=== PATIENT | male | born 1950 | race Caucasian/White ===

== ENCOUNTER 2016-07-06 19:07 | Inpatient (IN) ==
--- NOTE | 2016-07-06 19:13 | Emergency Department Note ---
Disposition Clinical Impression: Sepsis Qualifiers: Sepsis type: sepsis due to unspecified organism Qualified Code(s): A41.9 - Sepsis, unspecified organism Regional enteritis of small bowel Qualifiers: Digestive disease complication type: unspecified complication Qualified Code(s) : K50.019 - Crohn's disease of small intestine with unspecified complications Disposition: Admitted As Inpatient Condition: Fair Referrals: NO,PCP [Non-Partnered Physician] - Forms: Work/School Release, ED Satisfaction Letter Abdominal Pain HPI - General Chief Complaint: ED Abdominal Pain Stated Complaint: Abdominal Pain Time Seen by Provider: 07/06/16 19:12 Source: patient Mode of arrival: ambulatory Limitations: no limitations Nursing Notes Reviewed: Yes Vital Signs Reviewed: Yes - History of Present Illness Pt Subjective Complaint: abdominal pain Onset (ago): day(s) (2) Consistency: constant, Worsening Location: diffuse Pain Severity: severe Quality: aching Radiation: none Migration to: no migration Improves with: nothing Worsens with: nothing Associated symptoms: Reports: nausea, vomiting, fever, anorexia. Denies: diarrhea, hematuria Treatments prior to arrival: none - Related Data Home Medications Medication Instructions Recorded Confirmed Carvedilol [Coreg] 6.25 mg PO BID 10/15/15 10/26/15 Escitalopram [Lexapro] 10 mg PO DAILY 10/15/15 10/26/15 OLANZapine [Zyprexa] 5 mg PO BID 10/23/15 10/26/15 Ipratropium/Albuterol Sulfate 1 puff IH TID 07/06/16 07/06/16 [Combivent Respimat Inhal [place]] OLANZapine [Zyprexa] 10 mg PO QPM 07/06/16 07/06/16 Ranitidine HCl [Acid Bag Repairer] 150 mg PO BID 07/06/16 07/06/16 Sennosides/Docusate Sodium [Senna 1 each PO HS 07/06/16 07/06/16 Plus] Tamsulosin [Flomax] 0.4 mg PO HS 07/06/16 07/06/16 Allergies Allergy/AdvReac Type Severity Reaction Status Date / Time haloperidol [From Haldol] Allergy Hives Verified 10/15/15 14:00 All systems ED: reviewed and negative except as stated. Constitutional: Reports: fever Cardiovascular: Denies: chest pain, palpitations, dyspnea on exertion Gastrointestinal: Denies: hematemesis, melena, hematochezia Genitourinary: Denies: urgency, dysuria, frequency Abdominal Pain PMH - Past Medical History Medical history: Reports: COPD, GI bleed, hepatitis, hypertension, other (PUD) Psychiatric history: Reports: anxiety, bipolar, depression - Social History Smoking status: Current every day smoker Alcohol use: Reports: heavy Drug use: Reports: none Physical Exam - General Limitations: no limitations - Head Head exam: atraumatic, normocephalic, normal inspection - Eye Eye exam: Present: normal appearance, PERRL, EOMI - ENT ENT exam: normal exam, normal oropharynx, mucous membranes moist - Neck Neck exam: Present: normal inspection, full ROM, trachea midline - Chest Chest inspection: Present: normal inspection, symmetric chest wall rise - Respiratory Respiratory exam: Present: normal lung sounds bilaterally - Cardiovascular Cardiovascular exam: Present: tachycardia, normal heart sounds ( ) - Abdominal Exam Abdominal exam: Present: soft, tenderness, guarding (voluntary), normal bowel sounds Abdominal tenderness: Present: RLQ, moderate - Back Exam Back exam: Present: normal inspection, full ROM. Absent: tenderness - Neurological Exam Neurological exam: Present: alert, oriented X3 - Psychiatric Psychiatric exam: Present: normal affect, normal mood - Skin Skin exam: Present: warm, dry, intact, normal color Course - Reevaluation(s) Reevaluation #1: After 1 dose of pain medication patient states his pain is better he still has pain localized to the right lower quadrant he still does not have signs of peritonitis he does not have a rigid abdomen his belly is soft he really is not complaining any pain outside pushing the right lower quadrant he does have some mild voluntary guarding Time: 21:58 - Consultations Consultation #1: Dr. Boothe consultation would like the patient to ICU NG tube and Wilde catheter continue parenteral antibiotics IV fluids if he has any changes of his abdominal exam showing signs of peritonitis or hypotension he needs notified Time: 22:07 Consultation #2: dr. salazar to admit to ICU Time: 22:28 Vital Signs Temperature 101.4 F H 07/06/16 19:15 Pulse Rate 132 07/06/16 19:15 Respiratory Rate 16 07/06/16 19:15 Blood Pressure 137/97 07/06/16 19:15 O2 Sat by Pulse Oximetry 93 L 07/06/16 19:15 Temperature 101.4 F H 07/06/16 19:15 Pulse Rate 127 07/06/16 21:08 Respiratory Rate 18 07/06/16 21:08 Blood Pressure 107/65 07/06/16 21:08 O2 Sat by Pulse Oximetry 95 07/06/16 21:08 Oxygen Delivery Oxygen Delivery Nasal Cannula Abdominal Pain - Differential Diagnosis Differential Diagnosis: Likely: abdominal pain non-specific, abdominal pain mimics ectopic , acute appendicitis, constipation, diverticulitis, endometriosis, gastroenteritis, ischemic bowel, pancreatitis, small bowel obstruction - Medical Records Medical records reviewed: Yes I reviewed the patient's medical records. - Lab Data Lab results reviewed: Yes I reviewed the patient's lab results. Result diagrams: 07/06/16 19:21 07/06/16 19:21 Lab Results 07/06/16 07/06/16 07/06/16 Range/Units 19:21 19:21 19:21 WBC 14.5 H (4.3-11.1) K/mcL RBC 5.46 (4.19-5.50) M/mcL Hgb 14.3 (12.9-16.9) g/dL Hct 43.3 (37.5-50.1) % MCV 79.3 L (83.0-100.0) fL MCH 26.2 L (28.0-33.3) pg MCHC 33.0 (31.6-35.5) g/dL RDW 17.7 H (11.5-14.5) % Plt Count 415 H (140-400) K/mcL MPV 9.6 (9.4-12.4) fL Immature Gran % 0.6 (0-4) % Seg Neutrophils % 88.0 % Lymphocytes % 6.0 % Monocytes % 5.0 % Eosinophils % 0.1 % Basophils % 0.3 % Neutrophils # 12.8 H (1.6-8.9) K/mcL Lymphocytes # 0.9 (0.6-4.6) K/mcL Monocytes # 0.7 (0.0-1.3) K/mcL Eosinophils # 0.0 (0.0-0.6) K/mcL Basophils # 0.0 (0.0-0.2) K/mcL PT 13.6 H (9.4-12.1) Seconds INR 1.3 APTT 32.6 (26.0-36.0) Seconds ABG pH (7.32-7.45) pH Units ABG pCO2 (35-45) mmHg ABG pO2 (85-104) mmHg ABG HCO3 (21-27) mEQ/L ABG Total CO2 (20-26) mEq/L ABG O2 Saturation (95-98) % ABG Base Excess (-2.0 to 3.0) mEq/L Liter Flow L/MIN Blood Gas Modality Inspired O2 % Sodium 134 L (136-145) mEq/L Potassium 4.9 H (3.5-4.5) mEq/L Chloride 99 (98-109) mEq/L Carbon Dioxide 20 (19-29) mEq/L BUN 18 (8-26) mg/dL Creatinine 1.06 (0.72-1.25) mg/dL Est GFR ( Amer) > 60 (> 60) Est GFR (Non-Af Amer) > 60 (> 60) BUN/Creatinine Ratio 17 (6-26) Glucose 110 H (70-99) mg/dL Calculated Osmolality 281 (280-300) Lactic Acid (0.5-2.2) mmol/L Calcium 10.0 (8.6-10.8) mg/dL Magnesium 1.5 L (1.6-2.6) mg/dL Total Bilirubin 0.7 (0.2-1.2) mg/dL AST 14 (5-34) Units/L ALT 10 (0-55) Units/L Alkaline Phosphatase 88 (38-126) Units/L Serum Total Protein 9.0 H (6.0-8.3) g/dL Albumin 3.7 (3.5-5.0) g/dL Globulin 5.3 H (2.4-3.5) g/dL Albumin/Globulin Ratio 0.7 L (1.1-2.2) Lipase 31 (8-78) Units/L Ethyl Alcohol (0-10) mg/dL Blood Type Antibody Screen 07/06/16 07/06/16 07/06/16 Range/Units 19:21 19:21 19:29 WBC (4.3-11.1) K/mcL RBC (4.19-5.50) M/mcL Hgb (12.9-16.9) g/dL Hct (37.5-50.1) % MCV (83.0-100.0) fL MCH (28.0-33.3) pg MCHC (31.6-35.5) g/dL RDW (11.5-14.5) % Plt Count (140-400) K/mcL MPV (9.4-12.4) fL Immature Gran % (0-4) % Seg Neutrophils % % Lymphocytes % % Monocytes % % Eosinophils % % Basophils % % Neutrophils # (1.6-8.9) K/mcL Lymphocytes # (0.6-4.6) K/mcL Monocytes # (0.0-1.3) K/mcL Eosinophils # (0.0-0.6) K/mcL Basophils # (0.0-0.2) K/mcL PT (9.4-12.1) Seconds INR APTT (26.0-36.0) Seconds ABG pH (7.32-7.45) pH Units ABG pCO2 (35-45) mmHg ABG pO2 (85-104) mmHg ABG HCO3 (21-27) mEQ/L ABG Total CO2 (20-26) mEq/L ABG O2 Saturation (95-98) % ABG Base Excess (-2.0 to 3.0) mEq/L Liter Flow L/MIN Blood Gas Modality Inspired O2 % Sodium (136-145) mEq/L Potassium (3.5-4.5) mEq/L Chloride (98-109) mEq/L Carbon Dioxide (19-29) mEq/L BUN (8-26) mg/dL Creatinine (0.72-1.25) mg/dL Est GFR ( Amer) (> 60) Est GFR (Non-Af Amer) (> 60) BUN/Creatinine Ratio (6-26) Glucose (70-99) mg/dL Calculated Osmolality (280-300) Lactic Acid 4.1 H* (0.5-2.2) mmol/L Calcium (8.6-10.8) mg/dL Magnesium (1.6-2.6) mg/dL Total Bilirubin (0.2-1.2) mg/dL AST (5-34) Units/L ALT (0-55) Units/L Alkaline Phosphatase (38-126) Units/L Serum Total Protein (6.0-8.3) g/dL Albumin (3.5-5.0) g/dL Globulin (2.4-3.5) g/dL Albumin/Globulin Ratio (1.1-2.2) Lipase (8-78) Units/L Ethyl Alcohol < 10 (0-10) mg/dL Blood Type B POSITIVE Antibody Screen NEGATIVE 07/06/16 07/06/16 Range/Units 20:33 20:50 WBC (4.3-11.1) K/mcL RBC (4.19-5.50) M/mcL Hgb (12.9-16.9) g/dL Hct (37.5-50.1) % MCV (83.0-100.0) fL MCH (28.0-33.3) pg MCHC (31.6-35.5) g/dL RDW (11.5-14.5) % Plt Count (140-400) K/mcL MPV (9.4-12.4) fL Immature Gran % (0-4) % Seg Neutrophils % % Lymphocytes % % Monocytes % % Eosinophils % % Basophils % % Neutrophils # (1.6-8.9) K/mcL Lymphocytes # (0.6-4.6) K/mcL Monocytes # (0.0-1.3) K/mcL Eosinophils # (0.0-0.6) K/mcL Basophils # (0.0-0.2) K/mcL PT (9.4-12.1) Seconds INR APTT (26.0-36.0) Seconds ABG pH 7.38 (7.32-7.45) pH Units ABG pCO2 35 (35-45) mmHg ABG pO2 67 L (85-104) mmHg ABG HCO3 20.7 L (21-27) mEQ/L ABG Total CO2 21.8 (20-26) mEq/L ABG O2 Saturation 93 L (95-98) % ABG Base Excess -3.8 L (-2.0 to 3.0) mEq/L Liter Flow 2 L/MIN Blood Gas Modality [place] Inspired O2 28 % Sodium (136-145) mEq/L Potassium (3.5-4.5) mEq/L Chloride (98-109) mEq/L Carbon Dioxide (19-29) mEq/L BUN (8-26) mg/dL Creatinine (0.72-1.25) mg/dL Est GFR ( Amer) (> 60) Est GFR (Non-Af Amer) (> 60) BUN/Creatinine Ratio (6-26) Glucose (70-99) mg/dL Calculated Osmolality (280-300) Lactic Acid 1.9 (0.5-2.2) mmol/L Calcium (8.6-10.8) mg/dL Magnesium (1.6-2.6) mg/dL Total Bilirubin (0.2-1.2) mg/dL AST (5-34) Units/L ALT (0-55) Units/L Alkaline Phosphatase (38-126) Units/L Serum Total Protein (6.0-8.3) g/dL Albumin (3.5-5.0) g/dL Globulin (2.4-3.5) g/dL Albumin/Globulin Ratio (1.1-2.2) Lipase (8-78) Units/L Ethyl Alcohol (0-10) mg/dL Blood Type Antibody Screen - Radiology Data Radiology results reviewed: Yes I reviewed the patient's radiology results. Critical Care Time Critical Care Time: Yes Total Critical Care Time: 40 Attestation: Critical care performed: Time is exclusive of separately billable procedures. Time includes: direct patient care, patient reassessment, coordination of patient care, interpretation of data (laboratory data, radiology data, and respiratory data), review of patient's medical records, medical consultation and documentation of patient care. Procedures included in critical care time: Procedures excluded from critical care time:
[2016-07-06] MEDS ORDERED: 0.9 % Sodium Chloride 1,000 ML IVC ONE ×2 (19:20→20:45)
[2016-07-06] MEDS ORDERED: Ondansetron ODT 4 MG TAB.RAPDIS SL ONE (19:33)
[2016-07-06] MEDS ORDERED: *HR* HYDROmorphone (PF) 1 MG/ML SYRINGE IV ONE (19:33)
[2016-07-06 19:40] LABS: Basophils % 0.3 %; Eosinophils % 0.1 %; Hematocrit 43.3 % (37.5-50.1); Hemoglobin 14.3 g/dL (12.9-16.9); Immature Granulocytes % 0.6 % (0-4); Lymphocytes # 0.9 K/mcL (0.6-4.6); Mean Corpuscular Hemoglobin 26.2 pg (28.0-33.3); Mean Corpuscular Volume 79.3 fL (83.0-100.0); Mean Platelet Volume 9.6 fL (9.4-12.4); Monocytes # 0.7 K/mcL (0.0-1.3); Neutrophils # 12.8 K/mcL (1.6-8.9); Platelet Count 415 K/mcL (140-400); Red Blood Count 5.46 M/mcL (4.19-5.50); Red Cell Distribution Width 17.7 % (11.5-14.5)
[2016-07-06 19:51] LABS: INR 1.3; Prothrombin Time 13.6 Seconds (9.4-12.1)
[2016-07-06 19:53] LABS: Activated Partial Thrombo Time 32.6 Seconds (26.0-36.0)
[2016-07-06 19:54] LABS: Alanine Aminotransferase 10 Units/L (0-55); Albumin 3.7 g/dL (3.5-5.0); Albumin/Globulin Ratio 0.7 (1.1-2.2); Alkaline Phosphatase 88 Units/L (38-126); Aspartate Amino Transferase 14 Units/L (5-34); BUN/Creatinine Ratio 17 (6-26); Bilirubin,Total 0.7 mg/dL (0.2-1.2); Blood Urea Nitrogen 18 mg/dL (8-26); Carbon Dioxide 20 mEq/L (19-29); Chloride 99 mEq/L (98-109); Globulin 5.3 g/dL (2.4-3.5); Glucose 110 mg/dL (70-99); Lipase 31 Units/L (8-78); Magnesium 1.5 mg/dL (1.6-2.6); Osmolality,Calculated 281 (280-300); Potassium 4.9 mEq/L (3.5-4.5); Sodium 134 mEq/L (136-145); eGFR For African Americans > 60 (> 60); eGFR For Non-African Americans > 60 (> 60)
[2016-07-06] MEDS ORDERED: Piperacillin/Tazobactam 3.375 GM in D5% in Water (Mini-Bag+) 100 ML IVPB ONE (19:57)
[2016-07-06 20:38] LABS: ABG Base Excess -3.8 mEq/L (-2.0 to 3.0); ABG HCO3 20.7 mEQ/L (21-27); ABG Oxygen Saturation 93 % (95-98); ABG PCO2 35 mmHg (35-45); ABG PH 7.38 pH Units (7.32-7.45); ABG PO2 67 mmHg (85-104); ABG TCO2 21.8 mEq/L (20-26)
[2016-07-06 20:39] LABS: Blood Gas FiO2 28 %; Blood Gas Liter Flow 2 L/MIN
[2016-07-06] MEDS ORDERED: MetroNIDAZOLE 500 MG/100 ML 500 MG/100 ML BAG IVPB ONE (20:53)
[2016-07-06] MEDS ORDERED: Levofloxacin 750 MG/150 ML 750 MG/150 ML BAG IVPB ONE (20:53)
[2016-07-07] MEDS ORDERED: Naloxone 0.4 MG/ML INJ IVP PRN (01:50)
[2016-07-07] MEDS ORDERED: *HR* LORazepam 2 MG/ML VIAL IVP PRN (01:50)
[2016-07-07] MEDS ORDERED: Ketorolac 15 MG/ML VIAL IVP PRN (02:09)
--- NOTE | 2016-07-07 02:31 | Internal Med History&Physical ---
<YonySuyapaheriberto Beckford - Last Filed: 07/07/16 05:41> Date of Encounter: 07/07/16 Time of Encounter: 02:00 Assessment and Plan (1) Sepsis Current visit: Yes Status: Acute WBC 14.5, tachycardia, tachypnea, hypotension, MAP 61 Febrile upon presentation to hospital Lactate 4.6, Cr 1.06, InR 1.3 CT abdomen/pelvis: multiple loops of fluid-filled, non dilated small bowel -Bowel wall thickening with surrounding fat stranding and free fluid -Diffuse pericholecystic, pernephritic, pericystic stranding Concern for SBO versus small bowel enteritis Flagyl, Levoquin, and Zosyn given in ED Continue Zosyn for now Will challenge with fluids CXR, pending Blood culture, pending Qualifiers: Sepsis type: sepsis due to unspecified organism Qualified Code(s): A41.9 - Sepsis, unspecified organism (2) Small bowel obstruction Current visit: Yes Status: Acute CT abdomen/pelvis: multiple loops of fluid-filled, non dilated small bowel -Bowel wall thickening with surrounding fat stranding and free fluid -Diffuse pericholecystic, pernephritic, pericystic stranding Concern for SBO versus small bowel enteritis Surgery team has been consulted Recommend NGT decompression. However, patient is refusing. I discussed the risks of this decision at length with patient. NPO diet (3) COPD (chronic obstructive pulmonary disease) Current visit: No Status: Acute Patient with cough productive of 3 weeks duration On exam, patient is hypoxic ABG pH 7.38, pO2 67, pCO2 35, HCO3 20.7, TCO2 21.8, O2 sat 93% on 3L CT Ab/Pelvis: Atelectasis bilateral lung bases, emphysematous changes identified CXR, pending Cannot exclude the possibility of exacerbation complicating current condition Qualifiers: COPD type: unspecified COPD Qualified Code(s): J44.9 - Chronic obstructive pulmonary disease, unspecified (4) Hypomagnesemia Current visit: Yes Status: Acute replaced 2g (5) Hepatitis C Current visit: No Status: Chronic Qualifiers: Viral hepatitis chronicity: chronic Hepatic coma status: without hepatic coma Qualified Code(s): B18.2 - Chronic viral hepatitis C (6) DVT prophylaxis Current visit: No Status: Acute Internal Medicine - H&P: HPI Chief complaint: abdominal pain, nausea, vomiting Admitted From: Emergency Dept Plans for Post Hospital Care: Home History of present illness: Mr. Melendez is a 66 year old male who presented to the hospital with 3 day history of abdominal pain. Patient describes pain as a sharp, stabbing pain that began umbilicus. Pain began to wrap around to sides bilaterally and radiated to the back. Pain is an 8/10 at this time. Upon onset of abdominal pain, patient had 4 episodes of non-bloody diarrhea. He began vomiting the following morning. Patient states that he has had a similar episode in the past. He claims that his "bowel twisted on itself". He was treated at [facility] in [place], [place]. However, he does not remember if he had a bowel resection was performed at that time. He states that pain was improved with lying down. Pain worsened with coughing. Pain has worsened over the last 3 days. Admits fever, chills, dizziness, racing heart, tachypnea, dyspnea, tensmus, nausea, vomiting Denies diaphoresis, chest pain, palpitations, increased cough with sputum, increased wheeze, hematochezia, melena, urinary symptoms Past Med Surg Social Fam HX - Past Medical History Medical history: COPD, GI bleed, hepatitis (recently treated for Hep C), hypertension, other Psychiatric history: anxiety, bipolar, depression - Past Surgical History Surgical History: colostomy, other (bowel resection with colostomy for diverticulitis) - Social History Smoking Status: Current every day smoker Smokeless Tobacco Status: No Alcohol use: none Drug use: none Internal Medicine - H&P: Meds Carvedilol [Coreg] 6.25 mg PO BID 10/15/15 [History] Escitalopram [Lexapro] 10 mg PO DAILY 10/15/15 [History] OLANZapine [Zyprexa] 5 mg PO QAM 10/23/15 [History] Ipratropium/Albuterol Sulfate [Combivent Respimat Inhal [place]] 1 puff IH TID [History] OLANZapine [Zyprexa] 10 mg PO QPM 07/06/16 [History] Ranitidine HCl [Acid Concrete Pile Driver Operator] 150 mg PO BID 07/06/16 [History] Sennosides/Docusate Sodium [Senna Plus] 1 each PO HS 07/06/16 [History] Tamsulosin [Flomax] 0.4 mg PO HS 07/06/16 [History] Allergies haloperidol [From Haldol] Allergy (Verified 10/15/15 14:00) Hives All Systems PM: A 10-system review of systems was performed and is negative for pertinent findings except as documented above in the HPI. - Constitutional Constitutional: chills, fever(s) - Cardiovascular Cardiovascular ROS IM: dyspnea, irregular heart rhythm, no chest pain, no diaphoresis, no palpitations - Respiratory Respiratory: cough (cough present at baseline, now cough is productive of yellow sputum), dyspnea, pain with cough (pain located in abdomen with cough), no wheezing - Gastrointestinal Gastrointestinal: abdominal pain, bloating, change in bowel habits, change in stool character, nausea, tenesmus, vomiting, no hematochezia, no melena - Genitourinary Genitourinary ROS male: no difficulty urinating - Constitutional Vitals: Temp Pulse Resp BP Pulse Ox 97.6 F 107 14 76/55 93 L 07/07/16 00:00 07/07/16 02:00 07/07/16 02:00 07/07/16 02:00 07/07/16 02:00 General appearance: Present: A&O X 3, answers questions appropriately - Head Head exam: Present: atraumatic, normal inspection, normocephalic - Eye Eye exam: Present: scleral icterus - Neck Neck exam general surgery: Present: full ROM, normal inspection, supple - Respiratory Respiratory exam: Present: CTAB, tachypnea - Cardiovascular Cardiovascular exam: Present: distant heart sounds, +S1, +S2, tachycardia - GI/Abdominal GI/Abdominal exam: Present: distended, guarding, rebound, tenderness. Absent: normal bowel sounds Additional comments: post-surgical scars present - Extremities Exam Extremities exam: Absent: pedal edema (RUQ and RLQ bowel sounds absent) - Neurological Exam Neurological exam: Present: oriented X3 - Psychiatric Psychiatric exam: Present: normal affect, normal mood Internal Med - H&P Results - Labs CBC & Chem 7: 07/07/16 05:02 07/07/16 05:02 - Attending Attestation I examined this patient and my medical decision-making was reviewed with the GUIDE DOG INSTRUCTOR/PA/Advanced Practice Nurse/Resident Physician. I agree with the documented findings, disposition and treatment plan as described except to the extent set forth below. <Madeline Villa R - Last Filed: 07/07/16 09:51> Date of Encounter: 07/07/16 Internal Medicine - H&P: HPI History of present illness: Mr. Melendez is a 66 year old male All Systems PM: A 10-system review of systems was performed and is negative for pertinent findings except as documented above in the HPI. - Constitutional Vitals: Temp Pulse Resp BP Pulse Ox 98.1 F 96 18 89/58 93 L 07/07/16 07:30 07/07/16 09:00 07/07/16 09:00 07/07/16 09:00 07/07/16 09:00 Internal Med - H&P Results - Labs CBC & Chem 7: 07/07/16 05:02 07/07/16 05:02 Labs: Short CBC 07/07/16 Range/Units 05:02 WBC 22.5 H D (4.3-11.1) K/mcL Hgb 11.4 L D (12.9-16.9) g/dL Hct 36.0 L (37.5-50.1) % Plt Count 293 (140-400) K/mcL Neutrophils # 20.0 H (1.6-8.9) K/mcL BMP 07/07/16 05:02 Sodium 136 Potassium 4.9 H Chloride 106 Carbon Dioxide 18 L BUN 22 Creatinine 1.22 Glucose 90 Calcium 8.1 L D Urine 07/07/16 Range/Units 05:40 Urine Color Yellow (Yellow) Urine Clarity Clear (Clear) Urine pH 5.5 (5.0-8.0) pH Units Ur Specific Vendor 1.020 (1.010-1.025) Urine Protein Trace (Neg-Trace) mg/dL Urine Glucose (UA) Normal (Normal) mg/dL - Impressions ITS Impressions Chest X-Ray 07/07/16 02:42 IMPRESSION: Mild perihilar edema with bibasilar atelectasis. D/ / 07/07/2016 07:03:49 Nitesh López MD / bcarter Interpreting Provider: Nitesh López MD - Attending Attestation I examined this patient and my medical decision-making was reviewed with the GUIDE DOG INSTRUCTOR/PA/Advanced Practice Nurse/Resident Physician. I agree with the documented findings, disposition and treatment plan as described except to the extent set forth below. I have personally evaluated the pt and discussed the details with the architecture internship/ resident. Pt was admitted with 3 day h/o abdominal pain and diarrhea prior to presentation. He denies any food born infection. He has abdominal tenderness. CT scan of the abdomen and pelvis, shows possible enteritis and free fluid. Pt was hypotensive no significant improvement after about 3 L - will give further IV fluid challenge. If not improving, will consider vasopressors. He was given levofloxacin and metronidazole, in the ER. Change the antibiotics to ertapenem. Will check for c diff toxin and stool culture. Surgical consultation. CXR shows atelectasis start incentive spirometer. Reduce IV fluids.
[2016-07-07] MEDS: 0.9 % Sodium Chloride 1,000 ML IVC SCH ×4 (02:34→23:27)
[2016-07-07] MEDS ORDERED: 0.9 % Sodium Chloride 1,000 ML IVC ONE ×2 (04:33→05:42)
[2016-07-07] MEDS ORDERED: Magnesium Sulfate 2 GM in D5% in Water 100 ML IVPB ONE (04:40)
[2016-07-07] MEDS: Ertapenem 1,000 MG in 0.9 % Sodium Chloride Mini Bag 100 ML IVPB SCH (04:56)
[2016-07-07 05:11] LABS: Basophils # 0.1 K/mcL (0.0-0.2); Basophils % 0.2 %; Hemoglobin 11.4 g/dL (12.9-16.9); Immature Granulocytes % 0.5 % (0-4); Lymphocytes # 1.4 K/mcL (0.6-4.6); Lymphocytes % 6.2 %; Mean Corpuscular HGB Conc 31.7 g/dL (31.6-35.5); Mean Corpuscular Hemoglobin 25.5 pg (28.0-33.3); Mean Corpuscular Volume 80.5 fL (83.0-100.0); Monocytes % 4.4 %; Platelet Count 293 K/mcL (140-400); Red Blood Count 4.47 M/mcL (4.19-5.50); Red Cell Distribution Width 17.2 % (11.5-14.5); Segmented Neutrophils % 88.7 %
[2016-07-07 05:25] LABS: BUN/Creatinine Ratio 18 (6-26); Blood Urea Nitrogen 22 mg/dL (8-26); Carbon Dioxide 18 mEq/L (19-29); Chloride 106 mEq/L (98-109); Glucose 90 mg/dL (70-99); Osmolality,Calculated 285 (280-300); Potassium 4.9 mEq/L (3.5-4.5); Sodium 136 mEq/L (136-145); eGFR For African Americans > 60 (> 60); eGFR For Non-African Americans 60 (> 60)
[2016-07-07 05:26] LABS: Calcium 8.1 mg/dL (8.6-10.8)
[2016-07-07] MEDS ORDERED: Acetaminophen 325 MG TABLET PO PRN (05:43)
[2016-07-07 05:46] LABS: Bilirubin,Urine Small (Negative); Blood,Urine Negative (Negative); Clarity,Urine Clear (Clear); Color,Urine Yellow (Yellow); Glucose,Urine (UA) Normal (Normal); Ketones,Urine Negative (Negative); Leukocyte Esterase,Urine Negative (Negative); Nitrite,Urine Negative (Negative); PH,Urine 5.5 pH Units (5.0-8.0); Protein,Urine Trace mg/dL (Neg-Trace); Urobilinogen,Urine Normal (Normal)
[2016-07-07] MEDS ORDERED: Sodium Phosphate 30 MMOL in D5% in Water 100 ML IVPB PRN (05:48)
[2016-07-07] MEDS ORDERED: Calcium Gluconate 1,000 MG in D5% in Water 100 ML IVPB PRN (05:48)
[2016-07-07] MEDS ORDERED: Magnesium Sulfate 2 GM in D5% in Water 100 ML IVPB PRN (05:52)
[2016-07-07] MEDS ORDERED: Piperacillin/Tazobactam 3.375 GM in D5% in Water (Mini-Bag+) 100 ML IVPB SCH (08:00)
[2016-07-07] MEDS: *HR* Enoxaparin 40 MG/0.4 ML SYRINGE SQ SCH (08:16)
[2016-07-07] MEDS: *HR* HYDROmorphone (PF) 1 MG/ML SYRINGE IVP PRN ×3 (08:16→20:06)
[2016-07-07] MEDS: Nicotine 21 MG PATCH.TD24 TD SCH (08:17)
--- NOTE | 2016-07-07 08:17 | Pulmonology Consult Note ---
Date of Encounter: 07/07/16 Time of Encounter: 08:08 History of Present Illness Consult date: 07/07/16 Requesting physician: Suyapa Bhakta Reason for consult: other (Severe sepsis, small bowel enteritis) Chief complaint: Abdominal pain History of present illness: Mr. kaur is a 66 year old male with history of COPD, history of GI bleed, history of treated Hepatitis C, hypertension, marfanoid syndome, neurofibromatosis, and surgical history of colon section in the due to diverticulitis who presented to the ED with worsening intermittent sharp stabbing 8/10 abdominal pain that radiated from his umbilicus to his back bilaterally. Patient had 4 episodes of nonbloody diarrhea, nausea, and vomiting during onset of the abdominal pain. He has not had anything to eat, has had no additional bowel movements, and no additional episodes of vomiting for about 3 days. Patient reports pain when coughing, and improved when lying down. Patient has not had this sort of pain in the past. Patient does report some fever and chills. Patient also reports chronic cough, but no increased sputum, change in sputum color, or increased shortness of breath. Patient denies headache, changes in vision or hearing, dysphagia, chest pain, shortness of breath, changes in urination, dysuria, weakness, or loss of sensation. Upon admission patient was determined to be hypotensive, tachypneic, tachycardic , with wbc 14.5, and lactic acid of 4.1. Patient was started on antibiotics, blood cultures sent, and bolus of fluids given. CT abdomen pelvis revealed multiple loops of fluid-filled nondilated small bowel with mild small bowel wall thickening throughout the pelvis and right lower quadrant with surrounding mesenteric stranding as well as a small amount of simple free fluid, no definite obstructive process. CXR revealed mild perfihilar edema with bibasilar atelectasis. EKG revealed sinus tachycardia. Past Med Surg Social Fam HX - Past Medical History Medical history: COPD, GI bleed, hepatitis (treated for Hep C), hypertension, other (neurofibromatosis (confirmed by resection and biopsy), marfanoid syndrome ) Psychiatric history: anxiety, bipolar, depression - Past Surgical History Surgical History: colectomy (unspecified laterality in for diverticulitis) , colostomy (history of diverting colostomy, reanastomosed) - Social History Smoking Status: Current every day smoker Smokeless Tobacco Status: No Alcohol use: none Drug use: none Medications and Allergies Carvedilol [Coreg] 6.25 mg PO BID 10/15/15 [History] Escitalopram [Lexapro] 10 mg PO DAILY 10/15/15 [History] OLANZapine [Zyprexa] 5 mg PO QAM 10/23/15 [History] Ipratropium/Albuterol Sulfate [Combivent Respimat Inhal [place]] 1 puff IH TID [History] OLANZapine [Zyprexa] 10 mg PO QPM 07/06/16 [History] Ranitidine HCl [Acid Public Address System Mechanic] 150 mg PO BID 07/06/16 [History] Sennosides/Docusate Sodium [Senna Plus] 1 each PO HS 07/06/16 [History] Tamsulosin [Flomax] 0.4 mg PO HS 07/06/16 [History] Allergies haloperidol [From Haldol] Allergy (Verified 10/15/15 14:00) Hives All Systems: A 10-system review of systems was performed and is negative for pertinent findings except as documented above in the HPI. - Constitutional Constitutional: as per HPI, chills, fever(s), no headache(s), no night sweats, no weakness - EENT Eyes: as per HPI Ears: as per HPI Nose, mouth and throat: as per HPI, no dysphagia, no headache(s), no neck pain - Cardiovascular Cardiovascular: as per HPI, dyspnea, palpitations, no chest pain, no edema - Respiratory Respiratory: as per HPI, cough, dyspnea, no pain on inspirtation, no chest congestion, no excessive phlegm production, no change in phlegm color - Gastrointestinal Gastrointestinal: as per HPI, abdominal pain (diffuse), diarrhea, nausea, vomiting, no heartburn, no melena - Genitourinary Genitourinary: as per HPI, no dysuria, no hematuria - Musculoskeletal Musculoskeletal: as per HPI, no numbness, no tingling - Integumentary Integumentary: as per HPI - Neurological Neurological: as per HPI, no abnormal gait, no confusion, no dizziness, no headache(s), no tingling, no weakness Physical Examination Vital Signs: Vital Signs, Last 4 Hours Temp Pulse Resp BP Pulse Ox 07/07/16 07:30 98.1 F 07/07/16 07:00 98 12 102/65 91 L 07/07/16 06:00 93 16 94/60 91 L 07/07/16 05:04 98.1 F 07/07/16 05:00 92 16 92/62 94 L General appearance: no acute distress, alert Eyes: nonicteric ENT: oropharynx moist Neck: supple, no lymphadenopathy, no JVD Effort: normal Inspection: normal, other (pectus excavatum) Auscultation: bilateral: diminished breath sounds, wheezes Cardiovascular: other (tachycardic, s1 and s2 normal, no audible murmurs) Gastrointestinal: absent bowel sounds, tender (mild, all quadrants), other ( distended, surgical scars noted, periumbilical hernia noted) Integumentary: normal Extremities: no cyanosis, no edema, no clubbing, pink and warm, pulses normal Musculoskeletal: no deformities Gait: normal posture normal mental status, non-focal exam, pupils equal and round, CN II-XII normal, motor strength normal and symmetric mood appropriate, affect normal Results - Laboratory Findings CBC and BMP: 07/07/16 05:02 07/07/16 05:02 ABG ABG pH 7.38 pH Units (7.32-7.45) 07/06/16 20:33 ABG pCO2 35 mmHg (35-45) 07/06/16 20:33 ABG pO2 67 mmHg (85-104) L 07/06/16 20:33 ABG O2 Saturation 93 % (95-98) L 07/06/16 20:33 PT/INR, D-dimer PT 13.6 Seconds (9.4-12.1) H 07/06/16 19:21 Abnormal lab findings: Abnormal lab results WBC 22.5 K/mcL (4.3-11.1) H D 07/07/16 05:02 Hgb 11.4 g/dL (12.9-16.9) L D 07/07/16 05:02 Hct 36.0 % (37.5-50.1) L 07/07/16 05:02 MCV 80.5 fL (83.0-100.0) L 07/07/16 05:02 MCH 25.5 pg (28.0-33.3) L 07/07/16 05:02 RDW 17.2 % (11.5-14.5) H 07/07/16 05:02 Neutrophils # 20.0 K/mcL (1.6-8.9) H 07/07/16 05:02 PT 13.6 Seconds (9.4-12.1) H 07/06/16 19:21 ABG pO2 67 mmHg (85-104) L 07/06/16 20:33 ABG HCO3 20.7 mEQ/L (21-27) L 07/06/16 20:33 ABG O2 Saturation 93 % (95-98) L 07/06/16 20:33 ABG Base Excess -3.8 mEq/L (-2.0 to 3.0) L 07/06/16 20:33 Potassium 4.9 mEq/L (3.5-4.5) H 07/07/16 05:02 Carbon Dioxide 18 mEq/L (19-29) L 07/07/16 05:02 Calcium 8.1 mg/dL (8.6-10.8) L D 07/07/16 05:02 Ionized Calcium 1.02 mmol/L (1.15-1.35) L 07/07/16 05:02 Magnesium 1.5 mg/dL (1.6-2.6) L 07/06/16 19:21 Serum Total Protein 9.0 g/dL (6.0-8.3) H 07/06/16 19:21 Globulin 5.3 g/dL (2.4-3.5) H 07/06/16 19:21 Albumin/Globulin Ratio 0.7 (1.1-2.2) L 07/06/16 19:21 Urine Bilirubin Small (Negative) H 07/07/16 05:40 - Clinical Findings Intake & Output: Intake & Output 07/06/16 07/07/16 07/07/16 23:59 07:59 15:59 Intake Total 700 / 3050 2204 / 2204 Output Total 550 / 550 Balance 700 / 3050 1654 / 1654 Consult Discharge Plan - Plan [facility]errals: [facility] [Primary Care Provider] -
[2016-07-07] MEDS ORDERED: NON-FORMULARY MEDICATION 1 EACH EACH (Ipratropium/Albuterol Sulfate [Combivent Respimat In IH SCH (09:00)
[2016-07-07] MEDS: Ipratropium 1 PUFF INHALER IH SCH ×2 (10:24→17:19)
--- NOTE | 2016-07-07 11:03 | Electrocardiograph Report ---
[facility] Test Date: 2016-07-06 Pat Name: Ankit Melendez Department: 103 Room: [facility] Gender: M Head Animal Trainer: MARLIN : 1950 Requested By: Duane Bhakta Order Number: [id number] Reading MD: Wing Martinez MD Measurements Intervals [place] Rate: 134 P: 48 VA: 167 QRS: 42 QRSD: 81 T: 30 QT: 275 QTc: 354 Interpretive Statements SINUS TACHYCARDIA Electronically Signed On 07-07-16 11:01:27 EST by Wing Martinez MD
--- NOTE | 2016-07-07 16:12 | General Surgery Consult Note ---
Date of Encounter: 07/07/16 Time of Encounter: 15:30 Assessment and Plan (1) Enteritis Current Visit: Yes Status: Acute Continue with conservative measures at this time: NPO with NG tube to LIWS IV fluids IV antibiotics- Ertapenem Supportive care/pain control Serial abdominal exams Likely will repeat CT in the am with oral contrast as long as the patient continues to improve Repeat labs in the am Surgery will continue to follow and assess progress- no urgent surgical intervention indicated at this time. History of Present Illness Consult date: 07/07/16 Reason for consult: abdominal pain Requesting physician: Duane Bahkta History of present illness: Mr. Melendez is a 66 year old male who presented to the hospital with 3 day history of abdominal pain. Patient describes pain as a sharp, stabbing pain that began around his umbilicus. Pain radiated around to sides bilaterally and radiated to the back. Pain is an 8/10 at this time but has improved since admission to the hospital. Upon onset of abdominal pain, patient had 4 episodes of non-bloody diarrhea. He did experience some nausea/vomiting prior to arrival to the hospital but states that this is better. Patient states that he has had a similar episode in the past. He claims that his "bowel twisted on itself". He was treated at [facility]. He states that pain was improved with lying down. Pain worsened with coughing. He has had a CT scan which shows concerns for enteritis. We have been asked to see and evaluate the patient for surgical recommendations. Past Med Surg Social Fam HX - Past Medical History Source: old records reviewed Medical history: COPD, GI bleed, hepatitis (recently treated for Hep C), hypertension, other Psychiatric history: anxiety, bipolar, depression - Past Surgical History Surgical History: colostomy (and subsequent revearsal), other (bowel resection with colostomy for diverticulitis) - Social History Smoking Status: Current every day smoker Smokeless Tobacco Status: No Alcohol use: none Drug use: none Current living situation: Home - Independent Activity Level: Independent ambulation Medications and Allergies Carvedilol [Coreg] 6.25 mg PO BID 10/15/15 [History] Escitalopram [Lexapro] 10 mg PO DAILY 10/15/15 [History] OLANZapine [Zyprexa] 5 mg PO QAM 10/23/15 [History] Ipratropium/Albuterol Sulfate [Combivent Respimat Inhal [place]] 1 puff IH TID [History] OLANZapine [Zyprexa] 10 mg PO QPM 07/06/16 [History] Ranitidine HCl [Acid Sheeter Waxer Operator] 150 mg PO BID 07/06/16 [History] Sennosides/Docusate Sodium [Senna Plus] 1 each PO HS 07/06/16 [History] Tamsulosin [Flomax] 0.4 mg PO HS 07/06/16 [History] Allergies haloperidol [From Haldol] Allergy (Verified 10/15/15 14:00) Hives Review of Systems All systems PM: reviewed and no additional remarkable complaints except as stated (in the HPI) All systems PM: A 10-system review of systems was performed and is negative for pertinent findings except as documented above in the HPI. General Surgery Exam Initial Vital Signs Temp Pulse Resp BP Pulse Ox 101.4 F H 132 16 137/97 93 L 07/06/16 19:15 07/06/16 19:15 07/06/16 19:15 07/06/16 19:15 07/06/16 19:15 - General physical appearance well developed, well nourished, moderate pain - Eyes normal ocular movement - ENT normal mucosa, atraumatic, normocephalic - Neck trachea midline - Respiratory normal respiratory effort, clear to auscultation - Cardiovascular Cardiovascular exam: Present: tachycardia - Abdomen Abdomen general surgery: Present: bowel sounds present (hypoactive), soft, distended, tender (moderately tender and improving), wound (NG tube to LIWS) - Integumentary Integumentary general surgery: Present: warm and dry - Neurologic Present: CN 2-12 grossly intact - Psychiatric Psychiatric general surgery: Present: appropriate, oriented to person, oriented to place, oriented to time, speech is normal, memory intact Exam Initial Vital Signs Temp Pulse Resp BP Pulse Ox 101.4 F H 132 16 137/97 93 L 07/06/16 19:15 07/06/16 19:15 07/06/16 19:15 07/06/16 19:15 07/06/16 19:15 Results - Labs 07/07/16 05:02 07/07/16 05:02 Abnormal lab results WBC 22.5 K/mcL (4.3-11.1) H D 07/07/16 05:02 Hgb 11.4 g/dL (12.9-16.9) L D 07/07/16 05:02 Hct 36.0 % (37.5-50.1) L 07/07/16 05:02 MCV 80.5 fL (83.0-100.0) L 07/07/16 05:02 MCH 25.5 pg (28.0-33.3) L 07/07/16 05:02 RDW 17.2 % (11.5-14.5) H 07/07/16 05:02 Neutrophils # 20.0 K/mcL (1.6-8.9) H 07/07/16 05:02 PT 13.6 Seconds (9.4-12.1) H 07/06/16 19:21 ABG pO2 67 mmHg (85-104) L 07/06/16 20:33 ABG HCO3 20.7 mEQ/L (21-27) L 07/06/16 20:33 ABG O2 Saturation 93 % (95-98) L 07/06/16 20:33 ABG Base Excess -3.8 mEq/L (-2.0 to 3.0) L 07/06/16 20:33 Potassium 4.9 mEq/L (3.5-4.5) H 07/07/16 05:02 Carbon Dioxide 18 mEq/L (19-29) L 07/07/16 05:02 Calcium 8.1 mg/dL (8.6-10.8) L D 07/07/16 05:02 Ionized Calcium 1.02 mmol/L (1.15-1.35) L 07/07/16 05:02 Magnesium 1.5 mg/dL (1.6-2.6) L 07/06/16 19:21 Serum Total Protein 9.0 g/dL (6.0-8.3) H 07/06/16 19:21 Globulin 5.3 g/dL (2.4-3.5) H 07/06/16 19:21 Albumin/Globulin Ratio 0.7 (1.1-2.2) L 07/06/16 19:21 Urine Bilirubin Small (Negative) H 07/07/16 05:40 Diabetes panel 07/07/16 Range/Units 05:02 Sodium 136 (136-145) mEq/L Potassium 4.9 H (3.5-4.5) mEq/L Chloride 106 (98-109) mEq/L Carbon Dioxide 18 L (19-29) mEq/L BUN 22 (8-26) mg/dL Creatinine 1.22 (0.72-1.25) mg/dL Glucose 90 (70-99) mg/dL Calcium 8.1 L D (8.6-10.8) mg/dL Calcium panel 07/07/16 07/07/16 Range/Units 05:02 05:07 Calcium 8.1 L D (8.6-10.8) mg/dL Phosphorus 4.0 (2.3-4.7) mg/dL Pituitary panel 07/07/16 Range/Units 05:02 Sodium 136 (136-145) mEq/L Potassium 4.9 H (3.5-4.5) mEq/L Chloride 106 (98-109) mEq/L Carbon Dioxide 18 L (19-29) mEq/L BUN 22 (8-26) mg/dL Creatinine 1.22 (0.72-1.25) mg/dL Glucose 90 (70-99) mg/dL Calcium 8.1 L D (8.6-10.8) mg/dL Adrenal panel 07/07/16 Range/Units 05:02 Sodium 136 (136-145) mEq/L Potassium 4.9 H (3.5-4.5) mEq/L Chloride 106 (98-109) mEq/L Carbon Dioxide 18 L (19-29) mEq/L BUN 22 (8-26) mg/dL Creatinine 1.22 (0.72-1.25) mg/dL Glucose 90 (70-99) mg/dL Calcium 8.1 L D (8.6-10.8) mg/dL All other labs normal. - Imaging CT scan - abdomen: report reviewed CT scan - pelvis: report reviewed Additional studies: Abdomen/Pelvis CT 07/06/16 19:39 IMPRESSION: 1. Multiple loops of fluid-filled nondilated small bowel with mild small bowel wall thickening throughout the pelvis and right lower quadrant with surrounding mesenteric stranding as well as a small amount of simple free fluid. No definite obstructive process is identified. Findings may reflect a severe infectious small bowel enteritis with early ischemic enteritis not entirely excluded. The appendix is not definitively visualized. Results were called by Dr. Humberto Andrade MD to Duane Bhakta on 07/06/2016 at 20:54. D/ / Humberto Andrade MD / Humberto Andrade MD Interpreting Provider: Humberto Andrade MD Chest X-Ray 07/07/16 02:42 IMPRESSION: Mild perihilar edema with bibasilar atelectasis. D/ / 07/07/2016 07:03:49 Nitesh López MD / [facility] Interpreting Provider: Nitesh López MD Consult Discharge Plan - Plan [facility]errals: [facility] [Primary Care Provider] - - Attending Attestation I examined this patient and my medical decision-making was reviewed with the EMBEDDED LINUX ENGINEER/PA/Advanced Practice Nurse/Resident Physician. I agree with the documented findings, disposition and treatment plan as described except to the extent set forth below.
[2016-07-07] MEDS ORDERED: Acetaminophen IV 500 MG/50 ML INFUS..BTL IVPB ONE (23:57)
[2016-07-08] MEDS: *HR* HYDROmorphone (PF) 1 MG/ML SYRINGE IVP PRN ×4 (01:27→20:13)
[2016-07-08] MEDS: Ipratropium 1 PUFF INHALER IH SCH ×3 (02:06→16:22)
[2016-07-08 03:27] LABS: Basophils # 0.1 K/mcL (0.0-0.2); Basophils % 0.3 %; Hematocrit 34.1 % (37.5-50.1); Immature Granulocytes % 0.8 % (0-4); Lymphocytes # 1.3 K/mcL (0.6-4.6); Lymphocytes % 6.2 %; Mean Corpuscular HGB Conc 32.3 g/dL (31.6-35.5); Mean Corpuscular Hemoglobin 25.7 pg (28.0-33.3); Mean Corpuscular Volume 79.7 fL (83.0-100.0); Mean Platelet Volume 10.3 fL (9.4-12.4); Monocytes # 0.9 K/mcL (0.0-1.3); Monocytes % 4.7 %; Neutrophils # 17.7 K/mcL (1.6-8.9); Platelet Count 283 K/mcL (140-400); Red Blood Count 4.28 M/mcL (4.19-5.50); Red Cell Distribution Width 17.5 % (11.5-14.5)
[2016-07-08 03:36] LABS: BUN/Creatinine Ratio 24 (6-26); Blood Urea Nitrogen 19 mg/dL (8-26); Calcium 8.6 mg/dL (8.6-10.8); Carbon Dioxide 19 mEq/L (19-29); Chloride 107 mEq/L (98-109); Glucose 89 mg/dL (70-99); Magnesium 1.9 mg/dL (1.6-2.6); Osmolality,Calculated 286 (280-300); Phosphorous 2.9 mg/dL (2.3-4.7); Potassium 4.2 mEq/L (3.5-4.5); Sodium 137 mEq/L (136-145); eGFR For African Americans > 60 (> 60); eGFR For Non-African Americans > 60 (> 60)
[2016-07-08] MEDS: *HR* Enoxaparin 40 MG/0.4 ML SYRINGE SQ SCH (06:08)
--- NOTE | 2016-07-08 07:47 | Internal Med Progress Note ---
Date of Encounter: 07/08/16 Time of Encounter: 07:30 - Assessment and plan (1) Severe sepsis Current Visit: Yes Status: Acute Assessment and plan: source is intraabdominal process (enteritis, suspected SBO, r/o mesenteric ischemia). 07/07 am: CT abdomen/pelvis showed multiple loops of fluid-filled, non dilated small bowel, bowel wall thickening with surrounding fat stranding and free fluid. diffuse pericholecystic, pernephritic, pericystic stranding. 07/07 pm: KUB showed malpositioned NGT, multiple air-filled mildly distended loops of large and small bowel in the mid abdomen. blood culture negative so far. Appreciate surgical input. sepsis is slowly responding to medical management ( lactic acid came down to 1.3 from 4.3 on admission. temp curve is trending down 101.4 -> 100.1, WBC trend up but now is going down to 20.1). Continue empiric antiobiotics with ertapenem, NGT with LIWS, IVF, NPO. (2) Enteritis Current Visit: Yes Status: Acute Assessment and plan: plan as above. (3) Small bowel obstruction Current Visit: Yes Status: Suspected Assessment and plan: KUB revealed worsening of abdominal distenstion. Patient with significant history of multiple episodes of SBO. repeat KUB this morning. surgery team is following. (4) Acute respiratory failure with hypoxia Current Visit: No Status: Acute Assessment and plan: secondary to sepsis and abdominal distension. not on oxygen at home. he has COPD. Continue oxygen supplementation and albuterol/atrovent inhal. (5) COPD (chronic obstructive pulmonary disease) Current Visit: No Status: Acute Assessment and plan: plan as above. Qualifiers: COPD type: unspecified COPD Qualified Code(s): J44.9 - Chronic obstructive pulmonary disease, unspecified (6) Hyperkalemia Current Visit: Yes Status: Acute Assessment and plan: resolved. secondary to sepsis. (7) Anemia Current Visit: Yes Status: Acute Assessment and plan: Patient with episode of severe acute blood anemia from PUD in October 2014 that required transfusion of 14 units of PRBC. Hb is 11.1. will continue to monitor. no signs of external bleeding. check iron , ferritin, b12 and folate levels. Qualifiers: Anemia type: unspecified type Qualified Code(s): D64.9 - Anemia, unspecified (8) Tobacco abuse Current Visit: No Status: Chronic Assessment and plan: nicotine patch. counseled to quit done. (9) Hypomagnesemia Current Visit: Yes Status: Acute Assessment and plan: corrected. (10) Frequent PVCs Current Visit: Yes Status: Acute Assessment and plan: Developed frequent PVC overnight. HR in the high 100s. check EKG and echocardiogram. given NPO, I will start low dose of IV metoprolol tid. K and Mg are adequate. - Subjective Interval history: NGT was re-positioned overnight and it has drained 410 ml of a greenish secretion. Patient developed frequent PVCs overnight. HR 106. temp of 100.1 F. Abdominal pain is the same. - Constitutional Vitals: Temp Pulse Resp BP Pulse Ox 99.1 F 106 22 116/73 95 07/08/16 05:01 07/08/16 05:01 07/08/16 05:01 07/08/16 05:01 07/08/16 05:01 General appearance: Present: cooperative, A&O X 3, pleasant, no acute distress, answers questions appropriately - Eye Eye exam: Present: PERRL, sclera anicteric - ENT ENT exam: Present: mucous membranes dry Additional comments: NGT in place - Neck Neck exam general surgery: Present: supple, trachea midline. Absent: lymphadenopathy - Respiratory Respiratory exam: Present: decreased breath sounds (at right lung base) - Cardiovascular Cardiovascular exam: Present: tachycardia. Absent: systolic murmur - GI/Abdominal GI/Abdominal exam: Present: distended, hypoactive bowel sounds (a few timpanic sounds), soft, tenderness (mild diffuse tenderness). Absent: firm, guarding - Additional comments: forrest in place - Extremities Exam Extremities exam: Present: radial pulses palpable and symetrical. Absent: pedal edema, tenderness - Back Exam Back exam: Absent: CVA tenderness (L), CVA tenderness (R) - Neurological Exam Neurological exam: Present: alert, oriented X3, no focal deficits. Absent: facial droop, speech deficit - Skin Skin exam: Absent: rash Internal Medicine: Result - Labs CBC & Chem 7: 07/08/16 03:16 07/08/16 03:16 Labs: Short CBC 07/08/16 Range/Units 03:16 WBC 20.1 H (4.3-11.1) K/mcL Hgb 11.0 L (12.9-16.9) g/dL Hct 34.1 L (37.5-50.1) % Plt Count 283 (140-400) K/mcL Neutrophils # 17.7 H (1.6-8.9) K/mcL BMP 07/08/16 03:16 Sodium 137 Potassium 4.2 Chloride 107 Carbon Dioxide 19 BUN 19 Creatinine 0.79 Glucose 89 Calcium 8.6 - ABG Interpretation ABG results: ABG ABG pH 7.38 pH Units (7.32-7.45) 07/06/16 20:33 ABG pCO2 35 mmHg (35-45) 07/06/16 20:33 ABG pO2 67 mmHg (85-104) L 07/06/16 20:33 ABG O2 Saturation 93 % (95-98) L 07/06/16 20:33 PT/INR, D-dimer PT 13.6 Seconds (9.4-12.1) H 07/06/16 19:21 - Impressions Impressions Chest X-Ray 07/07/16 02:42 IMPRESSION: Mild perihilar edema with bibasilar atelectasis. D/ / 07/07/2016 07:03:49 Nitesh L[facility]pez MD [facility] Interpreting Provider: Nitesh López MD X-Ray 07/07/16 18:44 IMPRESSION: 1. Malpositioned enteric tube coiled in the distal esophagus. This should be removed and replaced and a repeat imaging is recommended to verify positioning. 2. No multiple air-filled mildly distended loops of large and small bowel in the mid abdomen concerning for developing obstruction. The findings were sent to the Radiology Results Communication [facility] at 9:07 pm on 07/07/2016to be communicated to a licensed caregiver. D/ / 07/07/2016 21:15:06 Gigi Joe MD / jennifer Interpreting Provider: Gigi Joe MD Consult Discharge Plan - Plan [facility]errals: [facility] [Primary Care Provider] -
[2016-07-08] MEDS: *HR* Metoprolol 5 MG/5 ML VIAL IVP SCH ×2 (09:36→16:49)
[2016-07-08] MEDS: Ertapenem 1,000 MG in 0.9 % Sodium Chloride Mini Bag 100 ML IVPB SCH (09:37)
[2016-07-08] MEDS: 0.9 % Sodium Chloride 1,000 ML IVC SCH (09:39)
[2016-07-08] MEDS: Nicotine 21 MG PATCH.TD24 TD SCH (09:40)
--- NOTE | 2016-07-08 09:57 | General Surgery Progress Note ---
Date of Encounter: 07/08/16 Time of Encounter: 09:30 - Assessment and Plan (1) Enteritis Current Visit: Yes Status: Acute Continue with conservative measures at this time: NPO with NG tube to LIWS IV fluids IV antibiotics- Ertapenem Supportive care/pain control Serial abdominal exams Repeat CT scan today with oral contrast via NG tube Repeat labs in the am Surgery will continue to follow and assess progress- no urgent surgical intervention indicated at this time. Subjective Patient reports: feels better, still having pain, pain is less, no flatus, no bowel movement, fever (Tmax 100.1) Objective Vital Signs - Last 8 Hours Temp Pulse Resp BP Pulse Ox 07/08/16 07:20 97.9 F 113 12 139/82 95 07/08/16 05:01 99.1 F 106 22 116/73 95 07/08/16 02:06 19 93 L Intake and Output 07/07/16 07/08/16 07/08/16 23:59 07:59 15:59 Intake Total 1000 / 1000 50 / 50 0 / 0 Output Total 475 / 475 1050 / 1050 150 / 150 Balance 525 / 525 -1000 / -1000 -150 / -150 Intake: IV Fluids 1000 / 1000 50 / 50 0.9 % Sodium Chloride 1, 1000 / 1000 000 ML @ 125 mls/hr IVC . Q8H [facility] Rx#:[id number] Ofirmev 500 mg In 50 ml @ 50 / 50 200 mls/hr IVPB ONCE ONE Rx#:[id number] Oral 0 / 0 Output: Urine 0 / 0 Gastric Tube Lavage 240 / 240 Amount Left Nare 240 / 240 Estimated Blood Loss 250 / 250 Catheter 475 / 475 150 / 150 150 / 150 Gastric Drainage 410 / 410 Other: Weight 88.451 kg 88.4 kg Blood Glucose* 83 78 Patient Weight 07/08/16 23:59 Weight 88.4 kg - General physical appearance well developed, well nourished, moderate pain, chronically ill - Eyes normal ocular movement - ENT dry mucosa, atraumatic, normocephalic - Neck Neck exam: trachea midline - Respiratory normal respiratory effort, clear to auscultation, other (productive cough ( clear sputum), diminished bibasilar bases) - Cardiovascular Cardiovascular exam: Present: tachycardia - Abdomen Abdomen: Present: soft, distended, tender, wound (NG tube to LIWS (400ml of drainage over the past 24 hours)) Abdominal Tenderness: RLQ, LLQ, suprapubic - Genitourinary other (forrest catheter to SD with clear, yellow urine (350ml since midnight)) - Neurologic CN 2-12 grossly intact - Psychiatric oriented to time, oriented to person, oriented to place, speech is normal, memory intact - Labs 07/08/16 03:16 07/08/16 03:16 Diabetes panel 07/08/16 Range/Units 03:16 Sodium 137 (136-145) mEq/L Potassium 4.2 (3.5-4.5) mEq/L Chloride 107 (98-109) mEq/L Carbon Dioxide 19 (19-29) mEq/L BUN 19 (8-26) mg/dL Creatinine 0.79 (0.72-1.25) mg/dL Glucose 89 (70-99) mg/dL Calcium 8.6 (8.6-10.8) mg/dL Calcium panel 07/08/16 Range/Units 03:16 Calcium 8.6 (8.6-10.8) mg/dL Phosphorus 2.9 (2.3-4.7) mg/dL Pituitary panel 07/08/16 Range/Units 03:16 Sodium 137 (136-145) mEq/L Potassium 4.2 (3.5-4.5) mEq/L Chloride 107 (98-109) mEq/L Carbon Dioxide 19 (19-29) mEq/L BUN 19 (8-26) mg/dL Creatinine 0.79 (0.72-1.25) mg/dL Glucose 89 (70-99) mg/dL Calcium 8.6 (8.6-10.8) mg/dL Adrenal panel 07/08/16 Range/Units 03:16 Sodium 137 (136-145) mEq/L Potassium 4.2 (3.5-4.5) mEq/L Chloride 107 (98-109) mEq/L Carbon Dioxide 19 (19-29) mEq/L BUN 19 (8-26) mg/dL Creatinine 0.79 (0.72-1.25) mg/dL Glucose 89 (70-99) mg/dL Calcium 8.6 (8.6-10.8) mg/dL Consult Discharge Plan - Plan Referrals: [facility] [Primary Care Provider] - - Attending Attestation I examined this patient and my medical decision-making was reviewed with the DOUBLE BACK OPERATOR/PA/Advanced Practice Nurse/Resident Physician. I agree with the documented findings, disposition and treatment plan as described except to the extent set forth below.
[2016-07-08] MEDS: *HR* Morphine 2 MG/ML SYRINGE IVP PRN ×2 (12:39→16:49)
[2016-07-08 13:22] LABS: Iron 6 mcg/dL (65-175)
[2016-07-08 13:45] LABS: Ferritin 110 ng/ml (22-275)
[2016-07-08 13:57] LABS: Folate 6.4 ng/mL (7.0-31.4)
[2016-07-08] MEDS ORDERED: *HR* Metoprolol 5 MG/5 ML VIAL IVP ONE (21:50)
[2016-07-09] MEDS ORDERED: *HR* Metoprolol 5 MG/5 ML VIAL IVP SCH (00:24)
[2016-07-09] MEDS: 0.9 % Sodium Chloride 1,000 ML IVC SCH ×2 (00:34→09:50)
[2016-07-09] MEDS: 0.9 % Sodium Chloride 250 ML IVC ONE ×2 (01:35→09:51)
[2016-07-09] MEDS: *HR* Morphine 2 MG/ML SYRINGE IVP PRN (03:35)
[2016-07-09] MEDS: Ipratropium 1 PUFF INHALER IH SCH ×3 (04:32→15:50)
[2016-07-09 05:17] LABS: Basophils # 0.1 K/mcL (0.0-0.2); Basophils % 0.3 %; Eosinophils % 0.1 %; Hematocrit 34.8 % (37.5-50.1); Hemoglobin 11.2 g/dL (12.9-16.9); Immature Granulocytes % 1.8 % (0-4); Mean Corpuscular HGB Conc 32.2 g/dL (31.6-35.5); Mean Corpuscular Hemoglobin 25.5 pg (28.0-33.3); Mean Corpuscular Volume 79.1 fL (83.0-100.0); Mean Platelet Volume 10.5 fL (9.4-12.4); Monocytes % 5.3 %; Neutrophils # 16.6 K/mcL (1.6-8.9); Platelet Count 304 K/mcL (140-400); Red Cell Distribution Width 17.6 % (11.5-14.5); Segmented Neutrophils % 87.5 %
[2016-07-09 05:30] LABS: Alanine Aminotransferase 10 Units/L (0-55); Albumin/Globulin Ratio 0.5 (1.1-2.2); Alkaline Phosphatase 74 Units/L (38-126); Aspartate Amino Transferase 23 Units/L (5-34); BUN/Creatinine Ratio 26 (6-26); Bilirubin,Total 0.5 mg/dL (0.2-1.2); Blood Urea Nitrogen 18 mg/dL (8-26); Calcium 8.7 mg/dL (8.6-10.8); Carbon Dioxide 22 mEq/L (19-29); Chloride 106 mEq/L (98-109); Globulin 4.5 g/dL (2.4-3.5); Glucose 109 mg/dL (70-99); Magnesium 1.8 mg/dL (1.6-2.6); Osmolality,Calculated 292 (280-300); Potassium 4.3 mEq/L (3.5-4.5); Sodium 140 mEq/L (136-145); eGFR For African Americans > 60 (> 60); eGFR For Non-African Americans > 60 (> 60)
[2016-07-09 05:33] LABS: Albumin 2.3 g/dL (3.5-5.0); Total Protein 6.8 g/dL (6.0-8.3)
[2016-07-09 05:51] LABS: Thyroid Stimulating Hormone 1.872 mcIU/mL (0.350-4.840)
[2016-07-09] MEDS: *HR* Enoxaparin 40 MG/0.4 ML SYRINGE SQ SCH (06:03)
[2016-07-09] MEDS ORDERED: 0.9 % Sodium Chloride 1,000 ML IVC STA ×2 (07:44→09:18)
[2016-07-09] MEDS ORDERED: Magnesium Sulfate 1 GM in D5% in Water 100 ML IVPB STA (09:20)
--- NOTE | 2016-07-09 09:23 | ECHO - Doppler Report ---
Echocardiogram Name: Ankit Melendez Date of Study: 07/08/2016 Date: 1950 Ht: 75.0 in Medical Record#: [id number] Age: 66 Wt: 194.0 lb Gender: Male BSA: 2.17 Order #: [id number] Location: [facility] Room #: 2NE18 Reading Physician: Evan Mckeon MD, [facility] Equipment Man: Mally Suh Ordering Physician: Diana Boothe MD Primary Physician: [facility] Indications: frequent PVC Impressions: Technically suboptimal due to poor echocardiographic windows. Sinus tachycardia. Heart rate was in the 110's during this study. Normal left ventricular size and systolic function, estimated LVEF 60-65%. Not all myocardial segments were well visualized due to poor echo windows. Mild concentric left ventricular hypertrophy. Diastolic function was not adequately assessed on this study. Right ventricle was not well visualized. RV appears grossly normal in size and function on limited views. No evidence of valvular dysfunction, however, valvular function was not well assessed on this study. Unable to estimate RVSP due to lack of TR jet. Left Ventricular Wall Motion: Rest Echo Findings All wall segments showed normal motion. Findings: Study Quality * Technically suboptimal due to poor echocardiographic windows. ECG Findings * Sinus tachycardia. Heart rate was mainly in the 110's during this study. Left Ventricle * Normal left ventricular size and systolic function, estimated LVEF 60-65%. Not all myocardial segments were well visualized due to poor echo windows. * Mild concentric left ventricular hypertrophy. * Diastolic function was not adequately assessed on this study. Right Ventricle * Right ventricle was not well visualized. RV appears grossly normal in size and function on limited views. Left Atrium * Left atrium is not well visualized. Right Atrium * Right atrium is not well visualized. Aorta * Normally sized aortic root. Pericardium * There is a trivial pericardial effusion present. IVC * The IVC is not well evaluated. Aortic Valve * Trileaflet aortic valve. * Valvular function was not adequately assessed. Mitral Valve * Normal mitral valve structure. * Valvular function was not adequately assessed. Tricuspid Valve * Normal tricuspid valve structure. * Normal tricuspid valve function. * Unable to estimate RVSP due to lack of TR jet. Pulmonic Valve * Normal pulmonic valve structure. * Normal pulmonic valve function. History Hypertension History of Smoking Years 40 Packs 1 12/26/2014 a Previous Echo was performed. Measurements: BP: 123/ 78 2D Normal Values RVIDd: 3.70 cm IVSd: 1.20 cm 0.6 - 1.0 cm LVIDd: 5.00 cm 3.7 - 5.6 cm LVPWd: 1.30 cm 0.6 - 1.1 cm LVIDs: 3.40 cm 1.5 - 3.6 cm AO: 3.20 cm < 4.0 cm %FS: 32.00 cm >25 % Updated by Evan Mckeon MD, [facility] on 07/09/2016 9:17:45 AM electronically signed on 07/09/2016 9:19:29 AM with status of Final Wall Motion Leonard: 1=Normal, 2=Hypokinesis, 3=Akinesis, 4=Dyskinesis, 5=Aneurysmal, 6=Hyperkinetic, X=Not Visualized (Blank)=Missing
--- NOTE | 2016-07-09 09:24 | Internal Med Progress Note ---
Date of Encounter: 07/09/16 Time of Encounter: 09:00 - Assessment and plan (1) Severe sepsis Current Visit: Yes Status: Acute Assessment and plan: source is intraabdominal process (enteritis, suspected SBO, r/o mesenteric ischemia). 07/07 am: CT abdomen/pelvis showed multiple loops of fluid-filled, non dilated small bowel, bowel wall thickening with surrounding fat stranding and free fluid. diffuse pericholecystic, pernephritic, pericystic stranding. 07/07 pm: KUB showed malpositioned NGT, multiple air-filled mildly distended loops of large and small bowel in the mid abdomen. 07/08: CTAP showed partial SBO. blood culture negative so far. Appreciate surgical input. stat 2L NS fluid bolus. repeat lactic acid. Continue empiric antiobiotics with ertapenem, NGT with LIWS, IVF, NPO. He is having significant secretion thru NGT. his clinical condition is remains serious, although sepsis has improved. WBC down at 19. temp curve down. (2) Small bowel obstruction Current Visit: Yes Status: Suspected Assessment and plan: 07/08: CTAP revealed partial SBO. plan as above. (3) Enteritis Current Visit: Yes Status: Acute Assessment and plan: plan as above. (4) Acute respiratory failure with hypoxia Current Visit: No Status: Acute Assessment and plan: secondary to sepsis source PNA/abdominal infection and abdominal distension. not on oxygen at home. he has COPD. 07/08: CTAP showed bibasal consolidations and pleural effusions. Requiring 4L NC. Continue oxygen supplementation and atrovent inhal. stop albuterol due to tachycardia. Check CXR (5) Frequent PVCs Current Visit: Yes Status: Acute Assessment and plan: Developed frequent PVC overnight. HR in the high 100s. EKG this morning showed sinus tachicardia HR 114, frequent PVC. 07/08: echocardiogram showed LVEF 60-65%, mild LVH, continue IV metoprolol tid. give 1 mg of Mg. (6) COPD (chronic obstructive pulmonary disease) Current Visit: No Status: Acute Assessment and plan: plan as above. Qualifiers: COPD type: unspecified COPD Qualified Code(s): J44.9 - Chronic obstructive pulmonary disease, unspecified (7) Hyperkalemia Current Visit: Yes Status: Acute Assessment and plan: resolved. secondary to sepsis. (8) Anemia Current Visit: Yes Status: Acute Assessment and plan: Patient with episode of severe acute blood anemia from PUD in October 2014 that required transfusion of 14 units of PRBC. ferritin is 110. b12 is 369. folate is 6.4. Hb is 11.2. start Iv folate. will continue to monitor. no signs of external bleeding. Qualifiers: Anemia type: unspecified type Qualified Code(s): D64.9 - Anemia, unspecified (9) Tobacco abuse Current Visit: No Status: Chronic Assessment and plan: nicotine patch. counseled to quit done. (10) Hypomagnesemia Current Visit: Yes Status: Acute Assessment and plan: corrected. - Subjective Interval history: NGT is draining dark brown secretions, stool-like. Patient had a liquid bowel movement this morning, stools are dark brown. His HR went up to 123 and received 500 ml of NS. per patient, his abdominal pain is slightly better. - Constitutional Vitals: Temp Pulse Resp BP Pulse Ox 98.2 F 121 15 146/91 94 L 07/09/16 06:49 07/09/16 06:49 07/09/16 06:49 07/09/16 06:49 07/09/16 06:49 General appearance: Present: cooperative, A&O X 3, pleasant, no acute distress, answers questions appropriately - Eye Eye exam: Present: PERRL, sclera anicteric - Neck Neck exam general surgery: Present: supple, trachea midline. Absent: lymphadenopathy - Respiratory Respiratory exam: Present: decreased breath sounds (at lung bases), rhonchi - Cardiovascular Cardiovascular exam: Present: tachycardia - GI/Abdominal GI/Abdominal exam: Present: distended, hypoactive bowel sounds, soft, tenderness (mild), no peritoneal signs - Additional comments: forrest catheter in place. - Extremities Exam Extremities exam: Absent: pedal edema - Back Exam Back exam: Absent: CVA tenderness (L), CVA tenderness (R) - Neurological Exam Neurological exam: Present: alert, oriented X3. Absent: facial droop, speech deficit - Skin Skin exam: Absent: cyanosis, rash, urticaria Internal Medicine: Result - Labs CBC & Chem 7: 07/09/16 04:24 07/09/16 04:24 Labs: Short CBC 07/09/16 Range/Units 04:24 WBC 19.0 H (4.3-11.1) K/mcL Hgb 11.2 L (12.9-16.9) g/dL Hct 34.8 L (37.5-50.1) % Plt Count 304 (140-400) K/mcL Neutrophils # 16.6 H (1.6-8.9) K/mcL BMP 07/09/16 04:24 Sodium 140 Potassium 4.3 Chloride 106 Carbon Dioxide 22 BUN 18 Creatinine 0.69 L Glucose 109 H Calcium 8.7 Liver Function 07/09/16 Range/Units 04:24 Total Bilirubin 0.5 (0.2-1.2) mg/dL AST 23 (5-34) Units/L ALT 10 (0-55) Units/L Alkaline Phosphatase 74 (38-126) Units/L Albumin 2.3 L D (3.5-5.0) g/dL - ABG Interpretation ABG results: ABG ABG pH 7.38 pH Units (7.32-7.45) 07/06/16 20:33 ABG pCO2 35 mmHg (35-45) 07/06/16 20:33 ABG pO2 67 mmHg (85-104) L 07/06/16 20:33 ABG O2 Saturation 93 % (95-98) L 07/06/16 20:33 PT/INR, D-dimer PT 13.6 Seconds (9.4-12.1) H 07/06/16 19:21 - Impressions Impressions KUB X-Ray 07/08/16 07:21 IMPRESSION: Proximal port of the nasogastric tube is at the GE junction. The tube needs to be advanced 3-5 cm. D/ / Serge Fisher MD / Serge Fisher MD Interpreting Provider: Serge Fisher MD Abdomen/Pelvis CT 07/08/16 13:30 IMPRESSION: 1. Dilated proximal small bowel, with gradual transition point in the right anterior abdomen (axial images 120-125), suggestive of a partial small bowel obstruction. No findings are seen such as bowel wall thickening or submucosal edema to specifically suggest ongoing enteritis. 2. Small amount of ascites, unchanged. 3. There is a 6 mm radiodensity adjacent to the biliary ampulla, favored to represent contrast within a tiny duodenum diverticulum. The biliary tree is decompressed. 4. Bibasilar airspace consolidation with small bilateral pleural effusions, concerning for pneumonia. D/ : / 07/08/2016 15:20:37 Ubaldo Jewell MD / Radha Schultz Interpreting Provider: Ubaldo Jewell MD Consult Discharge Plan - Plan [facility]errals: [facility] [Primary Care Provider] -
[2016-07-09] MEDS: *HR* Metoprolol 5 MG/5 ML VIAL IVP SCH ×3 (09:37→23:47)
[2016-07-09] MEDS: Nicotine 21 MG PATCH.TD24 TD SCH (09:43)
[2016-07-09] MEDS: *HR* HYDROmorphone (PF) 1 MG/ML SYRINGE IVP PRN ×3 (09:54→22:07)
[2016-07-09] MEDS: Ertapenem 1,000 MG in 0.9 % Sodium Chloride Mini Bag 100 ML IVPB SCH (10:16)
[2016-07-09] MEDS: Pantoprazole 40 MG VIAL IVP SCH ×2 (12:15→18:54)
[2016-07-09] MEDS: Folic Acid 1 MG in D5% in Water 50 ML IVPB SCH (12:55)
[2016-07-09 17:25] LABS: Basophils % 0.2 %; Eosinophils # 0.1 K/mcL (0.0-0.6); Eosinophils % 0.4 %; Hematocrit 31.8 % (37.5-50.1); Hemoglobin 10.6 g/dL (12.9-16.9); Immature Granulocytes % 1.1 % (0-4); Lymphocytes # 1.4 K/mcL (0.6-4.6); Lymphocytes % 7.2 %; Mean Corpuscular HGB Conc 33.3 g/dL (31.6-35.5); Mean Corpuscular Hemoglobin 25.9 pg (28.0-33.3); Mean Corpuscular Volume 77.8 fL (83.0-100.0); Mean Platelet Volume 10.1 fL (9.4-12.4); Monocytes # 1.2 K/mcL (0.0-1.3); Monocytes % 6.3 %; Neutrophils # 16.1 K/mcL (1.6-8.9); Platelet Count 310 K/mcL (140-400); Red Blood Count 4.09 M/mcL (4.19-5.50); Red Cell Distribution Width 17.5 % (11.5-14.5); Segmented Neutrophils % 84.8 %
[2016-07-09] MEDS ORDERED: Pantoprazole 40 MG VIAL IVP SCH (18:00)
--- NOTE | 2016-07-09 18:24 | General Surgery Progress Note ---
<Gonzalez Kline - Last Filed: 07/09/16 18:25> Date of Encounter: 07/09/16 Time of Encounter: 17:00 - Assessment and Plan (1) Enteritis Current Visit: Yes Status: Acute Continue with conservative measures at this time: NPO with NG tube to LIWS IV fluids IV antibiotics- Ertapenem Supportive care/pain control Serial abdominal exams Repeat CT scan today with oral contrast via NG tube Repeat labs in the am Surgery will continue to follow and assess progress (2) GI bleed Current Visit: No Status: Acute Concern for anemia 2/2 to GI bleed. Patient with episode of severe acute blood anemia from PUD in October 2014 that required transfusion of 14 units of PRBC. Hgb since admission 14.3>11>10.6 Patient stated on PPI Monitor H/H, transfuse if needed. Will re-evaluate in the AM. Qualifiers: GI bleed type/associated pathology: unspecified gastrointestinal hemorrhage type Qualified Code(s): K92.2 - Gastrointestinal hemorrhage, unspecified (3) Anemia Current Visit: Yes Status: Acute See above plan Qualifiers: Anemia type: iron deficiency Iron deficiency anemia type: unspecified iron deficiency Qualified Code(s): D50.9 - Iron deficiency anemia, unspecified Subjective Patient reports: no new complaints, feels better, still having pain, pain is less, no flatus, bowel movement, diarrhea, afebrile Objective Vital Signs - Last 8 Hours Temp Pulse Resp BP Pulse Ox 07/09/16 16:50 116 144/97 07/09/16 15:51 18 98 07/09/16 15:18 99.3 F 100 23 114/62 92 L 07/09/16 10:59 97.9 F 100 14 142/97 93 L Intake and Output 07/09/16 07/09/16 07/09/16 07:59 15:59 23:59 Intake Total 450 / 450 2250 / 2250 Output Total 1400 / 1400 675 / 675 200 / 200 Balance -950 / -950 1575 / 1575 -200 / -200 Intake: IV Fluids 450 / 450 2250 / 2250 0.9 % Sodium Chloride 1, 450 / 450 2000 / 2000 000 ML @ 3750 mls/hr IVC .Q16M [facility] Rx#:[id number] INVanz 1,000 MG In 0.9 % 100 / 100 Sodium Chloride (Mini-Bag +) 100 ML @ 100 mls/hr IVPB DAILY [facility] Rx#: [id number] Folvite 1 MG In Dextrose 50 / 50 5% 50 ML @ 50 mls/hr IVPB DAILY [facility] Rx#:[id number] Magnesium Sulfate 1 GM In 100 / 100 Dextrose 5% 100 ML @ 100 mls/hr IVPB ONCE [facility] Rx# :[id number] Oral 0 / 0 Output: Catheter 650 / 650 375 / 375 200 / 200 Gastric Drainage 750 / 750 300 / 300 Other: Meal NPO for dinner Stool Size Small Stool Consistency liquid Stool Color Brown # Bowel Movements 1 1 Weight 88.2 kg Blood Glucose* 107 110 88 Patient Weight 07/09/16 23:59 Weight 88.2 kg - General physical appearance well developed, well nourished, moderate pain - Eyes normal ocular movement - ENT normal mucosa, atraumatic, normocephalic - Neck Neck exam: trachea midline - Respiratory normal respiratory effort crackles: bilateral - Cardiovascular Cardiovascular exam: Present: tachycardia - Abdomen Abdomen: Present: bowel sounds present (hypoactive), soft, tender Abdominal Tenderness: RLQ - Integumentary no rash, no growths - Neurologic CN 2-12 grossly intact - Psychiatric oriented to person, oriented to place, speech is normal, memory intact - Labs 07/09/16 17:19 07/09/16 04:24 Diabetes panel 07/09/16 Range/Units 04:24 Sodium 140 (136-145) mEq/L Potassium 4.3 (3.5-4.5) mEq/L Chloride 106 (98-109) mEq/L Carbon Dioxide 22 (19-29) mEq/L BUN 18 (8-26) mg/dL Creatinine 0.69 L (0.72-1.25) mg/dL Glucose 109 H (70-99) mg/dL Calcium 8.7 (8.6-10.8) mg/dL AST 23 (5-34) Units/L ALT 10 (0-55) Units/L Alkaline Phosphatase 74 (38-126) Units/L Albumin 2.3 L D (3.5-5.0) g/dL Thyroid panel 07/09/16 Range/Units 04:24 TSH 1.872 (0.350-4.840) mcIU/mL Calcium panel 07/09/16 Range/Units 04:24 Calcium 8.7 (8.6-10.8) mg/dL Albumin 2.3 L D (3.5-5.0) g/dL Pituitary panel 07/09/16 Range/Units 04:24 Sodium 140 (136-145) mEq/L Potassium 4.3 (3.5-4.5) mEq/L Chloride 106 (98-109) mEq/L Carbon Dioxide 22 (19-29) mEq/L BUN 18 (8-26) mg/dL Creatinine 0.69 L (0.72-1.25) mg/dL Glucose 109 H (70-99) mg/dL Calcium 8.7 (8.6-10.8) mg/dL TSH 1.872 (0.350-4.840) mcIU/mL Adrenal panel 07/09/16 Range/Units 04:24 Sodium 140 (136-145) mEq/L Potassium 4.3 (3.5-4.5) mEq/L Chloride 106 (98-109) mEq/L Carbon Dioxide 22 (19-29) mEq/L BUN 18 (8-26) mg/dL Creatinine 0.69 L (0.72-1.25) mg/dL Glucose 109 H (70-99) mg/dL Calcium 8.7 (8.6-10.8) mg/dL Total Bilirubin 0.5 (0.2-1.2) mg/dL AST 23 (5-34) Units/L ALT 10 (0-55) Units/L Alkaline Phosphatase 74 (38-126) Units/L Albumin 2.3 L D (3.5-5.0) g/dL Consult Discharge Plan - Plan [facility]errals: [facility] [Primary Care Provider[facility] - <Toya Vazquez - Last Filed: 07/09/16 20:27> Date of Encounter: 07/09/16 - Assessment and Plan (1) Anemia Current Visit: Yes Status: Acute Qualifiers: Anemia type: iron deficiency Iron deficiency anemia type: unspecified iron deficiency Qualified Code(s): D50.9 - Iron deficiency anemia, unspecified (2) Enteritis Current Visit: Yes Status: Acute CT scan yday no bowel sounds despite small liquid bm, continue conservative therapy prn pain control iv abx serial abdominal exams wbc decreased some today, trend OOB to chair consult PT/OT ok ice chips and popcicles Subjective Narrative: patient has no nausea he states he had a small liquid bm earlier today but flatus wants out of bed but is told he cant Objective Vital Signs - Last 8 Hours Temp Pulse Resp BP Pulse Ox 07/09/16 16:50 116 144/97 07/09/16 15:51 18 98 07/09/16 15:18 99.3 F 100 23 114/62 92 L Intake and Output 07/09/16 07/09/16 07/09/16 07:59 15:59 23:59 Intake Total 450 / 450 2250 / 2250 Output Total 1400 / 1400 675 / 675 200 / 200 Balance -950 / -950 1575 / 1575 -200 / -200 Intake: IV Fluids 450 / 450 2250 / 2250 0.9 % Sodium Chloride 1, 450 / 450 2000 / 2000 000 ML @ 3750 mls/hr IVC .Q16M [facility] Rx#:[id number] INVanz 1,000 MG In 0.9 % 100 / 100 Sodium Chloride (Mini-Bag +) 100 ML @ 100 mls/hr IVPB DAILY [facility] Rx#: [id number] Folvite 1 MG In Dextrose 50 / 50 5% 50 ML @ 50 mls/hr IVPB DAILY [facility] Rx#:[id number] Magnesium Sulfate 1 GM In 100 / 100 Dextrose 5% 100 ML @ 100 mls/hr IVPB ONCE [facility] Rx# :[id number] Oral 0 / 0 Output: Catheter 650 / 650 375 / 375 200 / 200 Gastric Drainage 750 / 750 300 / 300 Other: Meal NPO for dinner Stool Size Small Stool Consistency liquid Stool Color Brown # Bowel Movements 1 1 Weight 88.2 kg Blood Glucose* 107 110 88 Patient Weight 07/09/16 23:59 Weight 88.2 kg - General physical appearance well developed, well nourished, moderate pain - Eyes PERRL, normal ocular movement - ENT normal mucosa, normocephalic - Neck Neck exam: trachea midline - Respiratory normal expansion, clear to auscultation - Cardiovascular Cardiovascular exam: Present: RRR - Abdomen Abdomen: Present: bowel sounds present, soft, distended, tender - Genitourinary other (forrest with dark orange urine) - Integumentary no growths - Neurologic CN 2-12 grossly intact - Musculoskeletal normal posture - Psychiatric oriented to time, oriented to person, memory intact - Labs 07/09/16 17:19 07/09/16 04:24 Diabetes panel 07/09/16 Range/Units 04:24 Sodium 140 (136-145) mEq/L Potassium 4.3 (3.5-4.5) mEq/L Chloride 106 (98-109) mEq/L Carbon Dioxide 22 (19-29) mEq/L BUN 18 (8-26) mg/dL Creatinine 0.69 L (0.72-1.25) mg/dL Glucose 109 H (70-99) mg/dL Calcium 8.7 (8.6-10.8) mg/dL AST 23 (5-34) Units/L ALT 10 (0-55) Units/L Alkaline Phosphatase 74 (38-126) Units/L Albumin 2.3 L D (3.5-5.0) g/dL Thyroid panel 07/09/16 Range/Units 04:24 TSH 1.872 (0.350-4.840) mcIU/mL Calcium panel 07/09/16 Range/Units 04:24 Calcium 8.7 (8.6-10.8) mg/dL Albumin 2.3 L D (3.5-5.0) g/dL Pituitary panel 07/09/16 Range/Units 04:24 Sodium 140 (136-145) mEq/L Potassium 4.3 (3.5-4.5) mEq/L Chloride 106 (98-109) mEq/L Carbon Dioxide 22 (19-29) mEq/L BUN 18 (8-26) mg/dL Creatinine 0.69 L (0.72-1.25) mg/dL Glucose 109 H (70-99) mg/dL Calcium 8.7 (8.6-10.8) mg/dL TSH 1.872 (0.350-4.840) mcIU/mL Adrenal panel 07/09/16 Range/Units 04:24 Sodium 140 (136-145) mEq/L Potassium 4.3 (3.5-4.5) mEq/L Chloride 106 (98-109) mEq/L Carbon Dioxide 22 (19-29) mEq/L BUN 18 (8-26) mg/dL Creatinine 0.69 L (0.72-1.25) mg/dL Glucose 109 H (70-99) mg/dL Calcium 8.7 (8.6-10.8) mg/dL Total Bilirubin 0.5 (0.2-1.2) mg/dL AST 23 (5-34) Units/L ALT 10 (0-55) Units/L Alkaline Phosphatase 74 (38-126) Units/L Albumin 2.3 L D (3.5-5.0) g/dL - Attending Attestation I examined this patient and my medical decision-making was reviewed with the BIOINFORMATICS ENGINEER/PA/Advanced Practice Nurse/Resident Physician. I agree with the documented findings, disposition and treatment plan as described except to the extent set forth below.
[2016-07-09] MEDS ORDERED: 0.9 % Sodium Chloride 1,000 ML IVC SCH (20:00)
[2016-07-10] MEDS: Ipratropium 1 PUFF INHALER IH SCH (01:27)
[2016-07-10] MEDS ORDERED: Albuterol 2.5 MG/3 ML NEBULIZER IH PRN (01:55)
[2016-07-10] MEDS ORDERED: Furosemide 20 MG/2 ML VIAL IVP ONE ×2 (02:19→13:40)
[2016-07-10] MEDS: Furosemide 20 MG/2 ML VIAL IVP STA ×2 (02:20→03:21)
[2016-07-10] MEDS: Ipratropium/Albuterol Neb 3 ML IH SCH ×4 (04:34→22:39)
[2016-07-10 05:58] LABS: Basophils # 0.1 K/mcL (0.0-0.2); Basophils % 0.3 %; Eosinophils # 0.1 K/mcL (0.0-0.6); Eosinophils % 0.3 %; Hematocrit 31.8 % (37.5-50.1); Hemoglobin 10.4 g/dL (12.9-16.9); Immature Granulocytes % 0.7 % (0-4); Lymphocytes # 1.2 K/mcL (0.6-4.6); Lymphocytes % 6.8 %; Mean Corpuscular HGB Conc 32.7 g/dL (31.6-35.5); Mean Corpuscular Hemoglobin 25.7 pg (28.0-33.3); Mean Corpuscular Volume 78.7 fL (83.0-100.0); Mean Platelet Volume 10.2 fL (9.4-12.4); Monocytes # 1.2 K/mcL (0.0-1.3); Monocytes % 6.7 %; Neutrophils # 15.1 K/mcL (1.6-8.9); Platelet Count 327 K/mcL (140-400); Red Blood Count 4.04 M/mcL (4.19-5.50); Red Cell Distribution Width 17.6 % (11.5-14.5); Segmented Neutrophils % 85.2 %
[2016-07-10] MEDS: *HR* Enoxaparin 40 MG/0.4 ML SYRINGE SQ SCH (06:01)
[2016-07-10] MEDS: Pantoprazole 40 MG VIAL IVP SCH ×2 (06:01→17:50)
[2016-07-10 06:09] LABS: INR 1.2; Prothrombin Time 13.4 Seconds (9.4-12.1)
[2016-07-10 06:15] LABS: VBG HCO3 27.3 mEq/L (21-27); VBG PH 7.41 pH Units (7.32-7.42)
[2016-07-10 06:19] LABS: Alanine Aminotransferase 20 Units/L (0-55); Albumin 2.3 g/dL (3.5-5.0); Albumin/Globulin Ratio 0.5 (1.1-2.2); Alkaline Phosphatase 74 Units/L (38-126); Aspartate Amino Transferase 39 Units/L (5-34); BUN/Creatinine Ratio 25 (6-26); Bilirubin,Total 0.6 mg/dL (0.2-1.2); Blood Urea Nitrogen 15 mg/dL (8-26); Calcium 8.6 mg/dL (8.6-10.8); Carbon Dioxide 22 mEq/L (19-29); Chloride 107 mEq/L (98-109); Globulin 4.4 g/dL (2.4-3.5); Glucose 99 mg/dL (70-99); Magnesium 1.4 mg/dL (1.6-2.6); Osmolality,Calculated 293 (280-300); Potassium 3.5 mEq/L (3.5-4.5); Sodium 141 mEq/L (136-145); Total Protein 6.7 g/dL (6.0-8.3); eGFR For African Americans > 60 (> 60); eGFR For Non-African Americans > 60 (> 60)
[2016-07-10] MEDS: *HR* HYDROmorphone (PF) 1 MG/ML SYRINGE IVP PRN ×3 (06:39→20:10)
[2016-07-10] MEDS ORDERED: Magnesium Sulfate 1 GM in D5% in Water 100 ML IVPB ONE (08:15)
--- NOTE | 2016-07-10 08:40 | Internal Med Progress Note ---
Date of Encounter: 07/10/16 Time of Encounter: 07:45 - Assessment and plan (1) Severe sepsis Current Visit: Yes Status: Acute Assessment and plan: source is intraabdominal process (enteritis, suspected SBO, r/o mesenteric ischemia). 07/07 am: CT abdomen/pelvis showed multiple loops of fluid-filled, non dilated small bowel, bowel wall thickening with surrounding fat stranding and free fluid. diffuse pericholecystic, pernephritic, pericystic stranding. 07/07 pm: KUB showed malpositioned NGT, multiple air-filled mildly distended loops of large and small bowel in the mid abdomen. 07/08: CTAP showed partial SBO. blood culture negative so far. Slowly clinically improving. holding IVF due to hypoxia and pulmonary edema. Appreciate surgical input. Continue empiric antiobiotics with ertapenem, NGT with LIWS, and NPO with icechips and popsicles. (2) Enteritis Current Visit: Yes Status: Acute Assessment and plan: plan as above. (3) Acute respiratory failure with hypoxia Current Visit: No Status: Acute Assessment and plan: secondary to pulmonary edema from fluid resuscitation, sepsis and abdominal distension. not on oxygen at home. he has COPD. 07/08: CTAP showed bibasal consolidations and pleural effusions. 07/08: echocardiogram showed LVEF 60%, mild LVH. received IV furosemide overnight. On high oxygen requirements at 8L high flow nasal cannula. Continue oxygen supplementation, atrovent inhal. repeat CXR (4) Pulmonary edema Current Visit: Yes Status: Acute Assessment and plan: plan as above. Qualifiers: Chronicity: acute Qualified Code(s): J81.0 - Acute pulmonary edema (5) GI bleed Current Visit: No Status: Acute Assessment and plan: suspected GI bleed due to black NGT secretion. Patient with episode of severe acute blood anemia from PUD in October 2014 that required transfusion of 14 units of PRBC. On IV PPI BID. 07/10: NGT secretions are dark green. no signs of active bleeding. continue IV PPI. Qualifiers: GI bleed type/associated pathology: unspecified gastrointestinal hemorrhage type Qualified Code(s): K92.2 - Gastrointestinal hemorrhage, unspecified (6) Anemia Current Visit: Yes Status: Acute Assessment and plan: ferritin is 110. b12 is 369. folate is 6.4. Hb is trending down to 10.4 from 14 on admission. this could be dilutional after fluid resuscitation +/- upper GI bleed and folate deficiency. continue IV PPI, Iv folate. will continue to monitor. Qualifiers: Anemia type: iron deficiency Iron deficiency anemia type: unspecified iron deficiency Qualified Code(s): D50.9 - Iron deficiency anemia, unspecified (7) Small bowel obstruction Current Visit: Yes Status: Suspected Assessment and plan: 07/08: CTAP revealed partial SBO. plan as above. (8) Frequent PVCs Current Visit: Yes Status: Acute Assessment and plan: Developed frequent PVC overnight. HR in the high 100s. EKG this morning showed sinus tachicardia HR 114, frequent PVC. 07/08: echocardiogram showed LVEF 60-65%, mild LVH, continue IV metoprolol tid. give 1 mg of Mg. (9) COPD (chronic obstructive pulmonary disease) Current Visit: No Status: Acute Assessment and plan: plan as above. Qualifiers: COPD type: unspecified COPD Qualified Code(s): J44.9 - Chronic obstructive pulmonary disease, unspecified (10) Hyperkalemia Current Visit: Yes Status: Acute Assessment and plan: resolved. secondary to sepsis. (11) Hypomagnesemia Current Visit: Yes Status: Acute Assessment and plan: replete. (12) Tobacco abuse Current Visit: No Status: Chronic Assessment and plan: nicotine patch. counseled to quit done. - Subjective Interval history: NGT is draining greenish dark secretions. Patient desat overnight, received 20 mg IV furosemide and is now requiring 8L high flow nasal cannula. He feels better this morning, his abdominal pain only recurs when he coughs. - Constitutional Vitals: Temp Pulse Resp BP Pulse Ox 98.4 F 104 20 127/84 94 L 07/10/16 07:17 07/10/16 07:17 07/10/16 07:17 07/10/16 07:17 07/10/16 07:17 General appearance: Present: cooperative, A&O X 3, pleasant, no acute distress, answers questions appropriately - Eye Eye exam: Present: PERRL. Absent: sclera anicteric - ENT Additional comments: NGT in place draining a greenish dark secretion. - Neck Neck exam general surgery: Present: supple. Absent: lymphadenopathy - Respiratory Respiratory exam: Present: rales (bilateral), wheezes (diffuse at lung bases) - Cardiovascular Cardiovascular exam: Present: tachycardia - GI/Abdominal Additional comments: abdomen is soft, mild diffuse tenderness, distension has improved, hyperactive bowel sounds and no timpanic sounds. - Extremities Exam Extremities exam: Absent: pedal edema - Back Exam Back exam: Absent: CVA tenderness (L), CVA tenderness (R) - Neurological Exam Neurological exam: Present: alert, oriented X3. Absent: facial droop, speech deficit - Skin Skin exam: Present: erythema (face: forehead, malar area. ) Internal Medicine: Result - Labs CBC & Chem 7: 07/10/16 05:21 07/10/16 05:21 Labs: Short CBC 07/09/16 07/10/16 Range/Units 17:19 05:21 WBC 19.0 H 17.7 H (4.3-11.1) K/mcL Hgb 10.6 L 10.4 L (12.9-16.9) g/dL Hct 31.8 L 31.8 L (37.5-50.1) % Plt Count 310 327 (140-400) K/mcL Neutrophils # 16.1 H 15.1 H (1.6-8.9) K/mcL BMP 07/10/16 05:21 Sodium 141 Potassium 3.5 Chloride 107 Carbon Dioxide 22 BUN 15 Creatinine 0.60 L Glucose 99 Calcium 8.6 Liver Function 07/10/16 Range/Units 05:21 Total Bilirubin 0.6 (0.2-1.2) mg/dL AST 39 H (5-34) Units/L ALT 20 (0-55) Units/L Alkaline Phosphatase 74 (38-126) Units/L Albumin 2.3 L (3.5-5.0) g/dL - ABG Interpretation ABG results: ABG ABG pH 7.38 pH Units (7.32-7.45) 07/06/16 20:33 ABG pCO2 35 mmHg (35-45) 07/06/16 20:33 ABG pO2 67 mmHg (85-104) L 07/06/16 20:33 ABG O2 Saturation 93 % (95-98) L 07/06/16 20:33 PT/INR, D-dimer PT 13.4 Seconds (9.4-12.1) H 07/10/16 05:21 - Impressions Impressions Chest X-Ray 07/09/16 11:50 IMPRESSION: Bilateral perihilar airspace disease most compatible with developing pulmonary edema D/ / Hayder Ayala MD / Hayder Ayala MD Interpreting Provider: Hayder Ayala MD Consult Discharge Plan - Plan Referrals: [facility] [Primary Care Provider] -
[2016-07-10] MEDS: *HR* Metoprolol 5 MG/5 ML VIAL IVP SCH ×3 (09:33→23:46)
[2016-07-10] MEDS: Ertapenem 1,000 MG in 0.9 % Sodium Chloride Mini Bag 100 ML IVPB SCH (09:36)
[2016-07-10] MEDS: Folic Acid 1 MG in D5% in Water 50 ML IVPB SCH (09:38)
[2016-07-10] MEDS: Nicotine 21 MG PATCH.TD24 TD SCH (09:57)
[2016-07-10 13:11] LABS: ABG Base Excess 1.7 mEq/L (-2.0 to 3.0); ABG HCO3 25.7 mEQ/L (21-27); ABG Oxygen Saturation 90 % (95-98); ABG PCO2 37 mmHg (35-45); ABG PH 7.45 pH Units (7.32-7.45); ABG PO2 55 mmHg (85-104); ABG TCO2 26.8 mEq/L (20-26); Blood Gas Liter Flow 8 L/MIN
--- NOTE | 2016-07-10 15:01 | General Surgery Progress Note ---
Date of Encounter: 07/10/16 Time of Encounter: 12:20 - Assessment and Plan (1) Anemia Current Visit: Yes Status: Acute dilutional Qualifiers: Anemia type: other cause Other causes of anemia: other cause, not classified Qualified Code(s): D64.89 - Other specified anemias (2) Enteritis Current Visit: Yes Status: Acute no bowel sounds despite continue conservative therapy, less distended and less firm today prn pain control iv abx serial abdominal exams wbc continues to decreas, trend OOB to chair consult PT/OT ok ice chips and popcicles kub shows ngt not down far enough - advanced if hasnt opened up tomorrow recommend picc/tpn little sob, soft rhonchi - lasix 20 mg given x 1 (3) Leukocytosis Current Visit: Yes Status: Acute slowly trending down, continue abx and continue to monitor Qualifiers: Leukocytosis type: unspecified Qualified Code(s): D72.829 - Elevated white blood cell count, unspecified Subjective Patient reports: no new complaints, still having pain, pain is less, no flatus, no bowel movement Narrative: no flatus or bm feels better today and is in a better mood feels a little less distended got out of bed to chair last night Objective Vital Signs - Last 8 Hours Temp Pulse Resp BP Pulse Ox 07/10/16 11:10 97.7 F 101 22 141/90 88 L 07/10/16 10:36 14 92 L 07/10/16 07:17 98.4 F 104 20 127/84 94 L Intake and Output 07/09/16 07/10/16 07/10/16 23:59 07:59 15:59 Intake Total 238 / 238 499 / 499 250.2 / 250.2 Output Total 900 / 900 200 / 200 Balance -662 / -662 299 / 299 250.2 / 250.2 Intake: IV Fluids 499 / 499 250.2 / 250.2 0.9 % Sodium Chloride 1, 499 / 499 000 ML @ 60 mls/hr IVC . [id number] [facility] Rx#: [id number] INVanz 1,000 MG In 0.9 % 100 / 100 Sodium Chloride (Mini-Bag +) 100 ML @ 100 mls/hr IVPB DAILY [facility] Rx#: [id number] Folvite 1 MG In Dextrose 50.2 / 50.2 5% 50 ML @ 50 mls/hr IVPB DAILY [facility] Rx#:[id number] Magnesium Sulfate 1 GM In 100 / 100 Dextrose 5% 100 ML @ 100 mls/hr IVPB ONCE ONE Rx# :[id number] Oral 208 / 208 0 / 0 Tube Feeding 30 / 30 Output: Catheter 400 / 400 Gastric Drainage 500 / 500 200 / 200 Other: Meal NPO for dinner Breakfast Percent of Meal Consumed 0% # Bowel Movements 1 Blood Glucose* 88 91 106 - General physical appearance well developed, well nourished, no distress - Eyes PERRL, normal ocular movement - ENT normal mucosa, normocephalic - Neck Neck exam: trachea midline - Respiratory normal expansion, other (soft rhonchi bilaterally) - Cardiovascular Cardiovascular exam: Present: RRR, no murmurs/rubs/gallops - Abdomen Abdomen: Present: soft, distended (less so than yday), tender (minimally). Absent: bowel sounds present, guarding, rebound - Integumentary no growths - Neurologic CN 2-12 grossly intact - Musculoskeletal normal posture - Psychiatric oriented to time, oriented to person, oriented to place, speech is normal, memory intact - Labs 07/10/16 05:21 07/10/16 05:21 Short CBC 07/10/16 07/09/16 Range/Units 05:21 17:19 WBC 17.7 H 19.0 H (4.3-11.1) K/mcL Hgb 10.4 L 10.6 L (12.9-16.9) g/dL Hct 31.8 L 31.8 L (37.5-50.1) % Plt Count 327 310 (140-400) K/mcL Neutrophils # 15.1 H 16.1 H (1.6-8.9) K/mcL BMP 07/10/16 Range/Units 05:21 Sodium 141 (136-145) mEq/L Potassium 3.5 (3.5-4.5) mEq/L Chloride 107 (98-109) mEq/L Carbon Dioxide 22 (19-29) mEq/L BUN 15 (8-26) mg/dL Creatinine 0.60 L (0.72-1.25) mg/dL Glucose 99 (70-99) mg/dL Calcium 8.6 (8.6-10.8) mg/dL Liver Function 07/10/16 Range/Units 05:21 Total Bilirubin 0.6 (0.2-1.2) mg/dL AST 39 H (5-34) Units/L ALT 20 (0-55) Units/L Alkaline Phosphatase 74 (38-126) Units/L Albumin 2.3 L (3.5-5.0) g/dL Vital Signs Temp Pulse Resp BP Pulse Ox 07/10/16 11:10 97.7 F 101 22 141/90 88 L 07/10/16 10:36 14 92 L 07/10/16 07:17 98.4 F 104 20 127/84 94 L 07/10/16 05:56 98.1 F 104 20 139/91 89 L 07/10/16 04:34 18 93 L 07/10/16 01:27 18 92 L 07/09/16 23:46 111 131/86 91 L 07/09/16 21:00 98.0 F 112 20 147/93 91 L 07/09/16 16:50 116 144/97 07/09/16 15:51 18 98 07/09/16 15:18 99.3 F 100 23 114/62 92 L Intake and Output 07/09/16 07/10/16 07/10/16 23:59 07:59 15:59 Intake Total 238 / 238 499 / 499 250.2 / 250.2 Output Total 900 / 900 200 / 200 Balance -662 / -662 299 / 299 250.2 / 250.2 Intake: IV Fluids 499 / 499 250.2 / 250.2 0.9 % Sodium Chloride 1, 499 / 499 000 ML @ 60 mls/hr IVC . [id number] [facility] Rx#: [id number] INVanz 1,000 MG In 0.9 % 100 / 100 Sodium Chloride (Mini-Bag +) 100 ML @ 100 mls/hr IVPB DAILY [facility] Rx#: [id number] Folvite 1 MG In Dextrose 50.2 / 50.2 5% 50 ML @ 50 mls/hr IVPB DAILY [facility] Rx#:[id number] Magnesium Sulfate 1 GM In 100 / 100 Dextrose 5% 100 ML @ 100 mls/hr IVPB ONCE ONE Rx# :[id number] Oral 208 / 208 0 / 0 Tube Feeding 30 / 30 Output: Catheter 400 / 400 Gastric Drainage 500 / 500 200 / 200 Other: Meal NPO for dinner Breakfast Percent of Meal Consumed 0% # Bowel Movements 1 Blood Glucose* 88 91 106 Consult Discharge Plan - Plan [facility]errals: [facility] [Primary Care Provider] -
--- NOTE | 2016-07-10 23:33 | Electrocardiograph Report ---
[facility] Test Date: 2016-07-09 Pat Name: Ankit Melendez Department: 111 Room: 2NE18 Gender: M Paginator: GREY : 1950 Requested By: Diana Boothe Order Number: [id number] Reading MD: Evan Mckeon MD Measurements Intervals [place] Rate: 114 P: 43 UT: 144 QRS: 35 QRSD: 96 T: 23 QT: 314 QTc: 382 Interpretive Statements SINUS TACHYCARDIA WITH FREQUENT VENTRICULAR PREMATURE COMPLEXES LOW QRS VOLTAGE IN PRECORDIAL LEADS INCOMPLETE RIGHT BUNDLE BRANCH BLOCK Electronically Signed On 07-10-16 23:32:39 EST by Evan Mckeon MD
[2016-07-11 05:17] LABS: Basophils # 0.1 K/mcL (0.0-0.2); Basophils % 0.5 %; Eosinophils # 0.1 K/mcL (0.0-0.6); Eosinophils % 0.7 %; Hematocrit 31.9 % (37.5-50.1); Hemoglobin 10.7 g/dL (12.9-16.9); Lymphocytes # 1.8 K/mcL (0.6-4.6); Lymphocytes % 9.4 %; Mean Corpuscular HGB Conc 33.5 g/dL (31.6-35.5); Mean Corpuscular Hemoglobin 25.6 pg (28.0-33.3); Mean Corpuscular Volume 76.3 fL (83.0-100.0); Mean Platelet Volume 9.7 fL (9.4-12.4); Monocytes # 1.5 K/mcL (0.0-1.3); Neutrophils # 15.1 K/mcL (1.6-8.9); Platelet Count 367 K/mcL (140-400); Red Blood Count 4.18 M/mcL (4.19-5.50); Red Cell Distribution Width 17.2 % (11.5-14.5); Segmented Neutrophils % 80.4 %
[2016-07-11 05:28] LABS: BUN/Creatinine Ratio 27 (6-26); Blood Urea Nitrogen 16 mg/dL (8-26); Calcium 8.5 mg/dL (8.6-10.8); Carbon Dioxide 22 mEq/L (19-29); Chloride 106 mEq/L (98-109); Glucose 102 mg/dL (70-99); Magnesium 1.7 mg/dL (1.6-2.6); Osmolality,Calculated 291 (280-300); Potassium 3.6 mEq/L (3.5-4.5); Sodium 140 mEq/L (136-145); eGFR For African Americans > 60 (> 60); eGFR For Non-African Americans > 60 (> 60)
[2016-07-11] MEDS: Ipratropium/Albuterol Neb 3 ML IH SCH ×4 (05:28→22:26)
[2016-07-11] MEDS: *HR* HYDROmorphone (PF) 1 MG/ML SYRINGE IVP PRN ×3 (05:54→20:28)
[2016-07-11] MEDS: Pantoprazole 40 MG VIAL IVP SCH ×2 (05:57→17:10)
[2016-07-11] MEDS: *HR* Enoxaparin 40 MG/0.4 ML SYRINGE SQ SCH (05:57)
[2016-07-11] MEDS ORDERED: Clindamycin 600 MG/50 ML 600 MG/50 ML IV.SOLN IVPB SCH (08:00)
[2016-07-11] MEDS ORDERED: Vancomycin 1,250 MG in D5% in Water 250 ML IVPB SCH (08:00)
--- NOTE | 2016-07-11 08:30 | Internal Med Progress Note ---
Date of Encounter: 07/11/16 Time of Encounter: 08:00 - Assessment and plan (1) Severe sepsis Current Visit: Yes Status: Acute Assessment and plan: source is intraabdominal process (enteritis, suspected SBO, r/o mesenteric ischemia). 07/07 am: CT abdomen/pelvis showed multiple loops of fluid-filled, non dilated small bowel, bowel wall thickening with surrounding fat stranding and free fluid. diffuse pericholecystic, pernephritic, pericystic stranding. 07/07 pm: KUB showed malpositioned NGT, multiple air-filled mildly distended loops of large and small bowel in the mid abdomen. 07/08: CTAP showed partial SBO. blood culture negative so far. Appreciate surgical input. Patient's bowels are not showing signs of functional recovery (no BS and no flatus). Continue NGT with LIWS, and NPO. consult nutrition services for TPN. HIs WBC is trending up and CXR shows worsening of PNA, I will change antiobitcs to Zosyn and consult pulmonology, (2) Enteritis Current Visit: Yes Status: Acute Assessment and plan: plan as above. (3) Acute respiratory failure with hypoxia Current Visit: No Status: Acute Assessment and plan: secondary to pulmonary edema from fluid resuscitation, sepsis and abdominal distension. not on oxygen at home. he has COPD. 07/08: CTAP showed bibasal consolidations and pleural effusions. 07/08: echocardiogram showed LVEF 60%, mild LVH. 07/10: CXR Still on high oxygen requirements at 8L high flow nasal cannula. Continue oxygen supplementation, atrovent inhal, xopenex and change antibiotics to Zosyn. consult pulmonology. (4) Pulmonary edema Current Visit: Yes Status: Acute Assessment and plan: plan as above. Qualifiers: Chronicity: acute Qualified Code(s): J81.0 - Acute pulmonary edema (5) GI bleed Current Visit: No Status: Acute Assessment and plan: resolved. suspected GI bleed due to black NGT secretion. Patient with episode of severe acute blood anemia from PUD in October 2014 that required transfusion of 14 units of PRBC. On IV PPI BID. 07/10-07/11: NGT secretions are greenish. no signs of active bleeding. continue IV PPI. Qualifiers: GI bleed type/associated pathology: unspecified gastrointestinal hemorrhage type Qualified Code(s): K92.2 - Gastrointestinal hemorrhage, unspecified (6) Anemia Current Visit: Yes Status: Acute Assessment and plan: ferritin is 110. b12 is 369. folate is 6.4. 07/10: Hb is trending down to 10.4 from 14 on admission. this could be dilutional after fluid resuscitation +/- upper GI bleed and folate deficiency. hgb is 10.7. continue IV PPI, Iv folate. will continue to monitor. Qualifiers: Anemia type: other cause Other causes of anemia: other cause, not classified Qualified Code(s): D64.89 - Other specified anemias (7) Small bowel obstruction Current Visit: Yes Status: Suspected Assessment and plan: 07/08: CTAP revealed partial SBO. plan as above. (8) Frequent PVCs Current Visit: Yes Status: Acute Assessment and plan: Developed frequent PVC overnight. HR in the high 100s. EKG this morning showed sinus tachicardia HR 114, frequent PVC. 07/08: echocardiogram showed LVEF 60-65%, mild LVH, continue IV metoprolol tid. give 1 mg of Mg. (9) COPD (chronic obstructive pulmonary disease) Current Visit: No Status: Acute Assessment and plan: plan as above. Qualifiers: COPD type: unspecified COPD Qualified Code(s): J44.9 - Chronic obstructive pulmonary disease, unspecified (10) Hyperkalemia Current Visit: Yes Status: Acute Assessment and plan: resolved. secondary to sepsis. (11) Hypomagnesemia Current Visit: Yes Status: Acute Assessment and plan: replete. (12) Tobacco abuse Current Visit: No Status: Chronic Assessment and plan: nicotine patch. counseled to quit done. - Subjective Interval history: NGT is draining greenish light secretions. still requiring 8L high flow nasal cannula. He feels his abdomen is less distended but no flatus and no BM. - Constitutional Vitals: Temp Pulse Resp BP Pulse Ox 98.6 F 107 22 139/90 92 L 07/11/16 07:50 07/11/16 07:50 07/11/16 07:50 07/11/16 07:50 07/11/16 07:50 General appearance: Present: cooperative, A&O X 3, pleasant, no acute distress, answers questions appropriately - Eye Eye exam: Present: sclera anicteric - Neck Neck exam general surgery: Present: supple, trachea midline. Absent: lymphadenopathy - Respiratory Respiratory exam: Present: decreased breath sounds, rales, rhonchi - Cardiovascular Cardiovascular exam: Present: tachycardia - GI/Abdominal Additional comments: soft, distended, no bowel sounds, minimal terndeness to palpation - Extremities Exam Extremities exam: Absent: pedal edema - Back Exam Back exam: Absent: CVA tenderness (L), CVA tenderness (R) - Neurological Exam Neurological exam: Present: alert, oriented X3, no focal deficits. Absent: facial droop, speech deficit - Skin Skin exam: Present: erythema (in forehead and malar area) Internal Medicine: Result - Labs CBC & Chem 7: 07/11/16 05:08 07/11/16 05:08 Labs: Short CBC 07/11/16 Range/Units 05:08 WBC 18.8 H (4.3-11.1) K/mcL Hgb 10.7 L (12.9-16.9) g/dL Hct 31.9 L (37.5-50.1) % Plt Count 367 (140-400) K/mcL Neutrophils # 15.1 H (1.6-8.9) K/mcL BMP 07/11/16 05:08 Sodium 140 Potassium 3.6 Chloride 106 Carbon Dioxide 22 BUN 16 Creatinine 0.60 L Glucose 102 H Calcium 8.5 L - ABG Interpretation ABG results: ABG ABG pH 7.45 pH Units (7.32-7.45) 07/10/16 13:01 ABG pCO2 37 mmHg (35-45) 07/10/16 13:01 ABG pO2 55 mmHg (85-104) L 07/10/16 13:01 ABG O2 Saturation 90 % (95-98) L 07/10/16 13:01 PT/INR, D-dimer PT 13.4 Seconds (9.4-12.1) H 07/10/16 05:21 - Impressions Impressions Chest X-Ray 07/10/16 08:36 IMPRESSION: Multifocal airspace opacities, mildly progressed in the right lung. D/ / Bernadette Cooper MD / Bernadette Cooper MD Interpreting Provider: Bernadette Cooper MD X-Ray 07/10/16 09:50 IMPRESSION: Enteric tube has been placed with tip in the proximal body of the stomach and side-port either within the cardia of the stomach or at gastroesophageal junction. Advancement suggested. D/ / 07/10/2016 10:18:47 Paddy Christianson MD / beka Interpreting Provider: Paddy Christianson MD Consult Discharge Plan - Plan [facility]errals: [facility] [Primary Care Provider] -
[2016-07-11] MEDS ORDERED: Levalbuterol Neb 1.25 MG/3 ML IH PRN (08:39)
[2016-07-11] MEDS ORDERED: Magnesium Sulfate 1 GM in D5% in Water 100 ML IVPB ONE (08:39)
[2016-07-11] MEDS: Nicotine 21 MG PATCH.TD24 TD SCH (08:53)
[2016-07-11] MEDS: *HR* Metoprolol 5 MG/5 ML VIAL IVP SCH ×3 (08:53→23:51)
[2016-07-11] MEDS: Piperacillin/Tazobactam 3.375 GM in D5% in Water (Mini-Bag+) 100 ML IVPB SCH ×3 (08:55→23:51)
[2016-07-11 09:01] LABS: Phosphorous 2.9 mg/dL (2.3-4.7); Triglycerides 176 mg/dL (< 150)
[2016-07-11] MEDS: Levalbuterol Neb 1.25 MG/3 ML IH SCH ×3 (10:23→20:45)
[2016-07-11] MEDS ORDERED: Lidocaine -MPF 1% 5 ML AMPUL INFILT ONE (10:24)
--- NOTE | 2016-07-11 11:27 | Electrocardiograph Report ---
[facility] Test Date: 2016-07-11 Pat Name: Ankit Melendez Department: 111 Room: 2NE18 Gender: M Chip Mixer: YING : 1950 Requested By: Diana Boothe Order Number: [id number] Reading MD: Wing Martinez MD Measurements Intervals [place] Rate: 96 P: 51 ND: 174 QRS: 35 QRSD: 102 T: 32 QT: 344 QTc: 398 Interpretive Statements SINUS RHYTHM WITH FREQUENT VENTRICULAR PREMATURE COMPLEXES LEFT ATRIAL ENLARGEMENT INCOMPLETE RIGHT BUNDLE BRANCH BLOCK Electronically Signed On 07-11-16 11:26:51 EST by Wing Martinez MD
[2016-07-11] MEDS ORDERED: D10% in Water 500 ML IV PRN (12:05)
[2016-07-11] MEDS: Folic Acid 1 MG in D5% in Water 50 ML IVPB SCH (14:26)
[2016-07-11] MEDS ORDERED: Clinimix E 5%-20% SOLUTION 2,000 ML with MVI, adult with vitamin K 10 ML IV SCH (17:00)
[2016-07-12] MEDS: *HR* Morphine 2 MG/ML SYRINGE IVP PRN (03:38)
[2016-07-12 04:10] LABS: Alanine Aminotransferase 20 Units/L (0-55); Albumin 2.2 g/dL (3.5-5.0); Albumin/Globulin Ratio 0.5 (1.1-2.2); Alkaline Phosphatase 66 Units/L (38-126); Aspartate Amino Transferase 30 Units/L (5-34); BUN/Creatinine Ratio 25 (6-26); Bilirubin,Total 0.6 mg/dL (0.2-1.2); Blood Urea Nitrogen 15 mg/dL (8-26); Calcium 8.5 mg/dL (8.6-10.8); Carbon Dioxide 25 mEq/L (19-29); Chloride 104 mEq/L (98-109); Globulin 4.5 g/dL (2.4-3.5); Glucose 116 mg/dL (70-99); Magnesium 1.5 mg/dL (1.6-2.6); Osmolality,Calculated 292 (280-300); Potassium 3.3 mEq/L (3.5-4.5); Sodium 140 mEq/L (136-145); Total Protein 6.7 g/dL (6.0-8.3); eGFR For African Americans > 60 (> 60); eGFR For Non-African Americans > 60 (> 60)
[2016-07-12 04:13] LABS: Basophils # 0.1 K/mcL (0.0-0.2); Basophils % 0.4 %; Eosinophils # 0.2 K/mcL (0.0-0.6); Hematocrit 31.7 % (37.5-50.1); Hemoglobin 10.4 g/dL (12.9-16.9); Immature Granulocytes % 2.6 % (0-4); Lymphocytes # 2.3 K/mcL (0.6-4.6); Lymphocytes % 12.1 %; Mean Corpuscular HGB Conc 32.8 g/dL (31.6-35.5); Mean Corpuscular Hemoglobin 25.3 pg (28.0-33.3); Mean Corpuscular Volume 77.1 fL (83.0-100.0); Mean Platelet Volume 10.1 fL (9.4-12.4); Monocytes # 1.4 K/mcL (0.0-1.3); Monocytes % 7.1 %; Neutrophils # 14.8 K/mcL (1.6-8.9); Platelet Count 401 K/mcL (140-400); Red Blood Count 4.11 M/mcL (4.19-5.50); Red Cell Distribution Width 17.1 % (11.5-14.5); Segmented Neutrophils % 76.8 %
[2016-07-12] MEDS: Ipratropium/Albuterol Neb 3 ML IH SCH ×4 (04:28→21:27)
[2016-07-12 05:37] LABS: Toxic Granulation Present (Not Present); Toxic Vacuolation Present (Not Present)
[2016-07-12 05:38] LABS: Reactive Lymphocytes Present (Not Present)
[2016-07-12] MEDS: *HR* Enoxaparin 40 MG/0.4 ML SYRINGE SQ SCH (06:40)
[2016-07-12] MEDS: Pantoprazole 40 MG VIAL IVP SCH ×2 (06:40→16:59)
[2016-07-12] MEDS ORDERED: Magnesium Sulfate 2 GM in D5% in Water 100 ML IVPB ONE (08:28)
[2016-07-12] MEDS: Folic Acid 1 MG in D5% in Water 50 ML IVPB SCH (08:33)
[2016-07-12] MEDS: Piperacillin/Tazobactam 3.375 GM in D5% in Water (Mini-Bag+) 100 ML IVPB SCH ×2 (08:34→16:34)
[2016-07-12] MEDS: *HR* Metoprolol 5 MG/5 ML VIAL IVP SCH ×2 (08:36→16:38)
[2016-07-12] MEDS: Nicotine 21 MG PATCH.TD24 TD SCH (08:36)
[2016-07-12] MEDS ORDERED: Vancomycin 1,250 MG in D5% in Water 250 ML IVPB SCH (09:00)
[2016-07-12] MEDS: *HR* HYDROmorphone (PF) 1 MG/ML SYRINGE IVP PRN ×3 (09:04→21:15)
--- NOTE | 2016-07-12 10:24 | Internal Med Progress Note ---
<Dom Baer P - Last Filed: 07/12/16 17:47> Date of Encounter: 07/12/16 - Constitutional Vitals: Temp Pulse Resp BP Pulse Ox 98.7 F 94 18 113/78 96 07/12/16 15:28 07/12/16 15:28 07/12/16 15:54 07/12/16 15:28 07/12/16 15:54 Internal Medicine: Result - Labs CBC & Chem 7: 07/12/16 03:50 07/12/16 03:50 Labs: Short CBC 07/12/16 Range/Units 03:50 WBC 19.3 H (4.3-11.1) K/mcL Hgb 10.4 L (12.9-16.9) g/dL Hct 31.7 L (37.5-50.1) % Plt Count 401 H (140-400) K/mcL Neutrophils # 14.8 H (1.6-8.9) K/mcL BMP 07/12/16 03:50 Sodium 140 Potassium 3.3 L Chloride 104 Carbon Dioxide 25 BUN 15 Creatinine 0.60 L Glucose 116 H Calcium 8.5 L Liver Function 07/12/16 Range/Units 03:50 Total Bilirubin 0.6 (0.2-1.2) mg/dL AST 30 (5-34) Units/L ALT 20 (0-55) Units/L Alkaline Phosphatase 66 (38-126) Units/L Albumin 2.2 L (3.5-5.0) g/dL - ABG Interpretation ABG results: ABG ABG pH 7.45 pH Units (7.32-7.45) 07/10/16 13:01 ABG pCO2 37 mmHg (35-45) 07/10/16 13:01 ABG pO2 55 mmHg (85-104) L 07/10/16 13:01 ABG O2 Saturation 90 % (95-98) L 07/10/16 13:01 PT/INR, D-dimer PT 13.4 Seconds (9.4-12.1) H 07/10/16 05:21 - Impressions Impressions Chest X-Ray 07/12/16 08:41 IMPRESSION: Worsening bilateral airspace disease which may represent edema or pneumonia D/ / Hayder Ayala MD / Hayder Ayala MD Interpreting Provider: Hayder Ayala MD Abdomen X-Ray 07/12/16 09:08 IMPRESSION: 1. Nasogastric tube tip overlies the gastric fundus. Sidehole has been advanced. 2. Findings suggest ongoing small bowel obstruction. D/ / 07/12/2016 09:51:42 Ubaldo Jewell MD / dennys Interpreting Provider: Ubaldo Jewell MD Consult Discharge Plan - Plan [facility]errals: [facility] [Primary Care Provider] - - Attending Attestation I examined this patient and my medical decision-making was reviewed with the LOCATION DIRECTOR/PA/Advanced Practice Nurse/Resident Physician. I agree with the documented findings, disposition and treatment plan as described except to the extent set forth below. await surgical opinion <Yohannes Mcgee - Last Filed: 07/13/16 15:23> Date of Encounter: 07/13/16 Time of Encounter: 08:30 - Assessment and plan (1) Small bowel obstruction Current Visit: Yes Status: Acute Assessment and plan: patient has KUB with SBO gas pattern today. CT abd/pelvis with contrast from 07/08/15 suggest partial bowel obstruction. Possible enteritis from CT A/P on suggest possible enteritis. Doubt ischemic colitis with normal lactic acid. NG to LIWS with 900 ccs output over last 24 hours. Continue Zosyn. Management per Surgical team. we appreciate their input and assistance with this patient. (2) Sepsis Current Visit: Yes Status: Acute Assessment and plan: Patient meets sepsis criteria with tachypnea, tachycardia, and Leukocytosis. Neutrophilia present with toxic granulations suggestive of infectious etiology. Source is likely from HCAP. However may also be related to intra abdominal pathology. Lactic acid 1.2 Hemodynamically stable. Will increase Antibiotic coverage for HCAP. Add Vancomycin and Levofloxacin. repeat blood cultures were drawn. Qualifiers: Qualified Code(s): A41.9 - Sepsis, unspecified organism (3) HCAP (healthcare-associated pneumonia) Current Visit: Yes Status: Acute Assessment and plan: Increase antibiotic coverage. Add Vancomycin and Zosyn. (4) Respiratory failure Current Visit: Yes Status: Acute Assessment and plan: patient on high flow oxygen. Likely secondary to HCAP. May also consider aspiration Pneumonia given abdominal pathology present. Increase Antibiotic coverage. Duonebs O2 as needed. encourage pulmonary toilette. Qualifiers: Qualified Code(s): J96.90 - Respiratory failure, unspecified, unspecified whether with hypoxia or hypercapnia (5) Anemia Current Visit: Yes Status: Acute Assessment and plan: microcytic stable. check hematinics. Possible malabsorption given prior surgical history. Qualifiers: Qualified Code(s): D64.9 - Anemia, unspecified (6) Hypokalemia Current Visit: Yes Status: Acute Assessment and plan: replete (7) Protein calorie malnutrition Current Visit: Yes Status: Acute Assessment and plan: patient is currently recieving TPN. If blood cultures are positive will need to exchange PICC line. (8) DVT prophylaxis Current Visit: Yes Status: Acute Assessment and plan: on lovenox - Subjective Interval history: Mr. Melendez is a 66 y.o. male with pmh of multiple abdominal surgeries. He was admitted with concern for possible Enteritis seen on CT scan on 07/06/16. He had repeat CT of the abdomen and pelvis on 07/08/16 which showed partial small bowel obstruction. He has been followed by surgery. Today Mr. Melendez states that he feels very poorly. He is having difficulty breathing ( on 9L). Of note Sister reports history of dysphagia. He also states that he has not had a bowel movement or past flatus. He admits to productive yellow sputum. He has no further complaints or concerns at this time. - Constitutional Vitals: Temp Pulse Resp BP Pulse Ox 97.6 F 105 24 120/83 92 L 07/12/16 07:54 07/12/16 07:54 07/12/16 07:54 07/12/16 07:54 07/12/16 07:54 General appearance: Present: pleasant, no acute distress, answers questions appropriately Exam: General: This is a very pleasant well-developed well-nourished 66-year-old male who is currently alert and orientated to person place time and situation. He is lying in bed is diaphoretic and to get neck appears to be in some mild distress at this time. HEENT: Head is normocephalic and atraumatic. Pupils are equally round reactive to light and accommodation, anicteric sclera. He does have a NG tube is in place with bilious drainage. The mucous membranes are moist dentition is intact. Neck is supple without mass or thyromegaly. There is no cervical submandibular subclavicular lymphadenopathy palpable on exam. Next heart: Heart has a regular rhythm is mildly tachycardic. There is no murmur rubs or gallops noted on exam. No carotid bruits. Lungs: He has a increased effort of breathing. He is to. He speaks in phrases. However there is no accessory muscles in use at this time. He does have bilateral coarse rhonchi and audible crepitus more so on the right than the left. Abdomen: The abdomen is distended, there is multiple surgical scars on the abdomen noted. He does have bowel sounds in all quadrants. He does have diffuse tenderness that is mild. The abdomen is tympanic to percussion. No peritoneal signs. Negative heelstrike maneuver. Musculoskeletal: Grossly normal for age no gross deformity noted. Extremities: There is no clubbing, cyanosis or edema. All extremities are warm without mottling. Integument: There is no rashes or lesions noted on my exam. Internal Medicine: Result - Labs CBC & Chem 7: 07/13/16 04:08 07/13/16 04:08 Labs: Short CBC 07/12/16 Range/Units 03:50 WBC 19.3 H (4.3-11.1) K/mcL Hgb 10.4 L (12.9-16.9) g/dL Hct 31.7 L (37.5-50.1) % Plt Count 401 H (140-400) K/mcL Neutrophils # 14.8 H (1.6-8.9) K/mcL BMP 07/12/16 03:50 Sodium 140 Potassium 3.3 L Chloride 104 Carbon Dioxide 25 BUN 15 Creatinine 0.60 L Glucose 116 H Calcium 8.5 L Liver Function 07/12/16 Range/Units 03:50 Total Bilirubin 0.6 (0.2-1.2) mg/dL AST 30 (5-34) Units/L ALT 20 (0-55) Units/L Alkaline Phosphatase 66 (38-126) Units/L Albumin 2.2 L (3.5-5.0) g/dL - ABG Interpretation ABG results: ABG ABG pH 7.45 pH Units (7.32-7.45) 07/10/16 13:01 ABG pCO2 37 mmHg (35-45) 07/10/16 13:01 ABG pO2 55 mmHg (85-104) L 07/10/16 13:01 ABG O2 Saturation 90 % (95-98) L 07/10/16 13:01 PT/INR, D-dimer PT 13.4 Seconds (9.4-12.1) H 07/10/16 05:21 - Impressions Impressions Chest X-Ray 07/12/16 08:41 IMPRESSION: Worsening bilateral airspace disease which may represent edema or pneumonia D/ / Hayder Ayala MD / Hayder Ayala MD Interpreting Provider: Hayder Ayala MD Abdomen X-Ray 07/12/16 09:08 IMPRESSION: 1. Nasogastric tube tip overlies the gastric fundus. Sidehole has been advanced. 2. Findings suggest ongoing small bowel obstruction. D/ : / 07/12/2016 09:51:42 Ubaldo Jewell MD / dennys Interpreting Provider: Ubaldo Jewell MD
[2016-07-12] MEDS ORDERED: Vancomycin 2,000 MG in D5% in Water 500 ML IVPB ONE (11:00)
[2016-07-12] MEDS: Levalbuterol Neb 1.25 MG/3 ML IH SCH (11:02)
--- NOTE | 2016-07-12 16:09 | General Surgery Progress Note ---
Date of Encounter: 07/12/16 Time of Encounter: 14:50 - Assessment and Plan (1) Enteritis Current Visit: Yes Status: Acute Continue with conservative measures at this time; awaiting Dr. Boothe's evaluation of abdominal series. NPO with NG tube to LIWS TPN( per nutrition increasing 50ml/hr > 83.3ml/hr tomorrow) IV antibiotics- Vancomycin & Zosyn & Levaquin (per medicine service) Supportive care/pain control Serial abdominal exams Repeat labs in the am Surgery will continue to follow and assess progress (2) GI bleed Current Visit: No Status: Acute Concern for anemia 2/2 to GI bleed. Patient with episode of severe acute blood anemia from PUD in October 2014 that required transfusion of 14 units of PRBC. Hgb since admission 14.3>11>10.4 Continue PPI Monitor H/H, transfuse if needed. Will re-evaluate in the AM. Qualifiers: GI bleed type/associated pathology: unspecified gastrointestinal hemorrhage type Qualified Code(s): K92.2 - Gastrointestinal hemorrhage, unspecified (3) Anemia Current Visit: Yes Status: Acute See above plan Qualifiers: Anemia type: other cause Other causes of anemia: other cause, not classified Qualified Code(s): D64.89 - Other specified anemias Subjective Patient reports: no new complaints, still having pain, no bowel movement, shortness of breath (currently on 10L supplemental O2.), afebrile Objective Vital Signs - Last 8 Hours Temp Pulse Resp BP Pulse Ox 07/12/16 15:54 18 96 07/12/16 15:28 98.7 F 94 20 113/78 95 07/12/16 11:26 97.9 F 102 30 135/89 90 L 07/12/16 11:02 18 91 L Intake and Output 07/12/16 07/12/16 07/12/16 07:59 15:59 23:59 Intake Total 220 / 220 200 / 200 Output Total 1675 / 1675 675 / 675 Balance -1455 / -1455 -475 / -475 Intake: IV Fluids 100 / 100 200 / 200 Zosyn 3.375 GM In 100 / 100 Dextrose 5% (Minibag+) 100 ML 100 ML @ 25 mls/hr IVPB Q8HR [facility] Rx#: [id number] Potassium Chloride 10 mEq 200 / 200 /100mL 10 meq In 100 ml @ 100 mls/hr IVPB Q1H [facility] Rx#:[id number] Oral 120 / 120 Output: Urine 225 / 225 Urethral (Wilde) 225 / 225 Gastric Tube Lavage 900 / 900 Amount Left Nare 900 / 900 Catheter 550 / 550 100 / 100 Gastric Drainage 575 / 575 Other: Meal NPO # Voids 0 Blood Glucose* 118 154 - General physical appearance well developed, moderate distress - Eyes normal ocular movement - ENT normal mucosa, atraumatic, normocephalic - Neck Neck exam: trachea midline - Respiratory other (wet rhonchi with increased effort bilaterally) - Cardiovascular Cardiovascular exam: Present: tachycardia - Abdomen Abdomen: Present: soft, non tender, distended. Absent: bowel sounds present - Neurologic CN 2-12 grossly intact - Psychiatric oriented to person, oriented to place, speech is normal, memory intact - Labs 07/12/16 03:50 07/12/16 03:50 Diabetes panel 07/12/16 Range/Units 03:50 Sodium 140 (136-145) mEq/L Potassium 3.3 L (3.5-4.5) mEq/L Chloride 104 (98-109) mEq/L Carbon Dioxide 25 (19-29) mEq/L BUN 15 (8-26) mg/dL Creatinine 0.60 L (0.72-1.25) mg/dL Glucose 116 H (70-99) mg/dL Calcium 8.5 L (8.6-10.8) mg/dL AST 30 (5-34) Units/L ALT 20 (0-55) Units/L Alkaline Phosphatase 66 (38-126) Units/L Albumin 2.2 L (3.5-5.0) g/dL Calcium panel 07/12/16 07/12/16 Range/Units 03:50 03:50 Calcium 8.5 L (8.6-10.8) mg/dL Phosphorus 2.3 (2.3-4.7) mg/dL Albumin 2.2 L (3.5-5.0) g/dL Pituitary panel 07/12/16 Range/Units 03:50 Sodium 140 (136-145) mEq/L Potassium 3.3 L (3.5-4.5) mEq/L Chloride 104 (98-109) mEq/L Carbon Dioxide 25 (19-29) mEq/L BUN 15 (8-26) mg/dL Creatinine 0.60 L (0.72-1.25) mg/dL Glucose 116 H (70-99) mg/dL Calcium 8.5 L (8.6-10.8) mg/dL Adrenal panel 07/12/16 Range/Units 03:50 Sodium 140 (136-145) mEq/L Potassium 3.3 L (3.5-4.5) mEq/L Chloride 104 (98-109) mEq/L Carbon Dioxide 25 (19-29) mEq/L BUN 15 (8-26) mg/dL Creatinine 0.60 L (0.72-1.25) mg/dL Glucose 116 H (70-99) mg/dL Calcium 8.5 L (8.6-10.8) mg/dL Total Bilirubin 0.6 (0.2-1.2) mg/dL AST 30 (5-34) Units/L ALT 20 (0-55) Units/L Alkaline Phosphatase 66 (38-126) Units/L Albumin 2.2 L (3.5-5.0) g/dL Consult Discharge Plan - Plan [facility]errals: [facility] [Primary Care Provider[facility] -
[2016-07-12] MEDS: Levofloxacin 750 MG/150 ML 750 MG/150 ML BAG IVPB SCH (16:45)
[2016-07-12] MEDS ORDERED: Clinimix E 5%-20% SOLUTION 2,000 ML with MVI, adult with vitamin K 10 ML IV SCH (17:00)
[2016-07-12] MEDS ORDERED: Vancomycin 1,750 MG in D5% in Water 500 ML IVPB SCH (23:00)
[2016-07-13] MEDS: *HR* Metoprolol 5 MG/5 ML VIAL IVP SCH ×3 (00:19→16:48)
[2016-07-13] MEDS: Piperacillin/Tazobactam 3.375 GM in D5% in Water (Mini-Bag+) 100 ML IVPB SCH ×3 (00:19→16:49)
[2016-07-13] MEDS: *HR* HYDROmorphone (PF) 1 MG/ML SYRINGE IVP PRN ×4 (01:15→18:36)
[2016-07-13] MEDS: Ipratropium/Albuterol Neb 3 ML IH SCH ×4 (04:08→21:11)
[2016-07-13 04:19] LABS: Basophils # 0.2 K/mcL (0.0-0.2); Basophils % 0.7 %; Eosinophils # 0.5 K/mcL (0.0-0.6); Eosinophils % 2.1 %; Hematocrit 32.3 % (37.5-50.1); Hemoglobin 10.6 g/dL (12.9-16.9); Immature Granulocytes % 2.6 % (0-4); Lymphocytes # 2.9 K/mcL (0.6-4.6); Lymphocytes % 12.6 %; Mean Corpuscular HGB Conc 32.8 g/dL (31.6-35.5); Mean Corpuscular Hemoglobin 25.5 pg (28.0-33.3); Mean Corpuscular Volume 77.8 fL (83.0-100.0); Mean Platelet Volume 9.8 fL (9.4-12.4); Monocytes # 1.2 K/mcL (0.0-1.3); Monocytes % 5.3 %; Platelet Count 410 K/mcL (140-400); Red Blood Count 4.15 M/mcL (4.19-5.50); Red Cell Distribution Width 17.2 % (11.5-14.5); Segmented Neutrophils % 76.7 %
[2016-07-13 04:32] LABS: Neutrophils # 17.6 K/mcL (1.6-8.9)
[2016-07-13 04:39] LABS: % Iron Saturation 6 % (20-55); BUN/Creatinine Ratio 25 (6-26); Blood Urea Nitrogen 15 mg/dL (8-26); Calcium 8.2 mg/dL (8.6-10.8); Carbon Dioxide 25 mEq/L (19-29); Chloride 103 mEq/L (98-109); Glucose 101 mg/dL (70-99); Iron 15 mcg/dL (65-175); Magnesium 1.8 mg/dL (1.6-2.6); Osmolality,Calculated 285 (280-300); Phosphorous 3.1 mg/dL (2.3-4.7); Potassium 3.4 mEq/L (3.5-4.5); Sodium 137 mEq/L (136-145); Transferrin 190 mg/dL (174-364); eGFR For African Americans > 60 (> 60); eGFR For Non-African Americans > 60 (> 60)
[2016-07-13 04:59] LABS: Ferritin 107 ng/ml (22-275)
[2016-07-13 05:16] LABS: Anisocytosis 1+ (Not Present); Microcytosis Present (Not Present); Platelet Estimate Increased (Normal); Polychromasia 1+ (Not Present); Toxic Granulation Present (Not Present)
[2016-07-13] MEDS: *HR* Enoxaparin 40 MG/0.4 ML SYRINGE SQ SCH (05:46)
[2016-07-13] MEDS: Pantoprazole 40 MG VIAL IVP SCH ×2 (06:33→16:48)
[2016-07-13] MEDS ORDERED: Aminoglycoside Consult 1 EACH MC ONE (08:29)
[2016-07-13] MEDS: Folic Acid 1 MG in D5% in Water 50 ML IVPB SCH (09:00)
[2016-07-13] MEDS: Levofloxacin 750 MG/150 ML 750 MG/150 ML BAG IVPB SCH (09:01)
[2016-07-13] MEDS: Nicotine 21 MG PATCH.TD24 TD SCH (09:03)
[2016-07-13] MEDS: Vancomycin 1,500 MG in D5% in Water 250 ML IVPB SCH (15:22)
--- NOTE | 2016-07-13 15:26 | Internal Med Progress Note ---
<Yohannes Mcgee - Last Filed: 07/13/16 15:34> Date of Encounter: 07/13/16 Time of Encounter: 06:30 - Assessment and plan (1) Small bowel obstruction Current Visit: Yes Status: Acute Assessment and plan: patient has KUB with SBO gas pattern today. CT abd/pelvis with contrast from 07/08/15 suggest partial bowel obstruction. Possible enteritis from CT A/P on 07/06/65 suggest possible enteritis. Doubt ischemic colitis with normal lactic acid. NG to LIWS with 900 ccs output over last 24 hours. Continue Zosyn. Management per Surgical team. we appreciate their input and assistance with this patient. 07/13/16 No clinical improvement today. Still no flatus or bowel movements. May consider small bowel follow through or Possible today however we will defer to surgery. we appreciate surgeries assistance. If patient dose go to OR we will transfer to ICU after. I have discussed this patient with Dr. Park. (2) Sepsis Current Visit: Yes Status: Acute Assessment and plan: Patient meets sepsis criteria with tachypnea, tachycardia, and Leukocytosis. Neutrophilia present with toxic granulations suggestive of infectious etiology. Source is likely from HCAP. However may also be related to intra abdominal pathology. Lactic acid 1.2 Hemodynamically stable. Will increase Antibiotic coverage for HCAP. Add Vancomycin and Levofloxacin. repeat blood cultures were drawn. 07/13/16 Hemodynamically stable. WBC trending up. blood cultures pending. Not much change clinically. continue broad spectrum antibiotics with Vancomycin/Zosyn/and Levofloxacin. (3) HCAP (healthcare-associated pneumonia) Current Visit: Yes Status: Acute Assessment and plan: as stated above. (4) Respiratory failure Current Visit: Yes Status: Acute Assessment and plan: patient on high flow oxygen. Likely secondary to HCAP. May also consider aspiration Pneumonia given abdominal pathology present. continue antibiotics. Duonebs O2 as needed. encourage pulmonary toilette. (5) Anemia Current Visit: Yes Status: Acute Assessment and plan: microcytic stable. Possible malabsorption given prior surgical history. I think this is likely dilutional. No evidence of bleeding at this time. hematinics pending (6) Hypokalemia Current Visit: Yes Status: Acute Assessment and plan: replete (7) Protein calorie malnutrition Current Visit: Yes Status: Acute Assessment and plan: patient is currently recieving TPN. If blood cultures are positive will need to exchange PICC line. (8) History of dysphagia Current Visit: Yes Status: Acute Assessment and plan: secondary to neurofibromatosis ( per family and patient) (9) DVT prophylaxis Current Visit: Yes Status: Acute Assessment and plan: on lovenox - Subjective Interval history: No major events overnight. He did have some mild confusion overnight after the was given antivan for anxiety. Today he states that he is feeling better. He thinks he is breathing a little better. Pain is well controlled. Denies flatus or BM. No further complaints or concerns at this time. - Constitutional Vitals: Temp Pulse Resp BP Pulse Ox 98.2 F 122 16 118/75 93 L 07/13/16 13:26 07/13/16 13:26 07/13/16 13:26 07/13/16 13:26 07/13/16 13:26 General appearance: Present: A&O X 3, pleasant, no acute distress, answers questions appropriately - Head Head exam: Present: atraumatic, normocephalic - Eye Eye exam: Present: PERRL, conjuntiva pink, sclera anicteric Pupils: Present: PERRL - ENT ENT exam: Present: mucous membranes moist Additional comments: NG in left nare. - Neck Neck exam general surgery: Present: supple, trachea midline. Absent: lymphadenopathy - Respiratory Additional comments: normal effort. Has bilateral rhonchi and wheezes - Cardiovascular Cardiovascular exam: Present: RRR, +S1, +S2. Absent: diastolic murmur, gallop, rubs, systolic murmur - GI/Abdominal Additional comments: multiple surgical scars, distended, hypoactive bowel sounds present. Mild tenderness to palpation diffusely. Negative heal strike no rebound tenderness. - Extremities Exam Extremities exam: Present: warm, radial pulses palpable and symetrical. Absent : calf tenderness, cyanotic, pedal edema - Skin Skin exam: Present: dry, intact Internal Medicine: Result - Labs CBC & Chem 7: 07/13/16 04:08 07/13/16 04:08 Labs: Short CBC 07/13/16 Range/Units 04:08 WBC 22.9 H (4.3-11.1) K/mcL Hgb 10.6 L (12.9-16.9) g/dL Hct 32.3 L (37.5-50.1) % Plt Count 410 H (140-400) K/mcL Neutrophils # 17.6 H (1.6-8.9) K/mcL BMP 07/13/16 04:08 Sodium 137 Potassium 3.4 L Chloride 103 Carbon Dioxide 25 BUN 15 Creatinine 0.61 L Glucose 101 H Calcium 8.2 L - ABG Interpretation ABG results: ABG ABG pH 7.45 pH Units (7.32-7.45) 07/10/16 13:01 ABG pCO2 37 mmHg (35-45) 07/10/16 13:01 ABG pO2 55 mmHg (85-104) L 07/10/16 13:01 ABG O2 Saturation 90 % (95-98) L 07/10/16 13:01 PT/INR, D-dimer PT 13.4 Seconds (9.4-12.1) H 07/10/16 05:21 - Impressions Impressions Abdomen X-Ray 07/12/16 09:08 IMPRESSION: 1. Nasogastric tube tip overlies the gastric fundus. Sidehole has been advanced. 2. Findings suggest ongoing small bowel obstruction. D/ : / 07/12/2016 09:51:42 Ubaldo Jewell MD / dennys Interpreting Provider: Ubaldo Jewell MD Consult Discharge Plan - Plan [facility]errals: [facility] [Primary Care Provider] - <Dom Baer P - Last Filed: 07/13/16 17:34> Date of Encounter: 07/13/16 - Constitutional Vitals: Temp Pulse Resp BP Pulse Ox 98.2 F 107 22 100/72 93 L 07/13/16 16:12 07/13/16 16:12 07/13/16 16:22 07/13/16 16:12 07/13/16 16:22 Internal Medicine: Result - Labs CBC & Chem 7: 07/13/16 04:08 07/13/16 04:08 Labs: Short CBC 07/13/16 Range/Units 04:08 WBC 22.9 H (4.3-11.1) K/mcL Hgb 10.6 L (12.9-16.9) g/dL Hct 32.3 L (37.5-50.1) % Plt Count 410 H (140-400) K/mcL Neutrophils # 17.6 H (1.6-8.9) K/mcL BMP 07/13/16 04:08 Sodium 137 Potassium 3.4 L Chloride 103 Carbon Dioxide 25 BUN 15 Creatinine 0.61 L Glucose 101 H Calcium 8.2 L - ABG Interpretation ABG results: ABG ABG pH 7.45 pH Units (7.32-7.45) 07/10/16 13:01 ABG pCO2 37 mmHg (35-45) 07/10/16 13:01 ABG pO2 55 mmHg (85-104) L 07/10/16 13:01 ABG O2 Saturation 90 % (95-98) L 07/10/16 13:01 PT/INR, D-dimer PT 13.4 Seconds (9.4-12.1) H 07/10/16 05:21 - Impressions Impressions Abdomen X-Ray 07/12/16 09:08 IMPRESSION: 1. Nasogastric tube tip overlies the gastric fundus. Sidehole has been advanced. 2. Findings suggest ongoing small bowel obstruction. D/ : / 07/12/2016 09:51:42 Ubaldo Jewell MD / dennys Interpreting Provider: Ubaldo Jewell MD Small Bowel X-Ray 07/13/16 10:49 IMPRESSION: 1. Low-grade partial small bowel obstruction versus ileus. Oral contrast is seen in the rectum from recent CT of the abdomen and pelvis dated July 11, 2016. Oral contrast given on the day of the exam reaches the colon at the 4 hour dyana. D/ / 07/13/2016 17:02:31 Monroe Wilson MD / beka Interpreting Provider: Monroe Wilson MD - Attending Attestation I examined this patient and my medical decision-making was reviewed with the WIRE DRAWER/PA/Advanced Practice Nurse/Resident Physician. I agree with the documented findings, disposition and treatment plan as described except to the extent set forth below. Noted that anesthesia has seen as a preoperative evaluation. Surgery on the board and we will follow their recommendations. Patient to go to ICU/stepdown unit postoperatively. ICU/stepdown unit notified regarding possible patient transfer.
[2016-07-13] MEDS ORDERED: AMINO ACIDS 10% IV SCH (17:00)
[2016-07-13] MEDS ORDERED: [UNRECOGNIZED DRUG - OTHER] IV SCH (17:00)
[2016-07-13] MEDS ORDERED: MVI IV SCH (17:00)
[2016-07-13] MEDS ORDERED: CLINIMIX E IV SCH (17:00)
--- NOTE | 2016-07-13 17:11 | Anesthesia Evaluation PreOp ---
<Vishal Pena - Last Filed: 07/13/16 17:08> Date of Encounter: 07/13/16 Time of Encounter: 17:08 - Past History Planned Operation: ex lap Cardiac History: HTN Pulmonary History: COPD VEST MAKER History: Other (anxiety, bipolar, depression) Other Medical History: Hepatic (hcv), Other (sbo, ngt) Anesthesia History: No Prior Anesthetic Complications, Past Anesthesia (bowel rsxn, colostomy) Alcohol Use: none Drug use: none Medications and Allergies Carvedilol [Coreg] 6.25 mg PO BID 10/15/15 [History] Escitalopram [Lexapro] 10 mg PO DAILY 10/15/15 [History] OLANZapine [Zyprexa] 5 mg PO QAM 10/23/15 [History] Ipratropium/Albuterol Sulfate [Combivent Respimat Inhal Manito] 1 puff IH TID [History] OLANZapine [Zyprexa] 10 mg PO QPM 07/06/16 [History] Ranitidine HCl [Acid Baffle Installer] 150 mg PO BID 07/06/16 [History] Sennosides/Docusate Sodium [Senna Plus] 1 each PO HS 07/06/16 [History] Tamsulosin [Flomax] 0.4 mg PO HS 07/06/16 [History] Allergies haloperidol [From Haldol] Allergy (Verified 10/15/15 14:00) Hives - Meds/Allergy Pre-op Review Medications Reviewed: Yes (vanc given 1500, zosyn due at 1700) Allergies Reviewed: Yes Beta Blockers on Current Med List: Yes If Beta Blockers taken, Date/Time (Last Dose taken): metoprolol at 09:00 Anesthesia Results - Labs 07/13/16 04:08 07/13/16 04:08 - Imaging EKG: report reviewed (sr/pvc, rbbb,) Chest x-ray: report reviewed (bilar ASD 07/12) Anesthesia Exam Vital Signs/O2 Sat/Glucose, Most Current Temp Pulse Resp BP Pulse Ox 07/13/16 16:22 22 93 L 07/13/16 16:12 98.2 F 107 22 100/72 93 L 07/13/16 13:26 98.2 F 122 16 118/75 93 L Height: 1.91 Weight: 88 NPO (# of Hours): >8 Anesthesia Assess/Plan ASA Score: 3 Modified [place] Scale for Level of Consciousness: Cooperative, oriented, and tranquil Anesthetic Plan: General Monitoring Plan: Standard Monitors Recovery Plan: PACU <Shira Mcmillan - Last Filed: 07/13/16 22:47> Date of Encounter: 07/13/16 - Past History Pulmonary History: Smoker VEST MAKER History: Other (BiPolar, Anxiety/Depression) Other Medical History: Hepatic (Treated for Hep C per patient. Pt believes it is "all gone" now.), Other Anesthesia History: Past Anesthesia (Hx of Bowel resection re: diverticulitis) Anesthesia Results - Labs 07/13/16 04:08 07/13/16 04:08 Laboratory Results Impressions Abdomen/Pelvis CT 07/08/16 13:30 IMPRESSION: 1. Dilated proximal small bowel, with gradual transition point in the right anterior abdomen (axial images 120-125), suggestive of a partial small bowel obstruction. No findings are seen such as bowel wall thickening or submucosal edema to specifically suggest ongoing enteritis. 2. Small amount of ascites, unchanged. 3. There is a 6 mm radiodensity adjacent to the biliary ampulla, favored to represent contrast within a tiny duodenum diverticulum. The biliary tree is decompressed. 4. Bibasilar airspace consolidation with small bilateral pleural effusions, concerning for pneumonia. D/ /08/2016 15:20:37 Ubaldo Jewell MD / Radha Schultz Interpreting Provider: Ubaldo Jewell MD X-Ray 07/10/16 09:50 IMPRESSION: Enteric tube has been placed with tip in the proximal body of the stomach and side-port either within the cardia of the stomach or at gastroesophageal junction. Advancement suggested. D/ / 07/10/2016 10:18:47 Paddy Christianson MD / beka Interpreting Provider: Paddy Christianson MD Chest X-Ray 07/12/16 08:41 IMPRESSION: Worsening bilateral airspace disease which may represent edema or pneumonia D/ / Hayder Ayala MD / Hayder Ayala MD Interpreting Provider: Hayder Ayala MD Abdomen X-Ray 07/12/16 09:08 IMPRESSION: 1. Nasogastric tube tip overlies the gastric fundus. Sidehole has been advanced. 2. Findings suggest ongoing small bowel obstruction. D/ / 07/12/2016 09:51:42 Ubaldo Jewell MD / dennys Interpreting Provider: Ubaldo Jewell MD Small Bowel X-Ray 07/13/16 10:49 IMPRESSION: 1. Low-grade partial small bowel obstruction versus ileus. Oral contrast is seen in the rectum from recent CT of the abdomen and pelvis dated July 11, 2016. Oral contrast given on the day of the exam reaches the colon at the 4 hour dyana. D/ / 07/13/2016 17:02:31 Monroe Wilson MD / beka Interpreting Provider: Monroe Wilson MD Laboratory Tests 07/06/16 07/10/16 07/11/16 19:21 05:21 05:08 PT 13.4 H INR 1.2 APTT 32.6 Est GFR (Non-Af Amer) Magnesium Albumin Globulin Albumin/Globulin Ratio Prealbumin 4.0 L 07/12/16 07/13/16 03:50 04:08 PT INR APTT Est GFR (Non-Af Amer) > 60 Magnesium 1.8 Albumin 2.2 L Globulin 4.5 H Albumin/Globulin Ratio 0.5 L Prealbumin Anesthesia Exam Vital Signs Temp Pulse Resp BP Pulse Ox 07/13/16 21:00 99.1 F 118 23 122/81 95 07/13/16 16:22 22 93 L 07/13/16 16:12 98.2 F 107 22 100/72 93 L 07/13/16 13:26 98.2 F 122 16 118/75 93 L 07/13/16 10:14 24 95 07/13/16 07:18 99.2 F 120 24 114/82 95 07/13/16 05:38 98.6 F 114 24 125/85 94 L 07/13/16 03:32 98.8 F 119 22 145/97 92 L Intake and Output 07/13/16 07/13/16 07/13/16 07:59 15:59 23:59 Intake Total 950 / 950 200 / 200 100 / 100 Output Total 1300 / 1300 450 / 450 400 / 400 Balance -350 / -350 -250 / -250 -300 / -300 Intake: IV Fluids 950 / 950 200 / 200 100 / 100 Intralipid 20% 250 ML @ 250 / 250 21 mls/hr IVPB DAILY@1700 [facility] Rx#:[id number] Zosyn 3.375 GM In 100 / 100 100 / 100 Dextrose 5% (Minibag+) 100 ML 100 ML @ 25 mls/hr IVPB Q8HR [facility] Rx#: [id number] Potassium Chloride 10 mEq 100 / 100 100 / 100 100 / 100 /100mL 10 meq In 100 ml @ 100 mls/hr IVPB Q1H [facility] Rx#:[id number] Vancocin 1,750 MG In 500 / 500 Dextrose 5% 500 ML @ 333. 34 mls/hr IVPB Q12H [facility] Rx#:[id number] Oral 0 / 0 0 / 0 0 / 0 Output: Gastric Tube Lavage 200 / 200 Amount Left Nare 200 / 200 Catheter 450 / 450 450 / 450 400 / 400 Gastric Drainage 650 / 650 Other: Meal npo Breakfast Percent of Meal Consumed 0% Blood Glucose* 127 98 117 Height: 1.91 [6'3"] Weight: 88 [194#] BMI = 24 - HEENT Pupil (Motor): Pupils equal, EOMI Mallampati: II Teeth: Edentulous Oral Opening: Greater than 3 - VEST MAKER LOC: Oriented VEST MAKER Motor: Normal RUE, Normal LUE, Normal RLE, Normal LLE, Normal Face VEST MAKER Sensory: Normal: RUE, LUE, RLE, LLE, Face - Cardiac Rhythm: Regular Murmur: None JVD: No - Pulmonary Breath Sounds: bilateral Clear Respiratory Effort: Symmetrical Anes Supervising Prov Stmt: Pt seen/evaluated, R&B discussed, questions answered and consent obtained. - MD Claire
[2016-07-13] MEDS ORDERED: *HR* Rocuronium Bromide 50 MG/5 ML VIAL ONE (21:54)
[2016-07-13] MEDS ORDERED: Lidocaine -MPF 4% 5 ML AMPUL ONE (21:54)
[2016-07-13] MEDS ORDERED: *HR* Succinylcholine 200 MG/10 ML VIAL IVP ONE (21:54)
[2016-07-13] MEDS ORDERED: Lidocaine -MPF 2% 2 ML VIAL ONE ×2 (21:54→21:56)
[2016-07-13] MEDS ORDERED: *HR* FentaNYL (PF) 100 MCG/2 ML VIAL ONE (21:55)
[2016-07-13] MEDS ORDERED: *HR* Midazolam HCl 2 MG/2 ML VIAL ONE (21:55)
[2016-07-13] MEDS ORDERED: *HR* Propofol 200 MG/20 ML VIAL IVP ONE (21:56)
[2016-07-13] MEDS ORDERED: Acetaminophen IV 1,000 MG/100 ML INFUS..BTL ONE (22:27)
[2016-07-13] MEDS ORDERED: CefOXitin 2,000 MG VIAL IVPB ONE (22:56)
[2016-07-13] MEDS ORDERED: Vancomycin 1,500 MG in D5% in Water 250 ML IVPB SCH (23:00)
[2016-07-13] MEDS ORDERED: *HR* Phenylephrine 10 MG/ML VIAL ONE (23:17)
[2016-07-13] MEDS ORDERED: Ondansetron 4 MG/2 ML VIAL ONE (23:40)
[2016-07-13] MEDS ORDERED: Dexamethasone 4 MG/ML VIAL ONE (23:40)
[2016-07-13] MEDS ORDERED: *HR* Promethazine 25 MG/ML VIAL IVP PRN (23:44)
[2016-07-13] MEDS ORDERED: *HR* HYDROmorphone (PF) 1 MG/ML SYRINGE IVP PRN (23:44)
[2016-07-13] MEDS ORDERED: *HR* Labetalol 20 MG/4 ML SYRINGE IVP PRN (23:44)
[2016-07-13] MEDS ORDERED: *HR* HYDROmorphone 2 MG/ML SYRINGE ONE (23:53)
[2016-07-14] MEDS ORDERED: Neostigmine Methylsulfate 3 MG/3 ML SYRINGE ONE (00:15)
[2016-07-14] MEDS ORDERED: Dexamethasone 4 MG/ML VIAL ONE (00:26)
[2016-07-14] MEDS: Ringers Solution, Lactated 1,000 ML ONE ×2 (00:43→01:02)
--- NOTE | 2016-07-14 01:49 | Anesthesia Evaluation Post Op ---
Date of Encounter: 07/14/16 Time of Encounter: 01:47 - Vital Signs Vital Signs: Vital Signs/O2 Sat/Glucose, Most Current Temp Pulse Resp BP Pulse Ox 07/14/16 01:23 133 24 129/90 94 L 07/14/16 01:13 98.1 F 136 24 132/88 96 07/14/16 01:03 134 30 119/84 95 07/14/16 00:53 140 28 131/86 93 L 07/14/16 00:51 28 138 H 07/14/16 00:43 97.6 F 136 28 126/92 95 - Lungs Lungs: Treatment Ordered (PT requires cPAP for proper oxygenation. Pt has an O2 requirement at baseline and RT familiar with pt on Floor) - Airway Airway: Non-obstructed - Cardiovascular Baseline Rhythm - Mental Status Mental Status: Alert & Oriented, Answers Appropriately - Pain Pain Scale: 2 Pain Scale used: Becker-Spencer (Faces) - Nausea Vomiting Nausea Vomiting: Not Present - Hydration Hydration: Ice chips, Able to void - Discharge PostOp Status: Transfer Patient to floor Anes Supervising Prov Stmt: Pt seen/evaluated, VSSand pt has met criteria for discharge to floor. - MD Claire
[2016-07-14] MEDS ORDERED: D5% in 0.9% NACL w KCl 20 MEQ/1,000 ML MLS IVC SCH (02:15)
--- NOTE | 2016-07-14 02:23 | Event Note ---
Date of Encounter: 07/14/16 Time of Encounter: 02:16 Called to see patient on 2NE immediately after surgery. Pt was extubated in PACU reportedly and returned back to E. Upon my assessment of patient, he is somnolent, responds to painful/loud verbal stimuli, and is presently dependent on Bipap. Sister is present and worried about patient. On exam, he appears intravascularly dry, is working hard to breathe, and is somnolent (suspect from underlying sepsis and/or post-op effect from anesthesia/meds). I am moving patient to ICU for closer monitoring, critical care needs, possible intubation if necessary, and ongoing care. I will ask ICU team to assume care.
[2016-07-14 02:47] LABS: ABG Base Excess 1.7 mEq/L (-2.0 to 3.0); ABG HCO3 26.6 mEQ/L (21-27); ABG Oxygen Saturation 99 % (95-98); ABG PCO2 42 mmHg (35-45); ABG PH 7.41 pH Units (7.32-7.45); ABG PO2 126 mmHg (85-104); ABG TCO2 27.9 mEq/L (20-26)
[2016-07-14 02:49] LABS: Blood Gas FiO2 75 %
[2016-07-14] MEDS ORDERED: 0.9 % Sodium Chloride 1,000 ML IVC ONE (03:03)
[2016-07-14] MEDS: *HR* Metoprolol 5 MG/5 ML VIAL IVP SCH ×4 (03:21→23:59)
[2016-07-14] MEDS: Vancomycin 1,500 MG in D5% in Water 250 ML IVPB SCH (03:21)
[2016-07-14] MEDS: *HR* HYDROmorphone (PF) 1 MG/ML SYRINGE IVP PRN ×7 (03:22→22:01)
[2016-07-14] MEDS: Piperacillin/Tazobactam 3.375 GM in D5% in Water (Mini-Bag+) 100 ML IVPB SCH ×3 (03:22→16:43)
[2016-07-14 03:55] LABS: Hematocrit 31.5 % (37.5-50.1); Hemoglobin 10.3 g/dL (12.9-16.9); Mean Corpuscular HGB Conc 32.7 g/dL (31.6-35.5); Mean Corpuscular Hemoglobin 25.8 pg (28.0-33.3); Mean Corpuscular Volume 78.8 fL (83.0-100.0); Mean Platelet Volume 9.8 fL (9.4-12.4); Platelet Count 442 K/mcL (140-400); Red Cell Distribution Width 17.8 % (11.5-14.5)
[2016-07-14] MEDS: Ipratropium/Albuterol Neb 3 ML IH SCH ×4 (03:57→21:59)
[2016-07-14 04:00] LABS: Ionized Calcium 1.08 mmol/L (1.15-1.35)
[2016-07-14 04:07] LABS: Alanine Aminotransferase 15 Units/L (0-55); Albumin/Globulin Ratio 0.5 (1.1-2.2); Alkaline Phosphatase 63 Units/L (38-126); Aspartate Amino Transferase 29 Units/L (5-34); BUN/Creatinine Ratio 24 (6-26); Bilirubin,Total 0.7 mg/dL (0.2-1.2); Blood Urea Nitrogen 18 mg/dL (8-26); Calcium 7.9 mg/dL (8.6-10.8); Carbon Dioxide 25 mEq/L (19-29); Chloride 104 mEq/L (98-109); Globulin 4.2 g/dL (2.4-3.5); Glucose 158 mg/dL (70-99); Magnesium 1.6 mg/dL (1.6-2.6); Osmolality,Calculated 289 (280-300); Sodium 137 mEq/L (136-145); Total Protein 6.2 g/dL (6.0-8.3); eGFR For African Americans > 60 (> 60); eGFR For Non-African Americans > 60 (> 60)
[2016-07-14 04:23] LABS: Basophils # 0.2 K/mcL (0.0-0.2); Eosinophils # 0.2 K/mcL (0.0-0.6); Lymphocytes # 2.1 K/mcL (0.6-4.6); Monocytes # 0.2 K/mcL (0.0-1.3); Neutrophils # 20.4 K/mcL (1.6-8.9)
[2016-07-14] MEDS: *HR* Enoxaparin 40 MG/0.4 ML SYRINGE SQ SCH (06:05)
[2016-07-14] MEDS: Pantoprazole 40 MG VIAL IVP SCH ×2 (06:06→17:39)
--- NOTE | 2016-07-14 06:40 | Pulmonology Consult Note ---
<Disha Sena - Last Filed: 07/14/16 10:51> Date of Encounter: 07/14/16 Time of Encounter: 06:30 Assessment and Plan (1) Small bowel obstruction Current Visit: Yes Status: Acute Pt presented to [facility] with three days of abdominal pain Initial CT abd/pelvis demonstrated severe enteritis Repeat CT abd/pelvis on 07/08 demonstrated findings suggestive of partial small bowel obstruction Taken to OR yesterday by Dr. Boothe for Ex Lap, at which time appendectomy was performed. Management per surgery (2) Sepsis Current Visit: Yes Status: Acute Pt with tachypnea, tachycardia and Leukocytosis, met sepsis criteria Source possibly HCAP vs intra-abdominal etiology Lactic acid was 1.2 CT abd/pelvis radiology report on 07/08 demonstrated bibasilar airspace consolidation with small bilateral pleural effusions, concerning for pneumonia and antibiotic coverage was started with Levaquin, Vanc, and Zosyn. Blood and stool cultures negative We will de-escalate and discontinue Vanc and Levaquin at this time Qualifiers: Sepsis type: sepsis due to unspecified organism Qualified Code(s): A41.9 - Sepsis, unspecified organism (3) HCAP (healthcare-associated pneumonia) Current Visit: Yes Status: Acute CT abd/pelvis on 07/08 demonstrated bibasilar airspace consolidation with small bilateral pleural effusions, concerning for pneumonia Possible HCAP vs. atelectasis We will de-escalate antibiotics at this time, discontinue Vanc and Levaquin (4) COPD (chronic obstructive pulmonary disease) Current Visit: No Status: Acute ABG today: pH:7.41, pCO2: 42, HCO3: 26.6 Currently on BiPAP Scheduled breathing treatments Qualifiers: COPD type: unspecified COPD Qualified Code(s): J44.9 - Chronic obstructive pulmonary disease, unspecified (5) Hepatitis C Current Visit: No Status: Chronic Qualifiers: Viral hepatitis chronicity: chronic Hepatic coma status: without hepatic coma Qualified Code(s): B18.2 - Chronic viral hepatitis C (6) DVT prophylaxis Current Visit: No Status: Acute Lovenox 40mg SQ daily History of Present Illness Consult date: 07/14/16 Requesting physician: Yohannes Mcgee Reason for consult: dyspnea Chief complaint: Abdominal pain History of present illness: Mr. Melendez is a 66 year old male with history of COPD, HTN, hepatitis C, and PUD who presented to [facility] with 3 days of abdominal pain. CT abd/pelvis demonstrated findings consistent with severe infectious small bowel enteritis. Pt was admitted and surgery was consulted. At that time, conservative measures were recommended making pt NPO with NG tube to LIWS along with IVF. A repeat CT abd/pelvis demonstrated a partial SBO along with bibasilar airspace consolidation with small bilateral pleural effusions, concerning for pneumonia. Pt is currently on Vanc, Zosyn and Levaquin to cover possible HCAP. He was taken to surgery yesterday by Dr. Boothe. Shortly after returning to [facility], hospitalist was called to evaluation pt. At that time he was somnalent and somewhat difficult to arouse. Pt was dependent on BiPAP at that time. He was then transferred to the ICU for further care. This morning, pt is resting comfortably and responding to questioning. He reports that his abdomen is painful. Denies bowel movement or flatus. He denies nausea/vomiting, chest pain and shortness of breath with the BiPAP. NGT and forrest in place. Past Med Surg Social Fam HX - Past Medical History Medical history: COPD, GI bleed, hepatitis (recently treated for Hep C), hypertension, other Psychiatric history: anxiety, bipolar, depression - Past Surgical History Surgical History: colostomy (and subsequent revearsal), other (bowel resection with colostomy for diverticulitis) - Social History Smoking Status: Current every day smoker Smokeless Tobacco Status: No Alcohol use: none Drug use: none Medications and Allergies Carvedilol [Coreg] 6.25 mg PO BID 10/15/15 [History] Escitalopram [Lexapro] 10 mg PO DAILY 10/15/15 [History] OLANZapine [Zyprexa] 5 mg PO QAM 10/23/15 [History] Ipratropium/Albuterol Sulfate [Combivent Respimat Inhal [place]] 1 puff IH TID [History] OLANZapine [Zyprexa] 10 mg PO QPM 07/06/16 [History] Ranitidine HCl [Acid Ticket Speculator] 150 mg PO BID 07/06/16 [History] Sennosides/Docusate Sodium [Senna Plus] 1 each PO HS 07/06/16 [History] Tamsulosin [Flomax] 0.4 mg PO HS 07/06/16 [History] Allergies haloperidol [From Haldol] Allergy (Verified 10/15/15 14:00) Hives All Systems: A 10-system review of systems was performed and is negative for pertinent findings except as documented above in the HPI. - Cardiovascular Cardiovascular: no chest pain, no palpitations, no pedal edema - Respiratory Respiratory: other (On BiPAP), no dyspnea - Gastrointestinal Gastrointestinal: abdominal pain (Expected post-operative pain), no nausea, no vomiting - Genitourinary Genitourinary: other (Forrest catheter in place with 1485 output) - Neurological Neurological: no dizziness, no headache(s) Physical Examination Vital Signs: Vital Signs, Last 4 Hours Temp Pulse Resp BP Pulse Ox 07/14/16 06:02 108 17 144/97 96 07/14/16 05:43 123 15 152/103 95 07/14/16 05:04 106 14 149/107 96 07/14/16 04:58 22 95 07/14/16 04:30 98.0 F 118 16 151/101 97 07/14/16 04:00 98 12 134/94 99 07/14/16 03:58 13 99 07/14/16 03:30 99 21 126/96 99 07/14/16 03:25 115 15 149/97 98 07/14/16 03:15 116 15 149/97 98 07/14/16 03:00 117 17 139/92 98 07/14/16 02:45 119 18 126/86 98 07/14/16 02:40 96.9 F L 120 26 124/90 98 General appearance: no acute distress, other (BiPAP, Forrest catheter and NGT in place) Eyes: nonicteric ENT: oropharynx moist Neck: supple Auscultation: bilateral: clear Cardiovascular: other (regular rhythm, tachycardia) Gastrointestinal: absent bowel sounds, soft, tender (Expected post-operative tenderness), other (Dressing clean/dry/intact) Extremities: no edema, no clubbing, pink and warm, pulses normal non-focal exam Results - Laboratory Findings CBC and BMP: 07/14/16 03:40 07/14/16 03:40 ABG ABG pH 7.41 pH Units (7.32-7.45) 07/14/16 02:38 ABG pCO2 42 mmHg (35-45) 07/14/16 02:38 ABG pO2 126 mmHg (85-104) H 07/14/16 02:38 ABG O2 Saturation 99 % (95-98) H 07/14/16 02:38 PT/INR, D-dimer PT 13.4 Seconds (9.4-12.1) H 07/10/16 05:21 Abnormal lab findings: Abnormal lab results WBC 23.2 K/mcL (4.3-11.1) H 07/14/16 03:40 RBC 4.00 M/mcL (4.19-5.50) L 07/14/16 03:40 Hgb 10.3 g/dL (12.9-16.9) L 07/14/16 03:40 Hct 31.5 % (37.5-50.1) L 07/14/16 03:40 MCV 78.8 fL (83.0-100.0) L 07/14/16 03:40 MCH 25.8 pg (28.0-33.3) L 07/14/16 03:40 RDW 17.8 % (11.5-14.5) H 07/14/16 03:40 Plt Count 442 K/mcL (140-400) H 07/14/16 03:40 Band Neutrophils % 6.0 % (0-4) H 07/14/16 03:40 Neutrophils # 20.4 K/mcL (1.6-8.9) H 07/14/16 03:40 Reactive Lymphocytes Present (Not Present) A 07/12/16 03:50 Toxic Granulation Present (Not Present) A 07/13/16 04:08 Toxic Vacuolation Present (Not Present) A 07/12/16 03:50 Platelet Estimate Slight increase (Normal) H 07/14/16 03:40 Polychromasia 1+ (Not Present) A 07/13/16 04:08 Anisocytosis 1+ (Not Present) A 07/13/16 04:08 Microcytosis Present (Not Present) A 07/13/16 04:08 PT 13.4 Seconds (9.4-12.1) H 07/10/16 05:21 ABG pO2 126 mmHg (85-104) H 07/14/16 02:38 ABG Total CO2 27.9 mEq/L (20-26) H 07/14/16 02:38 ABG O2 Saturation 99 % (95-98) H 07/14/16 02:38 VBG pO2 74 mmHg (25-40) H 07/10/16 05:21 VBG HCO3 27.3 mEq/L (21-27) H 07/10/16 05:21 Glucose 158 mg/dL (70-99) H 07/14/16 03:40 POC Glucose 135 (58-89) H 07/14/16 02:37 Calcium 7.9 mg/dL (8.6-10.8) L 07/14/16 03:40 Ionized Calcium 1.08 mmol/L (1.15-1.35) L 07/14/16 03:40 Iron 15 mcg/dL (65-175) L 07/13/16 04:08 % Saturation 6 % (20-55) L 07/13/16 04:08 Albumin 2.0 g/dL (3.5-5.0) L 07/14/16 03:40 Globulin 4.2 g/dL (2.4-3.5) H 07/14/16 03:40 Albumin/Globulin Ratio 0.5 (1.1-2.2) L 07/14/16 03:40 Prealbumin 4.0 mg/dL (18.0-45.0) L 07/11/16 05:08 Triglycerides 176 mg/dL (< 150) H 07/11/16 05:08 Folate 6.4 ng/mL (7.0-31.4) L 07/08/16 12:07 Urine Bilirubin Small (Negative) H 07/07/16 05:40 - Clinical Findings Intake & Output: Intake & Output 07/13/16 07/13/16 07/14/16 15:59 23:59 07:59 Intake Total 200 / 200 350 / 350 2250 / 2250 Output Total 450 / 450 400 / 400 385 / 385 Balance -250 / -250 -50 / -50 1865 / 1865 Weight 93.2 kg Consult Discharge Plan - Plan [facility] Care Provider[facility] - <[place] - Last Filed: 07/14/16 13:14> Date of Encounter: 07/14/16 All Systems: A 10-system review of systems was performed and is negative for pertinent findings except as documented above in the HPI. Physical Examination Vital Signs: Vital Signs, Last 4 Hours Temp Pulse Resp BP Pulse Ox 07/14/16 11:15 97.5 F L 07/14/16 11:00 104 20 120/79 92 L 07/14/16 10:55 18 92 L 07/14/16 10:00 104 18 137/92 92 L Results - Laboratory Findings CBC and BMP: 07/14/16 03:40 07/14/16 03:40 ABG ABG pH 7.41 pH Units (7.32-7.45) 07/14/16 02:38 ABG pCO2 42 mmHg (35-45) 07/14/16 02:38 ABG pO2 126 mmHg (85-104) H 07/14/16 02:38 ABG O2 Saturation 99 % (95-98) H 07/14/16 02:38 PT/INR, D-dimer PT 13.4 Seconds (9.4-12.1) H 07/10/16 05:21 Abnormal lab findings: Abnormal lab results WBC 23.2 K/mcL (4.3-11.1) H 07/14/16 03:40 RBC 4.00 M/mcL (4.19-5.50) L 07/14/16 03:40 Hgb 10.3 g/dL (12.9-16.9) L 07/14/16 03:40 Hct 31.5 % (37.5-50.1) L 07/14/16 03:40 MCV 78.8 fL (83.0-100.0) L 07/14/16 03:40 MCH 25.8 pg (28.0-33.3) L 07/14/16 03:40 RDW 17.8 % (11.5-14.5) H 07/14/16 03:40 Plt Count 442 K/mcL (140-400) H 07/14/16 03:40 Band Neutrophils % 6.0 % (0-4) H 07/14/16 03:40 Neutrophils # 20.4 K/mcL (1.6-8.9) H 07/14/16 03:40 Reactive Lymphocytes Present (Not Present) A 07/12/16 03:50 Toxic Granulation Present (Not Present) A 07/13/16 04:08 Toxic Vacuolation Present (Not Present) A 07/12/16 03:50 Platelet Estimate Slight increase (Normal) H 07/14/16 03:40 Polychromasia 1+ (Not Present) A 07/13/16 04:08 Anisocytosis 1+ (Not Present) A 07/13/16 04:08 Microcytosis Present (Not Present) A 07/13/16 04:08 PT 13.4 Seconds (9.4-12.1) H 07/10/16 05:21 ABG pO2 126 mmHg (85-104) H 07/14/16 02:38 ABG Total CO2 27.9 mEq/L (20-26) H 07/14/16 02:38 ABG O2 Saturation 99 % (95-98) H 07/14/16 02:38 VBG pO2 74 mmHg (25-40) H 07/10/16 05:21 VBG HCO3 27.3 mEq/L (21-27) H 07/10/16 05:21 Glucose 158 mg/dL (70-99) H 07/14/16 03:40 POC Glucose 146 (58-89) H 07/14/16 11:11 Calcium 7.9 mg/dL (8.6-10.8) L 07/14/16 03:40 Ionized Calcium 1.08 mmol/L (1.15-1.35) L 07/14/16 03:40 Iron 15 mcg/dL (65-175) L 07/13/16 04:08 % Saturation 6 % (20-55) L 07/13/16 04:08 Albumin 2.0 g/dL (3.5-5.0) L 07/14/16 03:40 Globulin 4.2 g/dL (2.4-3.5) H 07/14/16 03:40 Albumin/Globulin Ratio 0.5 (1.1-2.2) L 07/14/16 03:40 Prealbumin 4.0 mg/dL (18.0-45.0) L 07/11/16 05:08 Triglycerides 176 mg/dL (< 150) H 07/11/16 05:08 Folate 6.4 ng/mL (7.0-31.4) L 07/08/16 12:07 Urine Bilirubin Small (Negative) H 07/07/16 05:40 - Microbiology Findings Microbiology Findings: Microbiology, Last 48 Hours 07/12/16 09:23 Blood Culture - Preliminary Peripheral Venipuncture No growth. - Clinical Findings Intake & Output: Intake & Output 07/13/16 07/14/16 07/14/16 23:59 07:59 15:59 Intake Total 350 / 350 2250 / 2250 1292.2 / 1292.2 Output Total 400 / 400 585 / 585 300 / 300 Balance -50 / -50 1665 / 1665 992.2 / 992.2 Weight 93.2 kg - Attending Attestation I examined this patient and my medical decision-making was reviewed with the JOB ORDER CLERK/PA/Advanced Practice Nurse/Resident Physician. I agree with the documented findings, disposition and treatment plan as described except to the extent set forth below. Patient seen and examined. Labs, radiology, chart personally reviewed. Agree with resident's history and physical, assessment, plan with following comments: LEAF BLENDER: Patient follows commands, Pulmonary: Acceptable oxygenation and ventilation on BiPAP and continue to wean off and trial of nasal canula and if need support then can be placed back on BiPAP. I'd try to avoid any NIV after surgery because of the air and abdominal distension. Cardiovascular: stable GI: Nutrition per dietary and GI prophylaxis per routine Heme: DVT prophylaxis per routine ID: Continue antibiotics and plan to de-escalation Renal; urine out put and renal funtion reviewed Endorcine: blood glucose is monitored Lines: all lines checked and no evidence of infections Skin: skin care to prevent pressure ulcers per nursing routine care Will keep patient in ICU for next 1-2 days for close monitoring.
[2016-07-14] MEDS: Levofloxacin 750 MG/150 ML 750 MG/150 ML BAG IVPB SCH (08:14)
[2016-07-14] MEDS: Nicotine 21 MG PATCH.TD24 TD SCH (08:16)
[2016-07-14] MEDS: Folic Acid 1 MG in D5% in Water 50 ML IVPB SCH (10:18)
[2016-07-14] MEDS ORDERED: Ringers Solution, Lactated 1,000 ML IVC SCH (11:00)
--- NOTE | 2016-07-14 15:42 | General Surgery Progress Note ---
Date of Encounter: 07/14/16 Time of Encounter: 15:30 - Assessment and Plan (1) Enteritis Current Visit: Yes Status: Acute Continue with conservative measures at this time: NPO with NG tube to LIWS IV fluids IV antibiotics- Ertapenem Supportive care/pain control Serial abdominal exams Repeat CT scan today with oral contrast via NG tube Repeat labs in the am Surgery will continue to follow and assess progress- no urgent surgical intervention indicated at this time. (2) Perforated appendicitis Current Visit: Yes Status: Acute POD #1 exploratory lap, SHANNON, repair of SB enterotomy NPO with NG tube to LIWS Await return of bowel function IV antibiotics TPN therapy Supportive care/pain control am labs Will continue to follow Subjective Patient reports: feels better, still having pain (surgical), pain is less, no flatus, no bowel movement, afebrile Objective Vital Signs - Last 8 Hours Temp Pulse Resp BP Pulse Ox 07/14/16 14:00 102 19 123/80 90 L 07/14/16 13:00 103 17 125/83 91 L 07/14/16 12:00 103 18 129/82 91 L 07/14/16 11:15 97.5 F L 07/14/16 11:00 104 20 120/79 92 L 07/14/16 10:55 18 92 L 07/14/16 10:00 104 18 137/92 92 L 07/14/16 09:00 102 25 126/77 95 07/14/16 08:00 94 26 132/88 94 L Intake and Output 07/13/16 07/14/16 07/14/16 23:59 07:59 15:59 Intake Total 350 / 350 2250 / 2250 1442.4 / 1442.4 Output Total 400 / 400 585 / 585 300 / 300 Balance -50 / -50 1665 / 1665 1142.4 / 1142.4 Intake: IV Fluids 350 / 350 2250 / 2250 1442.4 / 1442.4 Lactated Ringers 1,000 ML 1000 / 1000 As .ROUTE .STK-MED ONE Rx#:[id number] 0.9 % Sodium Chloride 1, 1000 / 1000 000 ML @ 3750 mls/hr IVC .Q16M ONE Rx#:[id number] KCl 20mEq in D5-0.9 NaCl 842 / 842 20 meq In 1,000 ml @ 125 mls/hr IVC .Q8H [facility] Rx#: [id number] Folvite 1 MG In Dextrose 100.4 / 100.4 5% 50 ML @ 50 mls/hr IVPB DAILY MICHAELA Rx#:[id number] Levaquin 750mg/150 mL 750 300 / 300 mg In 150 ml @ 100 mls/ hr IVPB DAILY MICHAELA Rx#: [id number] Zosyn 3.375 GM In 200 / 200 Dextrose 5% (Minibag+) 100 ML 100 ML @ 25 mls/hr IVPB Q8HR MICHAELA Rx#: [id number] Potassium Chloride 10 mEq 100 / 100 /100mL 10 meq In 100 ml @ 100 mls/hr IVPB Q1H MICHAELA Rx#:[id number] Vancocin 1,500 MG In 250 / 250 250 / 250 Dextrose 5% 250 ML @ 166. 67 mls/hr IVPB Q12H MICHAELA Rx#:[id number] Oral 0 / 0 0 / 0 Output: Estimated Blood Loss 200 / 200 Catheter 400 / 400 385 / 385 300 / 300 Gastric Drainage 0 / 0 Other: Weight 93.2 kg Blood Glucose* 117 168 146 Patient Weight 07/14/16 23:59 Weight 93.2 kg - General physical appearance well developed, no distress - Eyes normal ocular movement - ENT normal mucosa, atraumatic, normocephalic - Neck Neck exam: trachea midline - Respiratory clear to auscultation, other (diminished bibasilar bases) - Cardiovascular Cardiovascular exam: Present: tachycardia - Abdomen Abdomen: Present: soft, tender (expected post-operative tenderness), wound (NG tube to LIWS (no drainage noted)) - Incision Incision: Present: clean and dry, intact - Genitourinary other (forrest catheter to SD with clear, yellow urine) - Neurologic CN 2-12 grossly intact - Musculoskeletal other (deconditioning) - Psychiatric oriented to person, oriented to place - Labs 07/14/16 03:40 07/14/16 03:40 Diabetes panel 07/14/16 Range/Units 03:40 Sodium 137 (136-145) mEq/L Potassium 4.0 (3.5-4.5) mEq/L Chloride 104 (98-109) mEq/L Carbon Dioxide 25 (19-29) mEq/L BUN 18 (8-26) mg/dL Creatinine 0.74 (0.72-1.25) mg/dL Glucose 158 H (70-99) mg/dL Calcium 7.9 L (8.6-10.8) mg/dL AST 29 (5-34) Units/L ALT 15 (0-55) Units/L Alkaline Phosphatase 63 (38-126) Units/L Albumin 2.0 L (3.5-5.0) g/dL Calcium panel 07/14/16 Range/Units 03:40 Calcium 7.9 L (8.6-10.8) mg/dL Phosphorus 4.0 (2.3-4.7) mg/dL Albumin 2.0 L (3.5-5.0) g/dL Pituitary panel 07/14/16 Range/Units 03:40 Sodium 137 (136-145) mEq/L Potassium 4.0 (3.5-4.5) mEq/L Chloride 104 (98-109) mEq/L Carbon Dioxide 25 (19-29) mEq/L BUN 18 (8-26) mg/dL Creatinine 0.74 (0.72-1.25) mg/dL Glucose 158 H (70-99) mg/dL Calcium 7.9 L (8.6-10.8) mg/dL Adrenal panel 07/14/16 Range/Units 03:40 Sodium 137 (136-145) mEq/L Potassium 4.0 (3.5-4.5) mEq/L Chloride 104 (98-109) mEq/L Carbon Dioxide 25 (19-29) mEq/L BUN 18 (8-26) mg/dL Creatinine 0.74 (0.72-1.25) mg/dL Glucose 158 H (70-99) mg/dL Calcium 7.9 L (8.6-10.8) mg/dL Total Bilirubin 0.7 (0.2-1.2) mg/dL AST 29 (5-34) Units/L ALT 15 (0-55) Units/L Alkaline Phosphatase 63 (38-126) Units/L Albumin 2.0 L (3.5-5.0) g/dL - VTE Documentation of Mechanical Device: Intermittent pneumatic compression device Consult Discharge Plan - Plan [facility]errals: [facility] [Primary Care Provider[facility] -
[2016-07-14] MEDS ORDERED: MVI IV SCH (17:00)
[2016-07-14] MEDS ORDERED: [UNRECOGNIZED DRUG - OTHER] IV SCH (17:00)
[2016-07-14] MEDS ORDERED: AMINO ACIDS 10% IV SCH (17:00)
[2016-07-14] MEDS ORDERED: CLINIMIX E IV SCH (17:00)
[2016-07-14] MEDS: Ketorolac 15 MG/ML VIAL IVP SCH ×2 (17:39→23:59)
[2016-07-15] MEDS: Ipratropium/Albuterol Neb 3 ML IH SCH ×4 (04:04→22:20)
[2016-07-15] MEDS: *HR* HYDROmorphone (PF) 1 MG/ML SYRINGE IVP PRN ×5 (04:22→23:10)
[2016-07-15 04:25] LABS: Basophils % 0.1 %; Eosinophils % 0.2 %; Hematocrit 24.9 % (37.5-50.1); Immature Granulocytes % 1.3 % (0-4); Lymphocytes # 1.4 K/mcL (0.6-4.6); Lymphocytes % 5.6 %; Mean Corpuscular HGB Conc 32.9 g/dL (31.6-35.5); Mean Platelet Volume 9.9 fL (9.4-12.4); Monocytes # 0.8 K/mcL (0.0-1.3); Monocytes % 3.2 %; Platelet Count 367 K/mcL (140-400); Red Blood Count 3.15 M/mcL (4.19-5.50); Segmented Neutrophils % 89.6 %
[2016-07-15 04:29] LABS: Eosinophils # 0.1 K/mcL (0.0-0.6); Hemoglobin 8.2 g/dL (12.9-16.9); Neutrophils # 21.9 K/mcL (1.6-8.9)
[2016-07-15 04:51] LABS: BUN/Creatinine Ratio 29 (6-26); Blood Urea Nitrogen 20 mg/dL (8-26); Calcium 7.8 mg/dL (8.6-10.8); Carbon Dioxide 25 mEq/L (19-29); Chloride 106 mEq/L (98-109); Glucose 131 mg/dL (70-99); Hypochromasia Present (Not Present); Large Platelets Present (Not Present); Magnesium 1.7 mg/dL (1.6-2.6); Osmolality,Calculated 288 (280-300); Platelet Estimate Normal (Normal); Potassium 3.9 mEq/L (3.5-4.5); Sodium 137 mEq/L (136-145); Toxic Granulation Present (Not Present); eGFR For African Americans > 60 (> 60); eGFR For Non-African Americans > 60 (> 60)
[2016-07-15 04:52] LABS: Anisocytosis 1+ (Not Present); Microcytosis Present (Not Present)
[2016-07-15] MEDS: Pantoprazole 40 MG VIAL IVP SCH (06:21)
[2016-07-15] MEDS: *HR* Enoxaparin 40 MG/0.4 ML SYRINGE SQ SCH (06:22)
[2016-07-15] MEDS: Ketorolac 15 MG/ML VIAL IVP SCH ×4 (06:22→23:09)
--- NOTE | 2016-07-15 06:54 | Pulmonology Progress Note ---
<Disha Sena - Last Filed: 07/15/16 10:58> Date of Encounter: 07/15/16 Time of Encounter: 06:35 Assessment and Plan (1) Perforated appendicitis Current Visit: Yes Status: Acute POD#2 s/p exploratory lap, SHANNON, repair of SB enterotomy by Dr. Boothe Awaiting return of bowel function TPN for nutritional support Will follow surgery recommendations Hgb decreased from 10.3 yesterday to 8.2 today. Will repeat H&H this afternoon. Wilde catheter is in place at this time (2) Enteritis Current Visit: Yes Status: Acute Continue with conservative measures NPO with NG to LIWS Supportive care/pain control Receiving TPN for nutritional support Will follow surgery recommendations (3) Sepsis Current Visit: Yes Status: Acute Pt with tachypnea, tachycradia, and leukocytosis on admission, meeting sepsis criteria Likely due to intra-abdominal etiology Pt had exploratory lap demonstrating a perforated appendix Blood and stool cultures were negative On Zosyn for antibiotic coverage at this time. Qualifiers: Sepsis type: sepsis due to unspecified organism Qualified Code(s): A41.9 - Sepsis, unspecified organism (4) HCAP (healthcare-associated pneumonia) Current Visit: Yes Status: Acute CT abd/pelvis 07/08 deonstrated bibasilar airspace consolidation with small bilateral pleural effusions concerning for pneumonia Possible HCAP vs. atelectasis Blood and stool cultures negative Pt on NC for O2 support Continue Zosyn, source of infection more likely intra-abdominal rather than HCAP (5) COPD (chronic obstructive pulmonary disease) Current Visit: No Status: Acute On 6L NC at O2 sat:91% Scheduled breathing treatments Qualifiers: COPD type: unspecified COPD Qualified Code(s): J44.9 - Chronic obstructive pulmonary disease, unspecified (6) Hepatitis C Current Visit: No Status: Chronic Qualifiers: Viral hepatitis chronicity: chronic Hepatic coma status: without hepatic coma Qualified Code(s): B18.2 - Chronic viral hepatitis C (7) DVT prophylaxis Current Visit: No Status: Acute Lovenox 40mg SQ daily Subjective Principal diagnosis: Sepsis Interval history: Pt reports he is feeling better this morning, although he continues to have some abdominal pain. Pt is c/o sore throat secondary to NG tube placement. He denies any chest pain or shortness of breath at this time. He denies any flatus or bowel movements since surgery. Afebrile over night. Objective PUL Vital signs: Last Vital Signs Temp 97.8 F 07/15/16 04:39 Pulse 84 07/15/16 06:00 Resp 16 07/15/16 06:00 BP 110/69 07/15/16 06:00 Pulse Ox 91 L 07/15/16 06:00 General appearance: no acute distress, other (NG tube and Wilde catheter in place) Eyes: nonicteric ENT: oropharynx moist Neck: supple Effort: normal Auscultation: bilateral: clear Cardiovascular: regular rate and rhythm Gastrointestinal: absent bowel sounds, soft, tender (Expected post-operative tenderness), other (Incision clean and intact, scant blood drainage) Extremities: no cyanosis, no edema, no clubbing Musculoskeletal: no deformities, other (Pectus Excavatum) non-focal exam mood appropriate, affect normal Results - Laboratory Findings CBC and BMP: 07/15/16 04:10 07/15/16 04:10 ABG ABG pH 7.41 pH Units (7.32-7.45) 07/14/16 02:38 ABG pCO2 42 mmHg (35-45) 07/14/16 02:38 ABG pO2 126 mmHg (85-104) H 07/14/16 02:38 ABG O2 Saturation 99 % (95-98) H 07/14/16 02:38 PT/INR, D-dimer PT 13.4 Seconds (9.4-12.1) H 07/10/16 05:21 Abnormal lab findings: Abnormal lab results WBC 24.4 K/mcL (4.3-11.1) H 07/15/16 04:10 RBC 3.15 M/mcL (4.19-5.50) L 07/15/16 04:10 Hgb 8.2 g/dL (12.9-16.9) L D 07/15/16 04:10 Hct 24.9 % (37.5-50.1) L 07/15/16 04:10 MCV 79.0 fL (83.0-100.0) L 07/15/16 04:10 MCH 26.0 pg (28.0-33.3) L 07/15/16 04:10 RDW 18.0 % (11.5-14.5) H 07/15/16 04:10 Band Neutrophils % 6.0 % (0-4) H 07/14/16 03:40 Neutrophils # 21.9 K/mcL (1.6-8.9) H 07/15/16 04:10 Reactive Lymphocytes Present (Not Present) A 07/12/16 03:50 Toxic Granulation Present (Not Present) A 07/15/16 04:10 Toxic Vacuolation Present (Not Present) A 07/12/16 03:50 Large Platelets Present (Not Present) A 07/15/16 04:10 Polychromasia 1+ (Not Present) A 07/13/16 04:08 Hypochromasia Present (Not Present) A 07/15/16 04:10 Anisocytosis 1+ (Not Present) A 07/15/16 04:10 Microcytosis Present (Not Present) A 07/15/16 04:10 PT 13.4 Seconds (9.4-12.1) H 07/10/16 05:21 ABG pO2 126 mmHg (85-104) H 07/14/16 02:38 ABG Total CO2 27.9 mEq/L (20-26) H 07/14/16 02:38 ABG O2 Saturation 99 % (95-98) H 07/14/16 02:38 VBG pO2 74 mmHg (25-40) H 07/10/16 05:21 VBG HCO3 27.3 mEq/L (21-27) H 07/10/16 05:21 Creatinine 0.68 mg/dL (0.72-1.25) L 07/15/16 04:10 BUN/Creatinine Ratio 29 (6-26) H 07/15/16 04:10 Glucose 131 mg/dL (70-99) H 07/15/16 04:10 POC Glucose 137 (58-89) H 07/15/16 04:03 Calcium 7.8 mg/dL (8.6-10.8) L 07/15/16 04:10 Ionized Calcium 1.08 mmol/L (1.15-1.35) L 07/14/16 03:40 Iron 15 mcg/dL (65-175) L 07/13/16 04:08 % Saturation 6 % (20-55) L 07/13/16 04:08 Albumin 2.0 g/dL (3.5-5.0) L 07/14/16 03:40 Globulin 4.2 g/dL (2.4-3.5) H 07/14/16 03:40 Albumin/Globulin Ratio 0.5 (1.1-2.2) L 07/14/16 03:40 Prealbumin 6.0 mg/dL (18.0-45.0) L 07/15/16 04:10 Folate 6.4 ng/mL (7.0-31.4) L 07/08/16 12:07 Urine Bilirubin Small (Negative) H 07/07/16 05:40 - Microbiology Findings Microbiology Findings: Microbiology, Last 48 Hours 07/12/16 09:23 Blood Culture - Preliminary Peripheral Venipuncture No growth. - Clinical Findings Intake & Output: Intake & Output 07/14/16 07/14/16 07/15/16 15:59 23:59 07:59 Intake Total 1442.4 / 1442.4 100 / 100 100 / 100 Output Total 300 / 300 625 / 625 525 / 525 Balance 1142.4 / 1142.4 -525 / -525 -425 / -425 Weight 94.529 kg - VTE Documentation of Mechanical Device: Intermittent pneumatic compression device Consult Discharge Plan - Plan [facility]errals: [facility]Primary Care Provider[facility] - <Denzel [place] - Last Filed: 07/15/16 14:32> Date of Encounter: 07/15/16 Objective PUL Vital signs: Last Vital Signs Temp 97.4 F L 07/15/16 11:32 Pulse 84 07/15/16 13:00 Resp 20 07/15/16 13:00 BP 122/82 07/15/16 13:00 Pulse Ox 92 L 07/15/16 13:00 Results - Laboratory Findings CBC and BMP: 07/15/16 04:10 07/15/16 04:10 ABG ABG pH 7.41 pH Units (7.32-7.45) 07/14/16 02:38 ABG pCO2 42 mmHg (35-45) 07/14/16 02:38 ABG pO2 126 mmHg (85-104) H 07/14/16 02:38 ABG O2 Saturation 99 % (95-98) H 07/14/16 02:38 PT/INR, D-dimer PT 13.4 Seconds (9.4-12.1) H 07/10/16 05:21 Abnormal lab findings: Abnormal lab results WBC 24.4 K/mcL (4.3-11.1) H 07/15/16 04:10 RBC 3.15 M/mcL (4.19-5.50) L 07/15/16 04:10 Hgb 8.2 g/dL (12.9-16.9) L D 07/15/16 04:10 Hct 24.9 % (37.5-50.1) L 07/15/16 04:10 MCV 79.0 fL (83.0-100.0) L 07/15/16 04:10 MCH 26.0 pg (28.0-33.3) L 07/15/16 04:10 RDW 18.0 % (11.5-14.5) H 07/15/16 04:10 Band Neutrophils % 6.0 % (0-4) H 07/14/16 03:40 Neutrophils # 21.9 K/mcL (1.6-8.9) H 07/15/16 04:10 Reactive Lymphocytes Present (Not Present) A 07/12/16 03:50 Toxic Granulation Present (Not Present) A 07/15/16 04:10 Toxic Vacuolation Present (Not Present) A 07/12/16 03:50 Large Platelets Present (Not Present) A 07/15/16 04:10 Polychromasia 1+ (Not Present) A 07/13/16 04:08 Hypochromasia Present (Not Present) A 07/15/16 04:10 Anisocytosis 1+ (Not Present) A 07/15/16 04:10 Microcytosis Present (Not Present) A 07/15/16 04:10 PT 13.4 Seconds (9.4-12.1) H 07/10/16 05:21 ABG pO2 126 mmHg (85-104) H 07/14/16 02:38 ABG Total CO2 27.9 mEq/L (20-26) H 07/14/16 02:38 ABG O2 Saturation 99 % (95-98) H 07/14/16 02:38 VBG pO2 74 mmHg (25-40) H 07/10/16 05:21 VBG HCO3 27.3 mEq/L (21-27) H 07/10/16 05:21 Creatinine 0.68 mg/dL (0.72-1.25) L 07/15/16 04:10 BUN/Creatinine Ratio 29 (6-26) H 07/15/16 04:10 Glucose 131 mg/dL (70-99) H 07/15/16 04:10 POC Glucose 115 (58-89) H 07/15/16 11:09 Calcium 7.8 mg/dL (8.6-10.8) L 07/15/16 04:10 Ionized Calcium 1.08 mmol/L (1.15-1.35) L 07/14/16 03:40 Iron 15 mcg/dL (65-175) L 07/13/16 04:08 % Saturation 6 % (20-55) L 07/13/16 04:08 Albumin 2.0 g/dL (3.5-5.0) L 07/14/16 03:40 Globulin 4.2 g/dL (2.4-3.5) H 07/14/16 03:40 Albumin/Globulin Ratio 0.5 (1.1-2.2) L 07/14/16 03:40 Prealbumin 6.0 mg/dL (18.0-45.0) L 07/15/16 04:10 Folate 6.4 ng/mL (7.0-31.4) L 07/08/16 12:07 Urine Bilirubin Small (Negative) H 07/07/16 05:40 - Microbiology Findings Microbiology Findings: Microbiology, Last 48 Hours 07/12/16 09:23 Blood Culture - Preliminary Peripheral Venipuncture No growth. - Clinical Findings Intake & Output: Intake & Output 07/14/16 07/15/16 07/15/16 23:59 07:59 15:59 Intake Total 100 / 100 100 / 100 350 / 350 Output Total 625 / 625 675 / 675 150 / 150 Balance -525 / -525 -575 / -575 200 / 200 Weight 94.529 kg - Attending Attestation I examined this patient and my medical decision-making was reviewed with the [employer] TECHNICAL LEAD/PA/Advanced Practice Nurse/Resident Physician. I agree with the documented findings, disposition and treatment plan as described except to the extent set forth below. Patient seen and examined. Labs, radiology, chart personally reviewed. Agree with resident's history and physical, assessment, plan with following comments: INTRANET SPECIALIST: Patient follows commands, Pulmonary: Acceptable oxygenation and ventilation and continue bronchodilators Cardiovascular: stable GI: Nutrition per dietary and GI prophylaxis per routine. Patient on TPN Heme: DVT prophylaxis per routine ID: Continue antibiotic and plan to de-escalation Renal; urine out put and renal funtion reviewed. Will defer d/c Wilde's catheter to surgery Endorcine: blood glucose is monitored Lines: all lines checked and no evidence of infections Skin: skin care to prevent pressure ulcers per nursing routine care Patient is hemodynamically stable and can be transferred to floor.
[2016-07-15] MEDS: Nicotine 21 MG PATCH.TD24 TD SCH (08:52)
[2016-07-15] MEDS: *HR* Metoprolol 5 MG/5 ML VIAL IVP SCH ×3 (08:54→23:10)
[2016-07-15] MEDS: Piperacillin/Tazobactam 3.375 GM in D5% in Water (Mini-Bag+) 100 ML IVPB SCH ×4 (08:55→23:08)
[2016-07-15] MEDS: Folic Acid 1 MG in D5% in Water 50 ML IVPB SCH (09:15)
[2016-07-15] MEDS ORDERED: D10% in Water 500 ML IV PRN ×2 (10:46→18:39)
--- NOTE | 2016-07-15 13:32 | General Surgery Progress Note ---
Date of Encounter: 07/15/16 Time of Encounter: 08:30 - Assessment and Plan (1) Perforated appendicitis Current Visit: Yes Status: Acute POD #2 exploratory lap, SHANNON, repair of SB enterotomy NPO with NG tube to LIWS Await return of bowel function IV antibiotics- Zosyn TPN therapy Supportive care/pain control repeat am labs PT/OT daily Will continue to follow (2) HCAP (healthcare-associated pneumonia) Current Visit: Yes Status: Acute Management per pulmonary/medicine service Continue Zosyn per pulmonary recommendations (3) DVT prophylaxis Current Visit: Yes Status: Acute Continue Lovenox 40mg daily for DVT prophylaxis Subjective Patient reports: feels better, still having pain, pain is less, no flatus, no bowel movement, afebrile Objective Vital Signs - Last 8 Hours Temp Pulse Resp BP Pulse Ox 07/15/16 13:00 84 20 122/82 92 L 07/15/16 12:00 86 18 149/92 93 L 07/15/16 11:32 97.4 F L 07/15/16 11:00 87 19 127/96 95 07/15/16 10:00 97 18 114/82 94 L 07/15/16 09:07 18 110/65 91 L 07/15/16 09:00 87 18 110/65 94 L 07/15/16 08:00 91 18 109/70 93 L 07/15/16 07:45 98.2 F 07/15/16 06:00 84 16 110/69 91 L Intake and Output 07/14/16 07/15/16 07/15/16 23:59 07:59 15:59 Intake Total 100 / 100 100 / 100 350 / 350 Output Total 625 / 625 675 / 675 150 / 150 Balance -525 / -525 -575 / -575 200 / 200 Intake: IV Fluids 100 / 100 100 / 100 350 / 350 Intralipid 20% 250 ML @ 250 / 250 21 mls/hr IVPB DAILY@1700 [facility] Rx#:[id number] Zosyn 3.375 GM In 100 / 100 100 / 100 Dextrose 5% (Minibag+) 100 ML 100 ML @ 25 mls/hr IVPB Q8HR [facility] Rx#: [id number] Potassium Chloride 10 mEq 100 / 100 /100mL 10 meq In 100 ml @ 100 mls/hr IVPB Q1H [facility] Rx#:[id number] Oral 0 / 0 Output: Catheter 625 / 625 375 / 375 150 / 150 Gastric Drainage 300 / 300 Other: Weight 94.529 kg Blood Glucose* 188 128 115 - General physical appearance no distress, moderate pain (improved), chronically ill - Eyes normal ocular movement - ENT dry mucosa, atraumatic, normocephalic - Neck Neck exam: trachea midline - Respiratory normal respiratory effort, other (diminished bibasilar bases) rales: bilateral - Cardiovascular Cardiovascular exam: Present: RRR - Abdomen Abdomen: Present: bowel sounds present (minimal, hypoactive), soft, tender ( expected post-operative tenderness), wound (NG tube to LIWS (300ml noted since midnight)) - Genitourinary other (forrest catheter to SD with clear, yellow urine) - Neurologic CN 2-12 grossly intact - Musculoskeletal other (severe deconditioning) - Psychiatric oriented to person, oriented to place - Labs 07/15/16 04:10 07/15/16 04:10 Diabetes panel 07/15/16 07/15/16 Range/Units 04:10 04:10 Sodium 137 (136-145) mEq/L Potassium 3.9 (3.5-4.5) mEq/L Chloride 106 (98-109) mEq/L Carbon Dioxide 25 (19-29) mEq/L BUN 20 (8-26) mg/dL Creatinine 0.68 L (0.72-1.25) mg/dL Glucose 131 H (70-99) mg/dL Calcium 7.8 L (8.6-10.8) mg/dL Triglycerides 131 (< 150) mg/dL Calcium panel 07/15/16 07/15/16 Range/Units 04:10 04:10 Calcium 7.8 L (8.6-10.8) mg/dL Phosphorus 3.0 (2.3-4.7) mg/dL Pituitary panel 07/15/16 Range/Units 04:10 Sodium 137 (136-145) mEq/L Potassium 3.9 (3.5-4.5) mEq/L Chloride 106 (98-109) mEq/L Carbon Dioxide 25 (19-29) mEq/L BUN 20 (8-26) mg/dL Creatinine 0.68 L (0.72-1.25) mg/dL Glucose 131 H (70-99) mg/dL Calcium 7.8 L (8.6-10.8) mg/dL Adrenal panel 07/15/16 Range/Units 04:10 Sodium 137 (136-145) mEq/L Potassium 3.9 (3.5-4.5) mEq/L Chloride 106 (98-109) mEq/L Carbon Dioxide 25 (19-29) mEq/L BUN 20 (8-26) mg/dL Creatinine 0.68 L (0.72-1.25) mg/dL Glucose 131 H (70-99) mg/dL Calcium 7.8 L (8.6-10.8) mg/dL - VTE Documentation of Mechanical Device: Intermittent pneumatic compression device Consult Discharge Plan - Plan [facility]errals: [facility] [Primary Care Provider] - - Attending Attestation I examined this patient and my medical decision-making was reviewed with the YARN TESTER/PA/Advanced Practice Nurse/Resident Physician. I agree with the documented findings, disposition and treatment plan as described except to the extent set forth below.
[2016-07-15 16:39] LABS: Hematocrit 23.7 % (37.5-50.1)
[2016-07-15 16:42] LABS: Hemoglobin 6.7 g/dL (12.9-16.9)
[2016-07-15] MEDS ORDERED: MVI IV SCH (17:00)
[2016-07-15] MEDS ORDERED: AMINO ACIDS 10% IV SCH (17:00)
[2016-07-15] MEDS ORDERED: CLINIMIX E IV SCH (17:00)
[2016-07-15] MEDS ORDERED: [UNRECOGNIZED DRUG - OTHER] IV SCH (17:00)
[2016-07-15 17:02] LABS: Hemoglobin 8.3 g/dL (12.9-16.9)
[2016-07-15] MEDS ORDERED: *HR* LORazepam 2 MG/ML VIAL IVP PRN (18:39)
[2016-07-15] MEDS ORDERED: Acetaminophen 325 MG TABLET PO PRN (18:39)
[2016-07-15] MEDS ORDERED: Naloxone 0.4 MG/ML INJ IVP PRN (18:39)
[2016-07-15] MEDS ORDERED: Clinimix E 5%-20% SOLUTION 2,000 ML with MVI, adult with vitamin K 10 ML IV SCH (18:39)
[2016-07-16] MEDS: Ipratropium/Albuterol Neb 3 ML IH SCH ×4 (03:41→22:11)
[2016-07-16] MEDS: *HR* HYDROmorphone (PF) 1 MG/ML SYRINGE IVP PRN ×4 (04:27→19:36)
[2016-07-16 04:32] LABS: Basophils # 0.1 K/mcL (0.0-0.2); Basophils % 0.3 %; Eosinophils # 0.3 K/mcL (0.0-0.6); Eosinophils % 1.7 %; Hematocrit 25.9 % (37.5-50.1); Hemoglobin 8.6 g/dL (12.9-16.9); Immature Granulocytes % 1.2 % (0-4); Lymphocytes # 2.5 K/mcL (0.6-4.6); Lymphocytes % 14.2 %; Mean Corpuscular HGB Conc 33.2 g/dL (31.6-35.5); Mean Platelet Volume 9.9 fL (9.4-12.4); Monocytes # 0.8 K/mcL (0.0-1.3); Monocytes % 4.6 %; Neutrophils # 13.9 K/mcL (1.6-8.9); Platelet Count 434 K/mcL (140-400); Red Blood Count 3.31 M/mcL (4.19-5.50); Red Cell Distribution Width 18.2 % (11.5-14.5)
[2016-07-16 04:43] LABS: BUN/Creatinine Ratio 35 (6-26); Blood Urea Nitrogen 23 mg/dL (8-26); Calcium 7.9 mg/dL (8.6-10.8); Carbon Dioxide 23 mEq/L (19-29); Chloride 107 mEq/L (98-109); Glucose 108 mg/dL (70-99); Osmolality,Calculated 288 (280-300); Potassium 3.7 mEq/L (3.5-4.5); Sodium 137 mEq/L (136-145); eGFR For African Americans > 60 (> 60); eGFR For Non-African Americans > 60 (> 60)
[2016-07-16 04:49] LABS: Mean Corpuscular Volume 78.2 fL (83.0-100.0)
[2016-07-16] MEDS: Ketorolac 15 MG/ML VIAL IVP SCH ×2 (05:32→11:31)
[2016-07-16] MEDS ORDERED: *HR* Enoxaparin 40 MG/0.4 ML SYRINGE SQ SCH (07:00)
[2016-07-16 07:43] LABS: MMA (VIT B12 STATUS) 0.56 umol/L (0.00-0.40)
[2016-07-16] MEDS: *HR* Metoprolol 5 MG/5 ML VIAL IVP SCH ×3 (07:51→23:58)
[2016-07-16] MEDS: Piperacillin/Tazobactam 3.375 GM in D5% in Water (Mini-Bag+) 100 ML IVPB SCH ×3 (07:52→23:58)
[2016-07-16] MEDS ORDERED: Nicotine 21 MG PATCH.TD24 TD SCH (09:00)
[2016-07-16] MEDS ORDERED: Pantoprazole 40 MG VIAL IVP SCH ×2 (09:00)
--- NOTE | 2016-07-16 09:09 | General Surgery Progress Note ---
Date of Encounter: 07/16/16 Time of Encounter: 08:20 - Assessment and Plan (1) Perforated appendicitis Current Visit: Yes Status: Acute The patient has had exploratory laparotomy small bowel resection and appendectomy for complex phlegmon associated with perforated appendicitis. He has an expected postoperative ileus. We will continue nasogastric tube drainage as well as nutritional support. We will await onset of bowel function to remove the nasogastric tube. Subjective Narrative: The patient is resting comfortably. He underwent exploratory laparotomy and appendectomy as well as small bowel resection for complex phlegmon associated with perforated appendicitis. Today he has no bowel sounds whatsoever and an expected postoperative ileus. Nasogastric tube is in place and functioning. Today his lungs are clear to auscultation and he seems to be progressing well. At this point he has not expected postoperative ileus, I would maintain the nasogastric tube as well as nutritional support and continue supportive care. Await bowel function. Objective Vital Signs - Last 8 Hours Temp Pulse Resp BP Pulse Ox 07/16/16 07:21 98.5 F 85 18 131/84 96 07/16/16 05:00 87 16 134/85 96 07/16/16 04:00 82 07/16/16 03:41 16 144/93 92 L 07/16/16 03:00 82 14 144/93 93 L Intake and Output 07/15/16 07/16/16 07/16/16 23:59 07:59 15:59 Intake Total 100 / 100 100 / 100 Output Total 500 / 500 700 / 700 200 / 200 Balance -400 / -400 -600 / -600 -200 / -200 Intake: IV Fluids 100 / 100 100 / 100 Zosyn 3.375 GM In 100 / 100 100 / 100 Dextrose 5% (Minibag+) 100 ML 100 ML @ 25 mls/hr IVPB Q8HR [facility] Rx#: [id number] Oral 0 / 0 0 / 0 Output: Catheter 200 / 200 500 / 500 200 / 200 Gastric Drainage 300 / 300 200 / 200 Other: Blood Glucose* 110 - General physical appearance well developed, chronically ill - Respiratory normal expansion, normal respiratory effort, clear to percussion, clear to auscultation - Cardiovascular Cardiovascular exam: Present: RRR, no murmurs/rubs/gallops - Abdomen Additional Comments: No bowel sounds. Incision is intact. Nasogastric tube is functioning. - Incision Incision: Present: clean and dry - Neurologic normal coordination, normal sensation - Psychiatric oriented to time, oriented to person, oriented to place, speech is normal, memory intact - Labs 07/16/16 04:20 07/16/16 04:20 Diabetes panel 07/16/16 Range/Units 04:20 Sodium 137 (136-145) mEq/L Potassium 3.7 (3.5-4.5) mEq/L Chloride 107 (98-109) mEq/L Carbon Dioxide 23 (19-29) mEq/L BUN 23 (8-26) mg/dL Creatinine 0.65 L (0.72-1.25) mg/dL Glucose 108 H (70-99) mg/dL Calcium 7.9 L (8.6-10.8) mg/dL Calcium panel 07/16/16 Range/Units 04:20 Calcium 7.9 L (8.6-10.8) mg/dL Pituitary panel 07/16/16 Range/Units 04:20 Sodium 137 (136-145) mEq/L Potassium 3.7 (3.5-4.5) mEq/L Chloride 107 (98-109) mEq/L Carbon Dioxide 23 (19-29) mEq/L BUN 23 (8-26) mg/dL Creatinine 0.65 L (0.72-1.25) mg/dL Glucose 108 H (70-99) mg/dL Calcium 7.9 L (8.6-10.8) mg/dL Adrenal panel 07/16/16 Range/Units 04:20 Sodium 137 (136-145) mEq/L Potassium 3.7 (3.5-4.5) mEq/L Chloride 107 (98-109) mEq/L Carbon Dioxide 23 (19-29) mEq/L BUN 23 (8-26) mg/dL Creatinine 0.65 L (0.72-1.25) mg/dL Glucose 108 H (70-99) mg/dL Calcium 7.9 L (8.6-10.8) mg/dL - VTE Documentation of Mechanical Device: Intermittent pneumatic compression device Consult Discharge Plan - Plan Referrals: [facility] [Primary Care Provider] -
--- NOTE | 2016-07-16 09:12 | Pulmonology Progress Note ---
<Disha Sena - Last Filed: 07/16/16 09:10> Date of Encounter: 07/16/16 Time of Encounter: 07:30 Assessment and Plan (1) Perforated appendicitis Current Visit: Yes Status: Acute POD#3 s/p exploratory lap, SHANNON, repair of SB enterotomy by Dr. Boothe Awaiting return of bowel function TPN for nutritional support Will follow surgery recommendations Hgb 8.6 today Wilde catheter is in place at this time (2) Enteritis Current Visit: Yes Status: Acute Continue with conservative measures NPO with NG to LIWS Supportive care/pain control Receiving TPN for nutritional support Will follow surgery recommendations (3) Sepsis Current Visit: Yes Status: Acute Pt with tachypnea, tachycradia, and leukocytosis on admission, meeting sepsis criteria Likely due to intra-abdominal etiology Pt had exploratory lap demonstrating a perforated appendix Blood and stool cultures were negative On Zosyn for antibiotic coverage at this time. (4) HCAP (healthcare-associated pneumonia) Current Visit: Yes Status: Acute CT abd/pelvis 07/08 deonstrated bibasilar airspace consolidation with small bilateral pleural effusions concerning for pneumonia Possible HCAP vs. atelectasis Blood and stool cultures negative Pt on NC for O2 support Continue Zosyn, source of infection more likely intra-abdominal rather than HCAP (5) COPD (chronic obstructive pulmonary disease) Current Visit: No Status: Acute On 3L NC at O2 sat:96% Scheduled breathing treatments (6) Hepatitis C Current Visit: No Status: Chronic (7) DVT prophylaxis Current Visit: No Status: Acute Lovenox 40mg SQ daily Subjective Principal diagnosis: Sepsis Interval history: Pt reports he is feeling better this morning, although he continues to have some abdominal pain. He denies any chest pain or shortness of breath at this time. He denies any flatus or bowel movements since surgery. Afebrile over night. Objective PUL Vital signs: Last Vital Signs Temp 98.5 F 07/16/16 07:21 Pulse 85 07/16/16 07:21 Resp 18 07/16/16 07:21 BP 131/84 07/16/16 07:21 Pulse Ox 96 07/16/16 07:21 General appearance: no acute distress, other (Catheter and NGT in place) Eyes: nonicteric ENT: oropharynx moist Neck: supple Effort: normal Auscultation: bilateral: rhonchi Cardiovascular: regular rate and rhythm Gastrointestinal: absent bowel sounds, tender (Expected post-operative tenderness), other (Incision clean/intact, scant amount of bloody drainage) Extremities: no cyanosis, no edema, pink and warm, other (Capillary refill normal) Musculoskeletal: no deformities non-focal exam mood appropriate, affect normal Results - Laboratory Findings CBC and BMP: 07/16/16 04:20 07/16/16 04:20 ABG ABG pH 7.41 pH Units (7.32-7.45) 07/14/16 02:38 ABG pCO2 42 mmHg (35-45) 07/14/16 02:38 ABG pO2 126 mmHg (85-104) H 07/14/16 02:38 ABG O2 Saturation 99 % (95-98) H 07/14/16 02:38 PT/INR, D-dimer PT 13.4 Seconds (9.4-12.1) H 07/10/16 05:21 Abnormal lab findings: Abnormal lab results WBC 17.8 K/mcL (4.3-11.1) H 07/16/16 04:20 RBC 3.31 M/mcL (4.19-5.50) L 07/16/16 04:20 Hgb 8.6 g/dL (12.9-16.9) L 07/16/16 04:20 Hct 25.9 % (37.5-50.1) L 07/16/16 04:20 MCV 78.2 fL (83.0-100.0) L 07/16/16 04:20 MCH 26.0 pg (28.0-33.3) L 07/16/16 04:20 RDW 18.2 % (11.5-14.5) H 07/16/16 04:20 Plt Count 434 K/mcL (140-400) H 07/16/16 04:20 Band Neutrophils % 6.0 % (0-4) H 07/14/16 03:40 Neutrophils # 13.9 K/mcL (1.6-8.9) H 07/16/16 04:20 Reactive Lymphocytes Present (Not Present) A 07/12/16 03:50 Toxic Granulation Present (Not Present) A 07/15/16 04:10 Toxic Vacuolation Present (Not Present) A 07/12/16 03:50 Large Platelets Present (Not Present) A 07/15/16 04:10 Polychromasia 1+ (Not Present) A 07/13/16 04:08 Hypochromasia Present (Not Present) A 07/15/16 04:10 Anisocytosis 1+ (Not Present) A 07/15/16 04:10 Microcytosis Present (Not Present) A 07/15/16 04:10 PT 13.4 Seconds (9.4-12.1) H 07/10/16 05:21 ABG pO2 126 mmHg (85-104) H 07/14/16 02:38 ABG Total CO2 27.9 mEq/L (20-26) H 07/14/16 02:38 ABG O2 Saturation 99 % (95-98) H 07/14/16 02:38 VBG pO2 74 mmHg (25-40) H 07/10/16 05:21 VBG HCO3 27.3 mEq/L (21-27) H 07/10/16 05:21 Creatinine 0.65 mg/dL (0.72-1.25) L 07/16/16 04:20 BUN/Creatinine Ratio 35 (6-26) H 07/16/16 04:20 Glucose 108 mg/dL (70-99) H 07/16/16 04:20 POC Glucose 108 (58-89) H 07/16/16 08:05 Calcium 7.9 mg/dL (8.6-10.8) L 07/16/16 04:20 Ionized Calcium 1.08 mmol/L (1.15-1.35) L 07/14/16 03:40 Iron 15 mcg/dL (65-175) L 07/13/16 04:08 % Saturation 6 % (20-55) L 07/13/16 04:08 Albumin 2.0 g/dL (3.5-5.0) L 07/14/16 03:40 Globulin 4.2 g/dL (2.4-3.5) H 07/14/16 03:40 Albumin/Globulin Ratio 0.5 (1.1-2.2) L 07/14/16 03:40 Prealbumin 6.0 mg/dL (18.0-45.0) L 07/15/16 04:10 Methylmalonic Acid 0.56 umol/L (0.00-0.40) H 07/13/16 04:08 Folate 6.4 ng/mL (7.0-31.4) L 07/08/16 12:07 Urine Bilirubin Small (Negative) H 07/07/16 05:40 - Microbiology Findings Microbiology Findings: Microbiology, Last 48 Hours 07/12/16 09:23 Blood Culture - Preliminary Peripheral Venipuncture No growth. - Clinical Findings Intake & Output: Intake & Output 07/15/16 07/16/16 07/16/16 23:59 07:59 15:59 Intake Total 100 / 100 100 / 100 Output Total 500 / 500 700 / 700 200 / 200 Balance -400 / -400 -600 / -600 -200 / -200 - VTE Documentation of Mechanical Device: Intermittent pneumatic compression device Consult Discharge Plan - Plan [facility]errals: [facility]Primary Care Provider[facility] - <Denzel Park - Last Filed: 07/16/16 09:31> Date of Encounter: 07/16/16 Objective PUL Vital signs: Last Vital Signs Temp 98.5 F 07/16/16 07:21 Pulse 80 07/16/16 09:00 Resp 16 07/16/16 09:00 BP 150/92 07/16/16 09:00 Pulse Ox 93 L 07/16/16 09:00 Results - Laboratory Findings CBC and BMP: 07/16/16 04:20 07/16/16 04:20 ABG ABG pH 7.41 pH Units (7.32-7.45) 07/14/16 02:38 ABG pCO2 42 mmHg (35-45) 07/14/16 02:38 ABG pO2 126 mmHg (85-104) H 07/14/16 02:38 ABG O2 Saturation 99 % (95-98) H 07/14/16 02:38 PT/INR, D-dimer PT 13.4 Seconds (9.4-12.1) H 07/10/16 05:21 Abnormal lab findings: Abnormal lab results WBC 17.8 K/mcL (4.3-11.1) H 07/16/16 04:20 RBC 3.31 M/mcL (4.19-5.50) L 07/16/16 04:20 Hgb 8.6 g/dL (12.9-16.9) L 07/16/16 04:20 Hct 25.9 % (37.5-50.1) L 07/16/16 04:20 MCV 78.2 fL (83.0-100.0) L 07/16/16 04:20 MCH 26.0 pg (28.0-33.3) L 07/16/16 04:20 RDW 18.2 % (11.5-14.5) H 07/16/16 04:20 Plt Count 434 K/mcL (140-400) H 07/16/16 04:20 Band Neutrophils % 6.0 % (0-4) H 07/14/16 03:40 Neutrophils # 13.9 K/mcL (1.6-8.9) H 07/16/16 04:20 Reactive Lymphocytes Present (Not Present) A 07/12/16 03:50 Toxic Granulation Present (Not Present) A 07/15/16 04:10 Toxic Vacuolation Present (Not Present) A 07/12/16 03:50 Large Platelets Present (Not Present) A 07/15/16 04:10 Polychromasia 1+ (Not Present) A 07/13/16 04:08 Hypochromasia Present (Not Present) A 07/15/16 04:10 Anisocytosis 1+ (Not Present) A 07/15/16 04:10 Microcytosis Present (Not Present) A 07/15/16 04:10 PT 13.4 Seconds (9.4-12.1) H 07/10/16 05:21 ABG pO2 126 mmHg (85-104) H 07/14/16 02:38 ABG Total CO2 27.9 mEq/L (20-26) H 07/14/16 02:38 ABG O2 Saturation 99 % (95-98) H 07/14/16 02:38 VBG pO2 74 mmHg (25-40) H 07/10/16 05:21 VBG HCO3 27.3 mEq/L (21-27) H 07/10/16 05:21 Creatinine 0.65 mg/dL (0.72-1.25) L 07/16/16 04:20 BUN/Creatinine Ratio 35 (6-26) H 07/16/16 04:20 Glucose 108 mg/dL (70-99) H 07/16/16 04:20 POC Glucose 108 (58-89) H 07/16/16 08:05 Calcium 7.9 mg/dL (8.6-10.8) L 07/16/16 04:20 Ionized Calcium 1.08 mmol/L (1.15-1.35) L 07/14/16 03:40 Iron 15 mcg/dL (65-175) L 07/13/16 04:08 % Saturation 6 % (20-55) L 07/13/16 04:08 Albumin 2.0 g/dL (3.5-5.0) L 07/14/16 03:40 Globulin 4.2 g/dL (2.4-3.5) H 07/14/16 03:40 Albumin/Globulin Ratio 0.5 (1.1-2.2) L 07/14/16 03:40 Prealbumin 6.0 mg/dL (18.0-45.0) L 07/15/16 04:10 Methylmalonic Acid 0.56 umol/L (0.00-0.40) H 07/13/16 04:08 Folate 6.4 ng/mL (7.0-31.4) L 07/08/16 12:07 Urine Bilirubin Small (Negative) H 07/07/16 05:40 - Microbiology Findings Microbiology Findings: Microbiology, Last 48 Hours 07/12/16 09:23 Blood Culture - Preliminary Peripheral Venipuncture No growth. - Clinical Findings Intake & Output: Intake & Output 07/15/16 07/16/16 07/16/16 23:59 07:59 15:59 Intake Total 100 / 100 100 / 100 Output Total 500 / 500 700 / 700 200 / 200 Balance -400 / -400 -600 / -600 -200 / -200 - Attending Attestation I examined this patient and my medical decision-making was reviewed with the REPORT WRITER/PA/Advanced Practice Nurse/Resident Physician. I agree with the documented findings, disposition and treatment plan as described except to the extent set forth below. Patient seen and examined. Labs, radiology, chart personally reviewed. Agree with resident's history and physical, assessment, plan with following comments: STAFFING ADMINISTRATOR: Patient follows commands, Pulmonary: Acceptable oxygenation and ventilation. Continue bronchodilators Cardiovascular: stable GI: Postsurgical and bowel sounds hypoactive. Continue TPN and patient needs to mobilize. Surgery follow-up Heme: DVT prophylaxis per routine ID: Continue antibiotic and plan to de-escalation Renal; urine out put and renal funtion reviewed Endorcine: blood glucose is monitored Lines: all lines checked and no evidence of infections Skin: skin care to prevent pressure ulcers per nursing routine care Patient awaiting for bed to be transferred to the floor.
[2016-07-16] MEDS ORDERED: MVI IV SCH ×4 (12:40→17:00)
[2016-07-16] MEDS ORDERED: CLINIMIX E IV SCH ×4 (12:40→17:00)
[2016-07-16] MEDS ORDERED: Acetaminophen 325 MG TABLET PO PRN (12:40)
[2016-07-16] MEDS ORDERED: AMINO ACIDS 10% IV SCH ×4 (12:40→17:00)
[2016-07-16] MEDS ORDERED: D10% in Water 500 ML IV PRN (12:40)
[2016-07-16] MEDS ORDERED: Naloxone 0.4 MG/ML INJ IVP PRN (12:40)
[2016-07-16] MEDS ORDERED: [UNRECOGNIZED DRUG - OTHER] IV SCH ×4 (12:40→17:00)
[2016-07-16] MEDS ORDERED: Clinimix E 5%-20% SOLUTION 2,000 ML with MVI, adult with vitamin K 10 ML IV SCH (17:00)
[2016-07-16] MEDS ORDERED: Ketorolac 15 MG/ML VIAL IVP SCH (18:00)
[2016-07-16] MEDS: *HR* LORazepam 2 MG/ML VIAL IVP PRN (21:23)
[2016-07-17] MEDS: *HR* HYDROmorphone (PF) 1 MG/ML SYRINGE IVP PRN ×7 (01:12→23:10)
[2016-07-17] MEDS: Ipratropium/Albuterol Neb 3 ML IH SCH ×4 (05:00→21:47)
[2016-07-17] MEDS: *HR* Enoxaparin 40 MG/0.4 ML SYRINGE SQ SCH (05:25)
[2016-07-17] MEDS: *HR* LORazepam 2 MG/ML VIAL IVP PRN (05:25)
[2016-07-17 05:26] LABS: Basophils # 0.1 K/mcL (0.0-0.2); Basophils % 0.5 %; Eosinophils # 0.5 K/mcL (0.0-0.6); Eosinophils % 2.2 %; Hematocrit 26.1 % (37.5-50.1); Hemoglobin 8.5 g/dL (12.9-16.9); Immature Granulocytes % 1.7 % (0-4); Lymphocytes # 2.2 K/mcL (0.6-4.6); Lymphocytes % 10.2 %; Mean Corpuscular HGB Conc 32.6 g/dL (31.6-35.5); Mean Corpuscular Hemoglobin 25.4 pg (28.0-33.3); Mean Corpuscular Volume 78.1 fL (83.0-100.0); Mean Platelet Volume 9.8 fL (9.4-12.4); Monocytes # 1.1 K/mcL (0.0-1.3); Monocytes % 5.1 %; Neutrophils # 17.5 K/mcL (1.6-8.9); Platelet Count 501 K/mcL (140-400); Red Blood Count 3.34 M/mcL (4.19-5.50); Red Cell Distribution Width 17.9 % (11.5-14.5); Segmented Neutrophils % 80.3 %
[2016-07-17] MEDS ORDERED: *HR* Metoprolol 5 MG/5 ML VIAL IVP ONE ×2 (06:01→06:05)
[2016-07-17] MEDS ORDERED: Lacri-Lube 3.5 GM TUBE BOTH EYES PRN (06:58)
[2016-07-17] MEDS ORDERED: diazePAM 10 MG/2 ML SYRINGE IVP PRN ×5 (07:03)
[2016-07-17] MEDS: Piperacillin/Tazobactam 3.375 GM in D5% in Water (Mini-Bag+) 100 ML IVPB SCH ×2 (07:30→15:45)
[2016-07-17] MEDS: Pantoprazole 40 MG VIAL IVP SCH (07:30)
[2016-07-17] MEDS: *HR* Metoprolol 5 MG/5 ML VIAL IVP SCH ×2 (07:30→15:45)
[2016-07-17] MEDS: Nicotine 21 MG PATCH.TD24 TD SCH (07:31)
[2016-07-17] MEDS: Dexmedetomidine HCl 400 MCG/100 ML MLS IVC SCH (07:36)
--- NOTE | 2016-07-17 07:36 | General Surgery Progress Note ---
Date of Encounter: 07/17/16 Time of Encounter: 07:40 - Assessment and Plan (1) Perforated appendicitis Current Visit: Yes Status: Acute The patient has had exploratory laparotomy small bowel resection and appendectomy for complex phlegmon associated with perforated appendicitis. He has an expected postoperative ileus. We will continue nasogastric tube drainage as well as nutritional support. We will await onset of bowel function to remove the nasogastric tube. 07/17/2016;. The patient developed acute disorientation last evening. He is evaluated by the hospitalist service. He has worsening leukocytosis at 21,000. His abdomen is soft and quiet with an expected postoperative ileus he is currently on Precedex drip. We will continue TPN, aggressive supportive care. He will require 24-hour sitter Subjective Narrative: The patient had significant change in mental status. He has had significant change in his vital signs. Last evening the patient became progressively agitated and developed dyspnea and tachypnea he was evaluated by the hospitalist service. He worsened with Ativan therapy he is now on Precedex infusion. The patient became agitated and combative and needed to be physically restrained to prevent dislodgment of central line and to protect the recent abdominal surgery the patient is now on Precedex and is calm but not oriented. It is noted that his heart rate became progressively tachycardic during this episode to 124. On evaluation his abdomen is soft but silent lung sounds are present. He is clear on the left with some rhonchi on the right. He will require 24 hour sitter. It is noted that he had increasing his leukocytosis. We will continue supportive care. Objective Vital Signs - Last 8 Hours Temp Pulse Resp BP Pulse Ox 07/17/16 04:49 98.0 F 126 22 150/84 96 07/17/16 01:11 97.7 F 100 18 140/90 97 Intake and Output 07/16/16 07/16/16 07/17/16 15:59 23:59 07:59 Intake Total 0 / 0 100 / 100 0 / 0 Output Total 600 / 600 1225 / 1225 1300 / 1300 Balance -600 / -600 -1125 / -1125 -1300 / -1300 Intake: IV Fluids 100 / 100 Zosyn 3.375 GM In 100 / 100 Dextrose 5% (Minibag+) 100 ML 100 ML @ 25 mls/hr IVPB Q8HR [facility] Rx#: [id number] Oral 0 / 0 0 / 0 0 / 0 Output: Gastric Tube Lavage 0 / 0 0 / 0 0 / 0 Amount Left Nare 0 / 0 0 / 0 0 / 0 Other 200 / 200 Catheter 400 / 400 1150 / 1150 1000 / 1000 Gastric Drainage 75 / 75 300 / 300 Other: Meal NPO Dinner Percent of Meal Consumed 0% 0% Stool Size Moderate Stool Consistency loose Stool Color Brown # Bowel Movements 1 Weight 95.1 kg Blood Glucose* 94 120 110 Patient Weight 07/17/16 23:59 Weight 95.1 kg - General physical appearance chronically ill, other (Disoriented) - Respiratory other (Breath sounds clear on the left) crackles: right, wheezing: right - Cardiovascular Cardiovascular exam: Present: RRR, tachycardia, no murmurs/rubs/gallops - Abdomen Abdomen: Present: soft (Incision is intact and there are no bowel sounds.) - Incision Incision: Present: clean and dry - Psychiatric other (The patient is currently disoriented to person place and time. He is on Precedex drip.) - Labs 07/17/16 04:48 07/16/16 04:20 - VTE Documentation of Mechanical Device: Intermittent pneumatic compression device Consult Discharge Plan - Plan [facility]errals: [facility] [Primary Care Provider] -
[2016-07-17] MEDS: Thiamine (B-1) 100 MG in D5% in Water 50 ML IVPB SCH (08:00)
--- NOTE | 2016-07-17 08:45 | Internal Med Progress Note ---
Date of Encounter: 07/17/16 Time of Encounter: 08:42 - Assessment and plan (1) Acute encephalopathy Current Visit: Yes Status: Acute Assessment and plan: Likely related to complicated surgery, prolonged hospitalization and medication related. Less likely alcohol withdrawal as today is hospital day 11. Continue IV Precedex drip for now; continue one-on-one sitter for safety. Avoid further sedatives/hypnotics. (2) Perforated appendicitis Current Visit: Yes Status: Acute Assessment and plan: Patient likely has sepsis from intra-abdominal pathology due to perforated appendicitis and enteritis. Status post appendectomy, exploratory laparoscopy with small bowel enterotomy. Continue IV Zosyn. Will discuss patient's progress with surgery as he is noted to have worsening leukocytosis and tachycardia today with persistent absent/decreased bowel sounds. Recommend to continue nasogastric tube to low intermittent wall suction per surgery, noted to have around 300cc gastric output per shift. Continue bowel rest and total parenteral nutrition. (3) Sepsis Current Visit: Yes Status: Acute Assessment and plan: Less likely healthcare associated pneumonia, more likely intra-abdominal pathology. No fevers but noted to have worsening leukocytosis and tachycardia today. Review of previous records show that patient was tachycardic in the 110s during this hospitalization. Does not seem to be volume depleted and has appropriate urine output. We will increase IV metoprolol to 5 mg every 8 hours and start gentle IV fluid hydration. Monitor and replete electrolytes. High risk patient, risk of worsening sepsis and the need for repeat surgery. Qualifiers: Sepsis type: sepsis due to unspecified organism Qualified Code(s): A41.9 - Sepsis, unspecified organism (4) HCAP (healthcare-associated pneumonia) Current Visit: Yes Status: Acute Assessment and plan: Plan as above. Continue IV antibiotics and supplemental oxygen as needed. Patient's respiratory requirements have significantly improved since his ICU stay. (5) Respiratory failure Current Visit: Yes Status: Acute Assessment and plan: Improving. Currently requiring 2 L/m nasal cannula supplemental oxygen. Qualifiers: Chronicity: acute Respiratory failure complication: hypoxia Qualified Code(s): J96.01 - Acute respiratory failure with hypoxia (6) COPD (chronic obstructive pulmonary disease) Current Visit: Yes Status: Chronic Assessment and plan: Not noted to be in acute exacerbation. Continue when necessary bronchodilators and supplemental oxygen. Qualifiers: COPD type: unspecified COPD Qualified Code(s): J44.9 - Chronic obstructive pulmonary disease, unspecified (7) Hepatitis C Current Visit: Yes Status: Chronic Qualifiers: Viral hepatitis chronicity: chronic Hepatic coma status: without hepatic coma Qualified Code(s): B18.2 - Chronic viral hepatitis C (8) Tobacco abuse Current Visit: Yes Status: Chronic Assessment and plan: Continue nicotine transdermal patch. Patient not receptive to smoking cessation counseling at this time due to mental status changes. - Subjective Interval history: Patient was noted to have become extremely confused and agitated overnight, has been started on Precedex drip and is currently on one-on-one sitter for safety and to prevent him from pulling out medical devices and lines. Able to state his name in a muffled voice but otherwise unable to answer any other questions. Noted to be reaching out for things and trying to pull out his leads and devices. Does not seem to be in pain or distress. - Constitutional Vitals: Temp Pulse Resp BP Pulse Ox 98.5 F 124 24 144/91 96 07/17/16 07:28 07/17/16 07:28 07/17/16 07:28 07/17/16 07:28 07/17/16 07:28 General appearance: Present: A&O X 0 - Head Head exam: Present: atraumatic, normocephalic - Neck Neck exam general surgery: Present: supple, trachea midline. Absent: lymphadenopathy - Respiratory Respiratory exam: Present: CTAB. Absent: accessory muscle use, rales, rhonchi, wheezes - Cardiovascular Cardiovascular exam: Present: RRR, +S1, +S2, tachycardia. Absent: diastolic murmur, gallop, rubs, systolic murmur - GI/Abdominal GI/Abdominal exam: Present: diminished bowel sounds, soft (Midline surgical incision with adina intact, postop wound noted to be clean and dry, with minimal surrounding swelling and induration. Nondistended and nontender abdomen.), no peritoneal signs. Absent: distended, tenderness - Extremities Exam Extremities exam: Present: full ROM, warm, radial pulses palpable and symetrical. Absent: calf tenderness, cyanotic, pedal edema - Neurological Exam Neurological exam: Present: altered (Confused and disoriented), CN II-XII intact , no focal deficits (Spontaneously moves all 4 extremities, further examination cannot be completed). Absent: pronater drift, facial droop, speech deficit - Skin Skin exam: Present: dry, intact Internal Medicine: Result - Labs CBC & Chem 7: 07/17/16 04:48 07/16/16 04:20 Labs: Short CBC 07/17/16 Range/Units 04:48 WBC 21.8 H (4.3-11.1) K/mcL Hgb 8.5 L (12.9-16.9) g/dL Hct 26.1 L (37.5-50.1) % Plt Count 501 H (140-400) K/mcL Neutrophils # 17.5 H (1.6-8.9) K/mcL - ABG Interpretation ABG results: ABG ABG pH 7.41 pH Units (7.32-7.45) 07/14/16 02:38 ABG pCO2 42 mmHg (35-45) 07/14/16 02:38 ABG pO2 126 mmHg (85-104) H 07/14/16 02:38 ABG O2 Saturation 99 % (95-98) H 07/14/16 02:38 PT/INR, D-dimer PT 13.4 Seconds (9.4-12.1) H 07/10/16 05:21 - Impressions Impressions KUB X-Ray 07/17/16 04:33 IMPRESSION: Tip of the enteric tube is seen overlying the proximal body of the stomach. The side hole is not evaluated. Repeat imaging is recommended. D/ / Isabella Paniagua MD / Isabella Paniagua MD Interpreting Provider: Isabella Paniagua MD X-Ray 07/17/16 07:02 IMPRESSION: Nasogastric tube tip overlies the left upper quadrant, likely in the gastric fundus. The side hole appears to lie just distal to the gastroesophageal junction. D/ / Ubaldo Jewell MD / Ubaldo Jewell MD Interpreting Provider: Ubaldo Jewell MD - VTE Documentation of Mechanical Device: Intermittent pneumatic compression device Consult Discharge Plan - Plan Referrals: [facility] [Primary Care Provider] -
[2016-07-17] MEDS: 0.9 % Sodium Chloride 1,000 ML IVC SCH (10:00)
[2016-07-17] MEDS ORDERED: OLANZapine 10 MG VIAL IM SCH ×2 (10:15→21:00)
[2016-07-17] MEDS ORDERED: MVI IV SCH ×3 (17:00)
[2016-07-17] MEDS ORDERED: CLINIMIX E IV SCH ×3 (17:00)
[2016-07-17] MEDS ORDERED: [UNRECOGNIZED DRUG - OTHER] IV SCH ×3 (17:00)
[2016-07-17] MEDS ORDERED: AMINO ACIDS 10% IV SCH ×3 (17:00)
[2016-07-18] MEDS: Piperacillin/Tazobactam 3.375 GM in D5% in Water (Mini-Bag+) 100 ML IVPB SCH ×3 (00:02→16:27)
[2016-07-18] MEDS: *HR* Metoprolol 5 MG/5 ML VIAL IVP SCH ×3 (00:06→16:27)
[2016-07-18] MEDS: Dexmedetomidine HCl 400 MCG/100 ML MLS IVC SCH ×2 (00:11→06:16)
[2016-07-18] MEDS: *HR* HYDROmorphone (PF) 1 MG/ML SYRINGE IVP PRN ×6 (02:44→22:21)
[2016-07-18] MEDS: 0.9 % Sodium Chloride 1,000 ML IVC SCH (03:18)
[2016-07-18] MEDS: Ipratropium/Albuterol Neb 3 ML IH SCH ×4 (03:41→22:16)
[2016-07-18 04:01] LABS: BUN/Creatinine Ratio 35 (6-26); Blood Urea Nitrogen 23 mg/dL (8-26); Calcium 7.8 mg/dL (8.6-10.8); Carbon Dioxide 19 mEq/L (19-29); Chloride 99 mEq/L (98-109); Glucose 408 mg/dL (70-99); Magnesium 2.6 mg/dL (1.6-2.6); Osmolality,Calculated 283 (280-300); eGFR For African Americans > 60 (> 60); eGFR For Non-African Americans > 60 (> 60)
[2016-07-18 04:02] LABS: Sodium 126 mEq/L (136-145)
[2016-07-18 04:39] LABS: Basophils # 0.1 K/mcL (0.0-0.2); Basophils % 0.5 %
[2016-07-18 05:26] LABS: Platelet Estimate Normal (Normal)
[2016-07-18 05:27] LABS: Anisocytosis 1+ (Not Present); Poikilocytosis 1+ (Not Present); Stomatocytes 1+ (Not Present); Target Cells 1+ (Not Present)
[2016-07-18 05:31] LABS: Immature Platelets 4.2 % (1.1-6.1)
[2016-07-18 05:43] LABS: Eosinophils # 0.3 K/mcL (0.0-0.6); Hemoglobin 8.7 g/dL (12.9-16.9); Lymphocytes # 1.6 K/mcL (0.6-4.6); Monocytes # 0.9 K/mcL (0.0-1.3); Neutrophils # 9.6 K/mcL (1.6-8.9); Red Blood Count 3.38 M/mcL (4.19-5.50)
[2016-07-18 05:44] LABS: Hematocrit 26.6 % (37.5-50.1); Mean Corpuscular HGB Conc 32.7 g/dL (31.6-35.5); Mean Corpuscular Hemoglobin 25.7 pg (28.0-33.3); Mean Corpuscular Volume 78.7 fL (83.0-100.0); Platelet Count 326 K/mcL (140-400); Red Cell Distribution Width 18.1 % (11.5-14.5); Segmented Neutrophils % 75.8 %
[2016-07-18 05:45] LABS: Immature Granulocytes % 2.1 % (0-4); Lymphocytes % 12.8 %; Monocytes % 6.8 %
[2016-07-18] MEDS: *HR* Enoxaparin 40 MG/0.4 ML SYRINGE SQ SCH (06:06)
--- NOTE | 2016-07-18 08:59 | Internal Med Progress Note ---
Date of Encounter: 07/18/16 Time of Encounter: 08:56 - Assessment and plan (1) Hyponatremia Current Visit: Yes Status: Acute Assessment and plan: Could be related to total parenteral nutrition and IV hydration with normal saline. We will stop IV hydration for now and discuss with dietitian regarding changing electrolyte concentration in TPN. (2) Hyperkalemia Current Visit: Yes Status: Acute Assessment and plan: Repeat serum potassium and discuss with dietitian regarding changing electrolyte concentration in TPN. (3) Acute encephalopathy Current Visit: Yes Status: Acute Assessment and plan: Likely related to complicated surgery, prolonged hospitalization and medication related- noted to be on antipsychotics and antidepressants at home which had to be held due to NG tube to suction. Improving; plan to wean off Precedex drip today; continue one-on-one sitter for safety. Avoid further sedatives/ hypnotics. (4) Perforated appendicitis Current Visit: Yes Status: Acute Assessment and plan: Patient likely has sepsis from intra-abdominal pathology due to perforated appendicitis and enteritis. Status post appendectomy, exploratory laparoscopy with small bowel enterotomy. Improving leukocytosis and tachycardia; no fever; Continue IV Zosyn. Continues to have decreased bowel sounds. continue nasogastric tube to low intermittent wall suction per surgery, noted to have around 200cc gastric output per shift. Continue bowel rest and total parenteral nutrition. (5) Sepsis Current Visit: Yes Status: Acute Assessment and plan: Less likely healthcare associated pneumonia, more likely intra-abdominal pathology. Overall clinical status noted to be improving today. Continue IV antibiotics and postoperative care as above. We will stop IV hydration. High risk patient, risk of worsening sepsis and the need for repeat surgery. Qualifiers: Sepsis type: sepsis due to unspecified organism Qualified Code(s): A41.9 - Sepsis, unspecified organism (6) HCAP (healthcare-associated pneumonia) Current Visit: Yes Status: Acute Assessment and plan: Plan as above. Continue IV antibiotics and supplemental oxygen as needed. Patient's respiratory requirements have significantly improved since his ICU stay. (7) Respiratory failure Current Visit: Yes Status: Acute Assessment and plan: Improving. Currently requiring 2 L/m nasal cannula supplemental oxygen. Qualifiers: Chronicity: acute Respiratory failure complication: hypoxia Qualified Code(s): J96.01 - Acute respiratory failure with hypoxia (8) COPD (chronic obstructive pulmonary disease) Current Visit: Yes Status: Chronic Assessment and plan: Not noted to be in acute exacerbation. Continue when necessary bronchodilators and supplemental oxygen. Qualifiers: COPD type: unspecified COPD Qualified Code(s): J44.9 - Chronic obstructive pulmonary disease, unspecified (9) Hepatitis C Current Visit: Yes Status: Chronic Qualifiers: Viral hepatitis chronicity: chronic Hepatic coma status: without hepatic coma Qualified Code(s): B18.2 - Chronic viral hepatitis C (10) Tobacco abuse Current Visit: Yes Status: Chronic - Subjective Interval history: Patient is noted to be much calmer today. Able to answer his name and knows that he is in the hospital but continues to have muffled and confused voice. Reports some abdominal pain at surgical site. Noted to have bowel movements. Continues to have around 200 mL of dark greenish gastric output each shift. Heart rate noted to be improved today. Continues on Precedex drip. - Constitutional Vitals: Temp Pulse Resp BP Pulse Ox 98.0 F 76 20 106/68 99 07/18/16 07:00 07/18/16 08:22 07/18/16 07:00 07/18/16 08:22 07/18/16 08:22 General appearance: Present: A&O X 2 - Head Head exam: Present: atraumatic, normocephalic - Neck Neck exam general surgery: Present: supple, trachea midline. Absent: lymphadenopathy Additional comments: left IJ CVC in place - Respiratory Respiratory exam: Present: CTAB (anterolaterally). Absent: accessory muscle use , rales, rhonchi, wheezes - Cardiovascular Cardiovascular exam: Present: RRR, +S1, +S2. Absent: diastolic murmur, gallop, rubs, systolic murmur - GI/Abdominal GI/Abdominal exam: Present: diminished bowel sounds, soft (mild tenderness at surgical site), no peritoneal signs. Absent: distended, tenderness Additional comments: lower midline surgical incision healing well, dry; adina intact; surrounding edema and erythema improved; - Extremities Exam Extremities exam: Present: full ROM, warm, radial pulses palpable and symetrical. Absent: calf tenderness, cyanotic, pedal edema - Neurological Exam Neurological exam: Present: altered (improving mentation), no focal deficits ( spontaneously moves all 4 extremities but has diffuse weakness). Absent: pronater drift, facial droop, speech deficit - Skin Skin exam: Present: dry, intact Internal Medicine: Result - Labs CBC & Chem 7: 07/18/16 03:37 07/18/16 03:37 Labs: Short CBC 07/18/16 Range/Units 03:37 WBC 12.6 H (4.3-11.1) K/mcL Hgb 8.7 L (12.9-16.9) g/dL Hct 26.6 L (37.5-50.1) % Plt Count 326 (140-400) K/mcL Neutrophils # 9.6 H (1.6-8.9) K/mcL BMP 07/18/16 03:37 Sodium 126 L D Potassium 5.0 H D Chloride 99 Carbon Dioxide 19 BUN 23 Creatinine 0.66 L Glucose 408 H Calcium 7.8 L - ABG Interpretation ABG results: ABG ABG pH 7.41 pH Units (7.32-7.45) 07/14/16 02:38 ABG pCO2 42 mmHg (35-45) 07/14/16 02:38 ABG pO2 126 mmHg (85-104) H 07/14/16 02:38 ABG O2 Saturation 99 % (95-98) H 07/14/16 02:38 PT/INR, D-dimer PT 13.4 Seconds (9.4-12.1) H 07/10/16 05:21 - VTE Documentation of Mechanical Device: Intermittent pneumatic compression device Consult Discharge Plan - Plan [facility]: [facility] Care Provider[facility] -
[2016-07-18] MEDS: Nicotine 21 MG PATCH.TD24 TD SCH (09:09)
[2016-07-18] MEDS: Thiamine (B-1) 100 MG in D5% in Water 50 ML IVPB SCH (09:09)
[2016-07-18] MEDS: Pantoprazole 40 MG VIAL IVP SCH (09:09)
--- NOTE | 2016-07-18 12:35 | General Surgery Progress Note ---
Date of Encounter: 07/18/16 Time of Encounter: 12:00 - Assessment and Plan (1) Perforated appendicitis Current Visit: Yes Status: Acute POD #5 exploratory lap, SHANNON, repair of SB enterotomy Remove NG tube Speech consult and swallow evaluation May have clear liquids with protein supplements if safe to swallow May restart PO meds if safe to swallow IV antibiotics- Zosyn TPN therapy Supportive care/pain control repeat am labs PT/OT daily Will continue to follow (2) HCAP (healthcare-associated pneumonia) Current Visit: Yes Status: Acute Management per pulmonary/medicine service Continue Zosyn per pulmonary recommendations (3) DVT prophylaxis Current Visit: Yes Status: Acute Continue Lovenox 40mg daily for DVT prophylaxis Subjective Patient reports: feels better, still having pain (surgical), bowel movement, afebrile, other (patient confused today; weaning precedex gtt) Objective Vital Signs - Last 8 Hours Temp Pulse Resp BP Pulse Ox 07/18/16 12:10 76 97/62 97 07/18/16 11:00 97.9 F 79 20 97/62 97 07/18/16 10:10 81 99/64 96 07/18/16 09:11 18 106/68 98 07/18/16 09:10 78 99/62 98 07/18/16 08:22 76 106/68 99 07/18/16 07:35 75 98/63 98 07/18/16 07:00 98.0 F 77 20 98/63 95 07/18/16 06:00 79 20 96/61 91 L 07/18/16 05:00 85 20 91/59 92 L Intake and Output 07/17/16 07/18/16 07/18/16 23:59 07:59 15:59 Intake Total 185 / 185 1450 / 1450 465 / 465 Output Total 950 / 950 1250 / 1250 500 / 500 Balance -765 / -765 200 / 200 -35 / -35 Intake: IV Fluids 185 / 185 1450 / 1450 465 / 465 0.9 % Sodium Chloride 1, 1000 / 1000 334 / 334 000 ML @ 60 mls/hr IVC . [id number] [facility] Rx#: [id number] PRECEDEX 400 mcg In 100 85 / 85 100 / 100 80 / 80 ml @ 0.2 MCG/KG/HR 4.755 mls/hr IVC .Q21H2M [facility] Rx #:[id number] Intralipid 20% 250 ML @ 250 / 250 21 mls/hr IVPB DAILY@1700 [facility] Rx#:[id number] Zosyn 3.375 GM In 100 / 100 100 / 100 Dextrose 5% (Minibag+) 100 ML 100 ML @ 25 mls/hr IVPB Q8HR [facility] Rx#: [id number] Vitamin B-1 100 MG In 51 / 51 Dextrose 5% 50 ML @ 50 mls/hr IVPB DAILY [facility] Rx# :[id number] Oral 0 / 0 0 / 0 Output: Urine 0 / 0 Gastric Tube Lavage 0 / 0 Amount Left Nare 0 / 0 Catheter 650 / 650 1000 / 1000 450 / 450 Gastric Drainage 300 / 300 250 / 250 50 / 50 Other: Meal Dinner Breakfast Percent of Meal Consumed 0% 0% Stool Size Small Small Stool Consistency loose loose Stool Color Brown Brown # Bowel Movements 1 1 Weight 94.3 kg Blood Glucose* 113 125 149 Patient Weight 07/18/16 23:59 Weight 94.3 kg - General physical appearance well developed, no distress, moderate pain, chronically ill - Eyes normal ocular movement - ENT dry mucosa, atraumatic, normocephalic - Neck Neck exam: trachea midline - Respiratory normal respiratory effort, clear to auscultation - Cardiovascular Cardiovascular exam: Present: RRR - Abdomen Abdomen: Present: bowel sounds present, soft, tender (expected post-operative tenderness) - Incision Incision: Present: clean and dry, intact - Neurologic CN 2-12 grossly intact - Musculoskeletal other (deconditioning noted) - Psychiatric oriented to person - Labs 07/18/16 03:37 07/18/16 09:55 Diabetes panel 07/18/16 07/18/16 Range/Units 03:37 09:55 Sodium 126 L D (136-145) mEq/L Potassium 5.0 H D 4.5 (3.5-4.5) mEq/L Chloride 99 (98-109) mEq/L Carbon Dioxide 19 (19-29) mEq/L BUN 23 (8-26) mg/dL Creatinine 0.66 L (0.72-1.25) mg/dL Glucose 408 H (70-99) mg/dL Calcium 7.8 L (8.6-10.8) mg/dL Calcium panel 07/18/16 Range/Units 03:37 Calcium 7.8 L (8.6-10.8) mg/dL Phosphorus 4.0 (2.3-4.7) mg/dL Pituitary panel 07/18/16 07/18/16 Range/Units 03:37 09:55 Sodium 126 L D (136-145) mEq/L Potassium 5.0 H D 4.5 (3.5-4.5) mEq/L Chloride 99 (98-109) mEq/L Carbon Dioxide 19 (19-29) mEq/L BUN 23 (8-26) mg/dL Creatinine 0.66 L (0.72-1.25) mg/dL Glucose 408 H (70-99) mg/dL Calcium 7.8 L (8.6-10.8) mg/dL Adrenal panel 07/18/16 07/18/16 Range/Units 03:37 09:55 Sodium 126 L D (136-145) mEq/L Potassium 5.0 H D 4.5 (3.5-4.5) mEq/L Chloride 99 (98-109) mEq/L Carbon Dioxide 19 (19-29) mEq/L BUN 23 (8-26) mg/dL Creatinine 0.66 L (0.72-1.25) mg/dL Glucose 408 H (70-99) mg/dL Calcium 7.8 L (8.6-10.8) mg/dL - VTE Documentation of Mechanical Device: Intermittent pneumatic compression device Consult Discharge Plan - Plan Referrals: ANGEL,PCP [Primary Care Provider] - 08/02/16 1:30 pm - Attending Attestation I examined this patient and my medical decision-making was reviewed with the SOUND RECORDING TECHNICIAN/PA/Advanced Practice Nurse/Resident Physician. I agree with the documented findings, disposition and treatment plan as described except to the extent set forth below.
[2016-07-18] MEDS: Ketorolac 30 MG/ML VIAL IVP PRN ×2 (16:08→22:20)
[2016-07-18 16:17] LABS: BUN/Creatinine Ratio 35 (6-26); Blood Urea Nitrogen 22 mg/dL (8-26); Calcium 7.9 mg/dL (8.6-10.8); Carbon Dioxide 21 mEq/L (19-29); Chloride 104 mEq/L (98-109); Glucose 88 mg/dL (70-99); Osmolality,Calculated 277 (280-300); Potassium 4.7 mEq/L (3.5-4.5); Sodium 132 mEq/L (136-145); eGFR For African Americans > 60 (> 60); eGFR For Non-African Americans > 60 (> 60)
[2016-07-18] MEDS: [UNRECOGNIZED DRUG - OTHER] IV SCH (17:36)
[2016-07-18] MEDS: AMINO ACIDS 10% IV SCH (17:36)
[2016-07-18] MEDS: MVI IV SCH (17:36)
[2016-07-18] MEDS: CLINIMIX E IV SCH (17:36)
[2016-07-19] MEDS: *HR* Metoprolol 5 MG/5 ML VIAL IVP SCH ×4 (00:25→23:42)
[2016-07-19] MEDS: Piperacillin/Tazobactam 3.375 GM in D5% in Water (Mini-Bag+) 100 ML IVPB SCH ×4 (00:26→23:42)
[2016-07-19] MEDS: Ipratropium/Albuterol Neb 3 ML IH SCH ×4 (04:30→22:35)
[2016-07-19 05:13] LABS: Basophils # 0.1 K/mcL (0.0-0.2); Basophils % 0.4 %; Eosinophils # 0.4 K/mcL (0.0-0.6); Eosinophils % 2.5 %; Hematocrit 18.6 % (37.5-50.1); Immature Granulocytes % 3.1 % (0-4); Lymphocytes # 2.1 K/mcL (0.6-4.6); Lymphocytes % 13.1 %; Mean Corpuscular HGB Conc 33.3 g/dL (31.6-35.5); Mean Corpuscular Hemoglobin 26.4 pg (28.0-33.3); Mean Corpuscular Volume 79.1 fL (83.0-100.0); Mean Platelet Volume 10.6 fL (9.4-12.4); Monocytes # 1.4 K/mcL (0.0-1.3); Monocytes % 8.5 %; Neutrophils # 11.7 K/mcL (1.6-8.9); Platelet Count 415 K/mcL (140-400); Red Blood Count 2.35 M/mcL (4.19-5.50); Red Cell Distribution Width 18.4 % (11.5-14.5); Segmented Neutrophils % 72.4 %
[2016-07-19 05:14] LABS: Hemoglobin 6.2 g/dL (12.9-16.9)
[2016-07-19 05:33] LABS: Blood Urea Nitrogen 20 mg/dL (8-26); Carbon Dioxide 21 mEq/L (19-29); Chloride 105 mEq/L (98-109); Potassium 4.3 mEq/L (3.5-4.5); Sodium 132 mEq/L (136-145)
[2016-07-19 05:34] LABS: BUN/Creatinine Ratio 32 (6-26); Calcium 7.8 mg/dL (8.6-10.8); Glucose 105 mg/dL (70-99); Magnesium 1.6 mg/dL (1.6-2.6); Osmolality,Calculated 277 (280-300); Phosphorous 3.7 mg/dL (2.3-4.7); eGFR For African Americans > 60 (> 60); eGFR For Non-African Americans > 60 (> 60)
[2016-07-19] MEDS: *HR* Enoxaparin 40 MG/0.4 ML SYRINGE SQ SCH (05:45)
[2016-07-19] MEDS: Ketorolac 30 MG/ML VIAL IVP PRN ×2 (05:45→13:18)
[2016-07-19] MEDS: Dexmedetomidine HCl 400 MCG/100 ML MLS IVC SCH (05:52)
[2016-07-19] MEDS: Pantoprazole 40 MG VIAL IVP SCH (08:37)
[2016-07-19] MEDS: Nicotine 21 MG PATCH.TD24 TD SCH (08:51)
[2016-07-19] MEDS: Thiamine (B-1) 100 MG in D5% in Water 50 ML IVPB SCH (10:03)
[2016-07-19] MEDS: *HR* HYDROmorphone (PF) 1 MG/ML SYRINGE IVP PRN ×3 (10:21→20:28)
[2016-07-19 12:04] LABS: Basophils # 0.1 K/mcL (0.0-0.2); Basophils % 0.5 %; Eosinophils # 0.3 K/mcL (0.0-0.6); Eosinophils % 1.9 %; Hematocrit 19.4 % (37.5-50.1); Hemoglobin 6.3 g/dL (12.9-16.9); Immature Granulocytes % 2.6 % (0-4); Immature Platelets 4.8 % (1.1-6.1); Lymphocytes # 1.9 K/mcL (0.6-4.6); Lymphocytes % 12.3 %; Mean Corpuscular HGB Conc 32.5 g/dL (31.6-35.5); Mean Corpuscular Hemoglobin 25.7 pg (28.0-33.3); Mean Corpuscular Volume 79.2 fL (83.0-100.0); Mean Platelet Volume 10.6 fL (9.4-12.4); Monocytes # 1.2 K/mcL (0.0-1.3); Monocytes % 7.6 %; Neutrophils # 11.4 K/mcL (1.6-8.9); Platelet Count 481 K/mcL (140-400); Red Blood Count 2.45 M/mcL (4.19-5.50); Red Cell Distribution Width 18.6 % (11.5-14.5); Segmented Neutrophils % 75.1 %
--- NOTE | 2016-07-19 12:58 | General Surgery Progress Note ---
Date of Encounter: 07/19/16 Time of Encounter: 09:30 - Assessment and Plan (1) Perforated appendicitis Current Visit: Yes Status: Acute POD #6 exploratory lap, SHANNON, repair of SB enterotomy Speech consult and swallow evaluation May have clear liquids with protein supplements if safe to swallow May restart PO meds if safe to swallow IV antibiotics- Zosyn TPN therapy Supportive care/pain control repeat am labs PT/OT daily Will continue to follow (2) HCAP (healthcare-associated pneumonia) Current Visit: Yes Status: Acute Management per pulmonary/medicine service Continue Zosyn per pulmonary recommendations (3) Anemia Current Visit: Yes Status: Acute Repeat Hgb 6.[address] Boothe and likely transfuse 2 units of PRBC Repeat Hgb/Hct in the am Qualifiers: Anemia type: other cause Other causes of anemia: other cause, not classified Qualified Code(s): D64.89 - Other specified anemias (4) History of dysphagia Current Visit: Yes Status: Chronic Speech therapy consulted to evaluate and make recommendations for oral intake- contacted per myself to see patient today May perform barium swallow if indicated (5) DVT prophylaxis Current Visit: Yes Status: Acute Continue Lovenox 40mg daily for DVT prophylaxis Subjective Patient reports: no new complaints, feels better, still having pain ( particularly with coughing), bowel movement, blood in stool (small amount of blood noted separate from BM (apprimately 1 teaspoon of blood)), afebrile, other (Patient states that he did not rest well last night; refused speech therapy yesterday; Has been out of bed to chair and bedside commode with assistance.) Objective Vital Signs - Last 8 Hours Temp Pulse Resp BP Pulse Ox 07/19/16 12:00 100 07/19/16 10:55 98.5 F 97 20 124/76 97 07/19/16 10:31 18 100 07/19/16 09:00 90 07/19/16 07:59 98.2 F 95 20 132/95 96 Intake and Output 07/18/16 07/19/16 07/19/16 23:59 07:59 15:59 Intake Total 2248 / 2248 350 / 350 Output Total 450 / 450 1075 / 1075 Balance 1798 / 1798 -725 / -725 Intake: IV Fluids 2248 / 2248 350 / 350 Clinimix E 5%-20% 2148 / 2148 SOLUTION 2,000 ML Trophamine 300 ML @ 95.8 mls/hr IV .Q24H [facility] with M.v.i. Adult 10 ml Rx#: [id number] Intralipid 20% 250 ML @ 250 / 250 21 mls/hr IVPB DAILY@1700 [facility] Rx#:[id number] Zosyn 3.375 GM In 100 / 100 100 / 100 Dextrose 5% (Minibag+) 100 ML 100 ML @ 25 mls/hr IVPB Q8HR [facility] Rx#: [id number] Oral 0 / 0 Output: Catheter 450 / 450 1075 / 1075 Other: Meal Dinner Percent of Meal Consumed 0% Stool Size Moderate Moderate Stool Consistency liquid liquid Stool Color Brown Brown Bright Red Blood # Bowel Movements 1 1 Weight 96.9 kg Blood Glucose* 115 122 119 Patient Weight 07/19/16 23:59 Weight 96.9 kg - General physical appearance no distress, moderate pain, chronically ill - Eyes normal ocular movement - ENT dry mucosa, atraumatic, normocephalic - Neck Neck exam: trachea midline - Respiratory normal respiratory effort, clear to auscultation, other (diminished bibasilar bases; productive cough noted (clear)) - Cardiovascular Cardiovascular exam: Present: RRR - Abdomen Abdomen: Present: bowel sounds present, soft, tender - Incision Incision: Present: intact, serosanguinous (from bottom of incision consistent with seroma (moderate amount)) - Genitourinary other (forrest catheter to SD with clear, yellow urine noted) - Neurologic CN 2-12 grossly intact - Musculoskeletal other (moderate deconditioning) - Psychiatric oriented to time, oriented to person, oriented to place, speech is normal, memory intact - Labs 07/19/16 10:49 07/19/16 03:44 Diabetes panel 07/18/16 07/19/16 Range/Units 15:55 03:44 Sodium 132 L 132 L (136-145) mEq/L Potassium 4.7 H 4.3 (3.5-4.5) mEq/L Chloride 104 105 (98-109) mEq/L Carbon Dioxide 21 21 (19-29) mEq/L BUN 22 20 (8-26) mg/dL Creatinine 0.63 L 0.63 L (0.72-1.25) mg/dL Glucose 88 105 H (70-99) mg/dL Calcium 7.9 L 7.8 L (8.6-10.8) mg/dL Calcium panel 07/18/16 07/19/16 Range/Units 15:55 03:44 Calcium 7.9 L 7.8 L (8.6-10.8) mg/dL Phosphorus 3.7 (2.3-4.7) mg/dL Pituitary panel 07/18/16 07/19/16 Range/Units 15:55 03:44 Sodium 132 L 132 L (136-145) mEq/L Potassium 4.7 H 4.3 (3.5-4.5) mEq/L Chloride 104 105 (98-109) mEq/L Carbon Dioxide 21 21 (19-29) mEq/L BUN 22 20 (8-26) mg/dL Creatinine 0.63 L 0.63 L (0.72-1.25) mg/dL Glucose 88 105 H (70-99) mg/dL Calcium 7.9 L 7.8 L (8.6-10.8) mg/dL Adrenal panel 07/18/16 07/19/16 Range/Units 15:55 03:44 Sodium 132 L 132 L (136-145) mEq/L Potassium 4.7 H 4.3 (3.5-4.5) mEq/L Chloride 104 105 (98-109) mEq/L Carbon Dioxide 21 21 (19-29) mEq/L BUN 22 20 (8-26) mg/dL Creatinine 0.63 L 0.63 L (0.72-1.25) mg/dL Glucose 88 105 H (70-99) mg/dL Calcium 7.9 L 7.8 L (8.6-10.8) mg/dL - VTE Documentation of Mechanical Device: Intermittent pneumatic compression device Consult Discharge Plan - Plan [facility]: [facility] Provider[facility] - 08/02/16 1:30 pm - Attending Attestation I examined this patient and my medical decision-making was reviewed with the SENIOR SYSTEMS PROGRAMMER/PA/Advanced Practice Nurse/Resident Physician. I agree with the documented findings, disposition and treatment plan as described except to the extent set forth below.
--- NOTE | 2016-07-19 12:59 | Internal Med Progress Note ---
Date of Encounter: 07/19/16 Time of Encounter: 10:00 - Assessment and plan (1) Perforated appendicitis Current Visit: Yes Status: Acute Assessment and plan: Patient likely has sepsis from intra-abdominal pathology due to perforated appendicitis and enteritis. Status post appendectomy, exploratory laparoscopy with small bowel enterotomy. Improving leukocytosis and tachycardia; no fever; Continue IV Zosyn. On TPN. We will try to restart oral feeding as swallowing evaluation done (2) Acute encephalopathy Current Visit: Yes Status: Acute Assessment and plan: Likely related to complicated surgery, prolonged hospitalization and medication related- noted to be on antipsychotics and antidepressants at home which had to be held due to NG tube to suction. Improving; plan to wean off Precedex drip today; continue one-on-one sitter for safety. Avoid further sedatives/ hypnotics. (3) HCAP (healthcare-associated pneumonia) Current Visit: Yes Status: Acute Assessment and plan: Plan as above. Continue IV antibiotics and supplemental oxygen as needed. Patient's respiratory distress have significantly improved. 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 Will ask a swallow evaluation before feeding patient. (5) DVT prophylaxis Current Visit: No Status: Acute (6) DVT prophylaxis Current Visit: Yes Status: Acute Assessment and plan: on lovenox - Subjective Interval history: Patient is a 66-year-old male admitted for sepsis and perforated appendicitis. The patient had the surgery done. His past medical history is significant for GI bleeding, hepatitis, hypertension. Patient was seen and examined. He is awake alert, oriented 3. His vitals are stable, complaining of abdominal pain on incision site. Patient has passing gas and has small amount of bowel movement. Plan to have a swallowing evaluation and try to restart by mouth feeding if patient passed swallow evaluation. - Constitutional Vitals: Temp Pulse Resp BP Pulse Ox 98.5 F 100 20 124/76 97 07/19/16 10:55 07/19/16 12:00 07/19/16 10:55 07/19/16 10:55 07/19/16 10:55 General appearance: Present: A&O X 3 - Head Head exam: Present: atraumatic, normocephalic - Eye Eye exam: Present: PERRL, conjuntiva pink, sclera anicteric Pupils: Present: PERRL - Neck Neck exam general surgery: Present: supple, trachea midline. Absent: lymphadenopathy - Respiratory Respiratory exam: Present: CTAB. Absent: accessory muscle use, rales, rhonchi, wheezes - Cardiovascular Cardiovascular exam: Present: RRR, +S1, +S2. Absent: diastolic murmur, gallop, rubs, systolic murmur - GI/Abdominal GI/Abdominal exam: Present: normal bowel sounds, soft, tenderness, no peritoneal signs. Absent: distended - Extremities Exam Extremities exam: Present: warm, radial pulses palpable and symetrical. Absent : calf tenderness, cyanotic, pedal edema - Neurological Exam Neurological exam: Present: CN II-XII intact, oriented X3, no focal deficits. Absent: pronater drift, facial droop, speech deficit - Skin Skin exam: Present: dry, intact Internal Medicine: Result - Labs CBC & Chem 7: 07/19/16 10:49 07/19/16 03:44 Labs: Short CBC 07/19/16 07/19/16 Range/Units 03:44 10:49 WBC 16.1 H 15.1 H (4.3-11.1) K/mcL Hgb 6.2 L D 6.3 L (12.9-16.9) g/dL Hct 18.6 L 19.4 L (37.5-50.1) % Plt Count 415 H 481 H (140-400) K/mcL Neutrophils # 11.7 H 11.4 H (1.6-8.9) K/mcL BMP 07/18/16 07/19/16 15:55 03:44 Sodium 132 L 132 L Potassium 4.7 H 4.3 Chloride 104 105 Carbon Dioxide 21 21 BUN 22 20 Creatinine 0.63 L 0.63 L Glucose 88 105 H Calcium 7.9 L 7.8 L - ABG Interpretation ABG results: ABG ABG pH 7.41 pH Units (7.32-7.45) 07/14/16 02:38 ABG pCO2 42 mmHg (35-45) 07/14/16 02:38 ABG pO2 126 mmHg (85-104) H 07/14/16 02:38 ABG O2 Saturation 99 % (95-98) H 07/14/16 02:38 PT/INR, D-dimer PT 13.4 Seconds (9.4-12.1) H 07/10/16 05:21 - VTE Documentation of Mechanical Device: Intermittent pneumatic compression device Consult Discharge Plan - Plan Referrals: ANGELPCP [Primary Care Provider] - 08/02/16 1:30 pm
[2016-07-19] MEDS: [UNRECOGNIZED DRUG - OTHER] IV SCH ×2 (17:17→17:26)
[2016-07-19] MEDS: AMINO ACIDS 10% IV SCH ×2 (17:17→17:26)
[2016-07-19] MEDS: MVI IV SCH ×2 (17:17→17:26)
[2016-07-19] MEDS: CLINIMIX E IV SCH ×2 (17:17→17:26)
[2016-07-19] MEDS ORDERED: 0.9 % Sodium Chloride 250 ML ONE (18:47)
[2016-07-20] MEDS: Ketorolac 30 MG/ML VIAL IVP PRN ×2 (02:12→10:11)
[2016-07-20 04:27] LABS: Basophils # 0.1 K/mcL (0.0-0.2); Basophils % 0.6 %; Eosinophils # 0.4 K/mcL (0.0-0.6); Eosinophils % 2.8 %; Hematocrit 21.8 % (37.5-50.1); Hemoglobin 7.3 g/dL (12.9-16.9); Immature Granulocytes % 2.6 % (0-4); Immature Platelets 4.5 % (1.1-6.1); Lymphocytes # 1.8 K/mcL (0.6-4.6); Lymphocytes % 11.3 %; Mean Corpuscular HGB Conc 33.5 g/dL (31.6-35.5); Mean Corpuscular Hemoglobin 26.6 pg (28.0-33.3); Mean Corpuscular Volume 79.6 fL (83.0-100.0); Mean Platelet Volume 10.3 fL (9.4-12.4); Monocytes # 1.4 K/mcL (0.0-1.3); Monocytes % 8.8 %; Neutrophils # 11.7 K/mcL (1.6-8.9); Platelet Count 501 K/mcL (140-400); Red Blood Count 2.74 M/mcL (4.19-5.50); Red Cell Distribution Width 18.3 % (11.5-14.5); Segmented Neutrophils % 73.9 %
[2016-07-20 04:36] LABS: BUN/Creatinine Ratio 28 (6-26); Blood Urea Nitrogen 17 mg/dL (8-26); Carbon Dioxide 19 mEq/L (19-29); Chloride 105 mEq/L (98-109); Glucose 109 mg/dL (70-99); Osmolality,Calculated 274 (280-300); Potassium 4.3 mEq/L (3.5-4.5); Sodium 131 mEq/L (136-145); eGFR For African Americans > 60 (> 60); eGFR For Non-African Americans > 60 (> 60)
[2016-07-20] MEDS: Ipratropium/Albuterol Neb 3 ML IH SCH ×4 (04:39→21:49)
[2016-07-20] MEDS: *HR* Enoxaparin 40 MG/0.4 ML SYRINGE SQ SCH (06:22)
[2016-07-20] MEDS: Pantoprazole 40 MG VIAL IVP SCH (10:11)
[2016-07-20] MEDS: Piperacillin/Tazobactam 3.375 GM in D5% in Water (Mini-Bag+) 100 ML IVPB SCH ×3 (10:11→23:50)
[2016-07-20] MEDS: *HR* Metoprolol 5 MG/5 ML VIAL IVP SCH (10:11)
[2016-07-20] MEDS: Dexmedetomidine HCl 400 MCG/100 ML MLS IVC SCH (10:12)
[2016-07-20] MEDS: Nicotine 21 MG PATCH.TD24 TD SCH (10:12)
[2016-07-20] MEDS: *HR* HYDROmorphone (PF) 1 MG/ML SYRINGE IVP PRN ×3 (10:23→18:16)
[2016-07-20] MEDS: Thiamine (B-1) 100 MG in D5% in Water 50 ML IVPB SCH (10:23)
--- NOTE | 2016-07-20 12:51 | Internal Med Progress Note ---
Date of Encounter: 07/20/16 Time of Encounter: 09:00 - Assessment and plan (1) Perforated appendicitis Current Visit: Yes Status: Acute Assessment and plan: Patient likely has sepsis from intra-abdominal pathology due to perforated appendicitis and enteritis. Status post appendectomy, exploratory laparoscopy with small bowel enterotomy. Improving leukocytosis and tachycardia; no fever; Continue IV Zosyn. On TPN. swallowing evaluation done. Restarted oral feeding. Patient is at high risk because he need surgical intervention. (2) Acute encephalopathy Current Visit: Yes Status: Acute Assessment and plan: Likely related to complicated surgery, prolonged hospitalization and medication related- noted to be on antipsychotics and antidepressants at home which had to be held due to NG tube to suction. Improving; Wean off Precedex drip today; continue one-on-one sitter for safety. Avoid further sedatives/hypnotics. (3) HCAP (healthcare-associated pneumonia) Current Visit: Yes Status: Acute Assessment and plan: Plan as above. Continue IV antibiotics and supplemental oxygen as needed. Patient's respiratory distress have significantly improved. 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 Swallow evaluation done, recommendation would be followed. (5) DVT prophylaxis Current Visit: Yes Status: Acute Assessment and plan: on lovenox - Time Spent With Patient Greater than 35 minutes - Subjective Interval history: Patient is a 66-year-old male admitted for sepsis and perforated appendicitis. The patient had the surgery done. His past medical history is significant for GI bleeding, hepatitis, hypertension. Patient was seen and examined. He is awake alert, oriented 3. His vitals are stable, complaining of abdominal pain on incision site. Patient has passing gas and has small amount of bowel movement. Swallow evaluation done. Diet has resumed. Will closely monitor pt and advance diet gradually. - Constitutional Vitals: Temp Pulse Resp BP Pulse Ox 97.9 F 93 16 154/97 93 L 07/20/16 11:46 07/20/16 11:50 07/20/16 11:46 07/20/16 07:00 07/20/16 11:46 General appearance: Present: A&O X 3 - Head Head exam: Present: atraumatic, normocephalic - Eye Eye exam: Present: PERRL, conjuntiva pink, sclera anicteric Pupils: Present: PERRL - Neck Neck exam general surgery: Present: supple, trachea midline. Absent: lymphadenopathy - Respiratory Respiratory exam: Present: CTAB. Absent: accessory muscle use, rales, rhonchi, wheezes - Cardiovascular Cardiovascular exam: Present: RRR, +S1, +S2. Absent: diastolic murmur, gallop, rubs, systolic murmur - GI/Abdominal GI/Abdominal exam: Present: normal bowel sounds, soft, tenderness, no peritoneal signs. Absent: distended - Extremities Exam Extremities exam: Present: warm, radial pulses palpable and symetrical. Absent : calf tenderness, cyanotic, pedal edema - Neurological Exam Neurological exam: Present: CN II-XII intact, oriented X3, no focal deficits. Absent: pronater drift, facial droop, speech deficit - Skin Skin exam: Present: dry, intact Internal Medicine: Result - Labs CBC & Chem 7: 07/20/16 04:07 07/20/16 04:02 Labs: Short CBC 07/20/16 Range/Units 04:07 WBC 15.9 H (4.3-11.1) K/mcL Hgb 7.3 L (12.9-16.9) g/dL Hct 21.8 L (37.5-50.1) % Plt Count 501 H (140-400) K/mcL Neutrophils # 11.7 H (1.6-8.9) K/mcL BMP 07/20/16 04:02 Sodium 131 L Potassium 4.3 Chloride 105 Carbon Dioxide 19 BUN 17 Creatinine 0.61 L Glucose 109 H Calcium 8.0 L - ABG Interpretation ABG results: ABG ABG pH 7.41 pH Units (7.32-7.45) 07/14/16 02:38 ABG pCO2 42 mmHg (35-45) 07/14/16 02:38 ABG pO2 126 mmHg (85-104) H 07/14/16 02:38 ABG O2 Saturation 99 % (95-98) H 07/14/16 02:38 PT/INR, D-dimer PT 13.4 Seconds (9.4-12.1) H 07/10/16 05:21 - Impressions Impressions Videofluoroscopic Swallow 07/20/16 00:01 IMPRESSION: Episode of deep laryngeal penetration with thin barium by straw. No evidence of aspiration. Please see separate speech pathology report for full discussion of findings and recommendations. D/ / 07/20/2016 09:33:54 Praneteh Vasquez MD / [email or web address] Interpreting Provider: Praneeth Vasquez MD - VTE Documentation of Mechanical Device: Intermittent pneumatic compression device Consult Discharge Plan - Plan [facility]errals: [facility] [Primary Care Provider[facility] - 08/02/16 1:30 pm
--- NOTE | 2016-07-20 15:51 | Operative Note ---
Date of procedure: 07/14/16 Pre-op diagnosis: Bowel obstruction Post-op diagnosis: other (Bowel obstruction with associated perforated appendicitis) Procedure: Laparotomy with repair of small bowel enterotomy Appendectomy Partial omentectomy Anesthesia: DENY Surgeon: Telly Boothe Estimated blood loss (cc): 200 Specimen: Partial omentum and appendix Condition: stable Disposition: ICU Procedure in Detail: After informed consent the patient was taken to the operating room placed in the supine position. After adequate sedation anesthesia the abdomen was prepped and draped. Initially a 5 mm cannulas placed in left upper quadrant. However due to the small bowel dilation I was unable to complete a diagnostic laparoscopy. Therefore midline laparotomy was created. Once I gained access to the abdomen a Bookwalter retractor was placed on the field. Abdominal wall was retracted laterally. There are multiple loops of small bowel that were dilated. I was able to identify an area that was adhesed in the left upper quadrant as well as in the right lower quadrant. The adhesions were freed with both sharp and blunt dissection. There were 2 small bowel enterotomies created with the dissection. These were expected outcomes of the procedure due to the adhesions and the small bowel dilation. These were repaired with 3-0 silk suture 3 apiece. Once completed as able to identify the nidus of the bowel obstruction which was a perforated appendicitis. There is a loop of small bowel in the pelvis that was freed that had been attached to the phlegmon. Once it was freed I was able to perform an appendectomy. The base of the appendix was perforated and the stump was oversewn with 3-0 silk suture 2. The mesial appendix was secured with an 0 silk suture. The appendix was transected and sent off the table. There was adhesive bands attached to the omentum. This was dissected free and removed and sent as partial omentum. Once completed the remainder the abdomen was irrigated and suctioned dry. The abdomen was then closed with looped PDS suture and cephalad to caudal and caudal to cephalad motion. Skin adina were placed.
[2016-07-20] MEDS: CLINIMIX E IV SCH ×2 (17:23→17:24)
[2016-07-20] MEDS: OLANZapine 10 MG TAB.RAPDIS PO SCH (17:23)
[2016-07-20] MEDS: [UNRECOGNIZED DRUG - OTHER] IV SCH ×2 (17:23→17:24)
[2016-07-20] MEDS: MVI IV SCH ×2 (17:23→17:24)
[2016-07-20] MEDS: AMINO ACIDS 10% IV SCH ×2 (17:23→17:24)
--- NOTE | 2016-07-20 18:25 | General Surgery Progress Note ---
Date of Encounter: 07/20/16 Time of Encounter: 18:24 - Assessment and Plan (1) Perforated appendicitis Current Visit: Yes Status: Acute POD #7 exploratory lap, SHANNON, repair of SB enterotomy Clear liquids with protein supplements Restart PO meds IV antibiotics- Zosyn TPN therapy Supportive care/pain control Repeat am labs PT/OT daily Daily wound care- packed with 1/2 inch plain gauze, covered with 4x4. Will continue to follow. (2) HCAP (healthcare-associated pneumonia) Current Visit: Yes Status: Acute Management per pulmonary/medicine service Continue Zosyn per pulmonary recommendations (3) Anemia Current Visit: Yes Status: Acute Received 1 unite pRBC yesterday. Hgb 6.3>7.3 Qualifiers: Anemia type: other cause Other causes of anemia: other cause, not classified Qualified Code(s): D64.89 - Other specified anemias (4) History of dysphagia Current Visit: Yes Status: Chronic Swallow eval completed; ACUPUNCTURE PHYSICIAN recommending patient continue with clear liquid diet with nectar thick consistencies. (5) DVT prophylaxis Current Visit: Yes Status: Acute Continue Lovenox 40mg daily for DVT prophylaxis Subjective Patient reports: no new complaints, feels better, still having pain, bowel movement, blood in stool, afebrile, other (Patient sitting up in chair, states he is feeling better, complains of pain with moving from chair to bed.) Objective Vital Signs - Last 8 Hours Temp Pulse Resp Pulse Ox 07/20/16 16:11 115 07/20/16 15:55 98 F 115 16 95 07/20/16 15:38 16 93 L 07/20/16 11:50 93 07/20/16 11:46 97.9 F 90 16 93 L 07/20/16 10:41 18 95 Intake and Output 07/20/16 07/20/16 07/20/16 07:59 15:59 23:59 Intake Total 350 / 350 151 / 151 2730 / 2730 Output Total 1150 / 1150 500 / 500 700 / 700 Balance -800 / -800 -349 / -349 2029 Intake: IV Fluids 350 / 350 151 / 151 225 / 2257 Clinimix E 5%-20% 2256 / 225 SOLUTION 2,000 ML Trophamine 300 ML @ 95.8 mls/hr IV .Q24H MICHAELA with M.v.i. Adult 10 ml Rx#: [id number] Intralipid 20% 250 ML @ 250 / 250 21 mls/hr IVPB DAILY@1700 [facility] Rx#:[id number] Zosyn 3.375 GM In 100 / 100 100 / 100 Dextrose 5% (Minibag+) 100 ML 100 ML @ 25 mls/hr IVPB Q8HR [facility] Rx#: [id number] Vitamin B-1 100 MG In 51 / 51 Dextrose 5% 50 ML @ 50 mls/hr IVPB DAILY [facility] Rx# :[id number] Oral 0 / 0 0 / 0 473 / 473 Output: Urine 1150 / 1150 500 / 500 700 / 700 Other: Meal Lunch Percent of Meal Consumed 0% Stool Size Moderate Stool Consistency liquid Stool Color Black # Bowel Movements 1 Weight 95.2 kg Blood Glucose* 99 105 Patient Weight 07/20/16 23:59 Weight 95.2 kg - General physical appearance no distress, moderate pain, chronically ill - Eyes normal ocular movement - ENT dry mucosa, atraumatic, normocephalic - Neck Neck exam: trachea midline - Respiratory normal respiratory effort, other (deminished bibasilar bases, productive cough with clear sputum noted.) - Cardiovascular Cardiovascular exam: Present: tachycardia - Abdomen Abdomen: Present: bowel sounds present, soft, tender - Incision Incision: Present: intact, serosanguinous (dressing saturated) - Neurologic CN 2-12 grossly intact - Musculoskeletal other (moderate deconditioning) - Psychiatric oriented to time, oriented to person, oriented to place, speech is normal, memory intact - Labs 07/20/16 04:07 07/20/16 04:02 Diabetes panel 07/20/16 Range/Units 04:02 Sodium 131 L (136-145) mEq/L Potassium 4.3 (3.5-4.5) mEq/L Chloride 105 (98-109) mEq/L Carbon Dioxide 19 (19-29) mEq/L BUN 17 (8-26) mg/dL Creatinine 0.61 L (0.72-1.25) mg/dL Glucose 109 H (70-99) mg/dL Calcium 8.0 L (8.6-10.8) mg/dL Calcium panel 07/20/16 Range/Units 04:02 Calcium 8.0 L (8.6-10.8) mg/dL Pituitary panel 07/20/16 Range/Units 04:02 Sodium 131 L (136-145) mEq/L Potassium 4.3 (3.5-4.5) mEq/L Chloride 105 (98-109) mEq/L Carbon Dioxide 19 (19-29) mEq/L BUN 17 (8-26) mg/dL Creatinine 0.61 L (0.72-1.25) mg/dL Glucose 109 H (70-99) mg/dL Calcium 8.0 L (8.6-10.8) mg/dL Adrenal panel 07/20/16 Range/Units 04:02 Sodium 131 L (136-145) mEq/L Potassium 4.3 (3.5-4.5) mEq/L Chloride 105 (98-109) mEq/L Carbon Dioxide 19 (19-29) mEq/L BUN 17 (8-26) mg/dL Creatinine 0.61 L (0.72-1.25) mg/dL Glucose 109 H (70-99) mg/dL Calcium 8.0 L (8.6-10.8) mg/dL - VTE Documentation of Mechanical Device: Intermittent pneumatic compression device Consult Discharge Plan - Plan Referrals: [facility],PCP [Primary Care Provider] - 08/02/16 1:30 pm
[2016-07-20] MEDS: Famotidine 20 MG TABLET PO SCH (20:40)
[2016-07-20] MEDS ORDERED: NON-FORMULARY MEDICATION 1 EACH EACH (Ranitidine Hcl [Acid Reducer] 150 MG) PO SCH (21:00)
[2016-07-21] MEDS: *HR* HYDROmorphone (PF) 1 MG/ML SYRINGE IVP PRN ×5 (04:13→21:17)
[2016-07-21] MEDS: Ipratropium/Albuterol Neb 3 ML IH SCH ×4 (04:16→22:44)
[2016-07-21 05:02] LABS: Basophils # 0.1 K/mcL (0.0-0.2); Basophils % 0.8 %; Eosinophils # 0.4 K/mcL (0.0-0.6); Eosinophils % 2.5 %; Hematocrit 23.6 % (37.5-50.1); Hemoglobin 7.8 g/dL (12.9-16.9); Lymphocytes # 2.2 K/mcL (0.6-4.6); Lymphocytes % 12.9 %; Mean Corpuscular HGB Conc 33.1 g/dL (31.6-35.5); Mean Corpuscular Hemoglobin 26.3 pg (28.0-33.3); Mean Corpuscular Volume 79.5 fL (83.0-100.0); Mean Platelet Volume 10.2 fL (9.4-12.4); Monocytes % 11.7 %; Platelet Count 570 K/mcL (140-400); Red Blood Count 2.97 M/mcL (4.19-5.50); Red Cell Distribution Width 18.5 % (11.5-14.5); Segmented Neutrophils % 69.1 %
[2016-07-21 05:20] LABS: BUN/Creatinine Ratio 26 (6-26); Blood Urea Nitrogen 16 mg/dL (8-26); Calcium 8.4 mg/dL (8.6-10.8); Carbon Dioxide 21 mEq/L (19-29); Chloride 103 mEq/L (98-109); Glucose 86 mg/dL (70-99); Osmolality,Calculated 270 (280-300); Potassium 4.5 mEq/L (3.5-4.5); Sodium 130 mEq/L (136-145); Triglycerides 84 mg/dL (< 150); eGFR For African Americans > 60 (> 60); eGFR For Non-African Americans > 60 (> 60)
[2016-07-21] MEDS: OLANZapine 5 MG TAB.RAPDIS PO SCH (09:18)
[2016-07-21] MEDS: Piperacillin/Tazobactam 3.375 GM in D5% in Water (Mini-Bag+) 100 ML IVPB SCH (09:19)
[2016-07-21] MEDS: Famotidine 20 MG TABLET PO SCH ×2 (09:19→21:18)
[2016-07-21] MEDS: Pantoprazole 40 MG VIAL IVP SCH (09:19)
[2016-07-21] MEDS: *HR* Enoxaparin 40 MG/0.4 ML SYRINGE SQ SCH (09:19)
[2016-07-21] MEDS: Nicotine 21 MG PATCH.TD24 TD SCH (11:32)
[2016-07-21] MEDS: Thiamine (B-1) 100 MG in D5% in Water 50 ML IVPB SCH (11:32)
--- NOTE | 2016-07-21 11:53 | Internal Med Progress Note ---
Date of Encounter: 07/21/16 Time of Encounter: 10:00 - Assessment and plan (1) Perforated appendicitis Current Visit: Yes Status: Acute Assessment and plan: Patient likely has sepsis from intra-abdominal pathology due to perforated appendicitis and enteritis. Status post appendectomy, exploratory laparoscopy with small bowel enterotomy. Abdomen CT shows pelvic abscess. Continue IV Zosyn. Surgical consult is on case. Patient is at high risk because he need surgical intervention. (2) Acute encephalopathy Current Visit: Yes Status: Acute Assessment and plan: Likely related to complicated surgery, prolonged hospitalization and medication related- noted to be on antipsychotics and antidepressants at home which had to be held due to NG tube to suction. Improving; stop Precedex drip; continue one- on-one sitter for safety. Avoid further sedatives/hypnotics. (3) HCAP (healthcare-associated pneumonia) Current Visit: Yes Status: Acute Assessment and plan: Plan as above. Continue IV antibiotics and supplemental oxygen as needed. Patient's respiratory distress have significantly improved. 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 Swallow evaluation done, recommendation would be followed. (5) DVT prophylaxis Current Visit: Yes Status: Acute Assessment and plan: on lovenox - Time Spent With Patient Greater than 35 minutes - Subjective Interval history: Patient is a 66-year-old male admitted for sepsis and perforated appendicitis. The patient had the surgery done. His past medical history is significant for GI bleeding, hepatitis, hypertension. Patient was seen and examined. He is awake alert, oriented 3. Had a bowel movement yesterday. Patient also passing gas, complaining of abdominal pain on incision site. Still tachycardic and leukocytosis. Abdominal CT shows pelvic abscess. We will continue antibiotic treatment and follow surgical recommendations. - Constitutional Vitals: Temp Pulse Resp BP Pulse Ox 98 F 98 22 96/72 98 07/21/16 07:00 07/21/16 11:22 07/21/16 11:22 07/21/16 07:00 07/21/16 11:22 General appearance: Present: A&O X 3 - Head Head exam: Present: atraumatic, normocephalic - Eye Eye exam: Present: PERRL, conjuntiva pink, sclera anicteric Pupils: Present: PERRL - Neck Neck exam general surgery: Present: supple, trachea midline. Absent: lymphadenopathy - Respiratory Respiratory exam: Present: CTAB. Absent: accessory muscle use, rales, rhonchi, wheezes - Cardiovascular Cardiovascular exam: Present: RRR, +S1, +S2. Absent: diastolic murmur, gallop, rubs, systolic murmur - GI/Abdominal GI/Abdominal exam: Present: normal bowel sounds, soft, tenderness, no peritoneal signs. Absent: distended - Extremities Exam Extremities exam: Present: warm, radial pulses palpable and symetrical. Absent : calf tenderness, cyanotic, pedal edema - Neurological Exam Neurological exam: Present: CN II-XII intact, oriented X3, no focal deficits. Absent: pronater drift, facial droop, speech deficit - Skin Skin exam: Present: dry, intact Internal Medicine: Result - Labs CBC & Chem 7: 07/21/16 04:50 07/21/16 04:50 Labs: Short CBC 07/21/16 Range/Units 04:50 WBC 17.4 H (4.3-11.1) K/mcL Hgb 7.8 L (12.9-16.9) g/dL Hct 23.6 L (37.5-50.1) % Plt Count 570 H (140-400) K/mcL Neutrophils # 12.0 H (1.6-8.9) K/mcL BMP 07/21/16 04:50 Sodium 130 L Potassium 4.5 Chloride 103 Carbon Dioxide 21 BUN 16 Creatinine 0.62 L Glucose 86 Calcium 8.4 L - ABG Interpretation ABG results: ABG ABG pH 7.41 pH Units (7.32-7.45) 07/14/16 02:38 ABG pCO2 42 mmHg (35-45) 07/14/16 02:38 ABG pO2 126 mmHg (85-104) H 07/14/16 02:38 ABG O2 Saturation 99 % (95-98) H 07/14/16 02:38 PT/INR, D-dimer PT 13.4 Seconds (9.4-12.1) H 07/10/16 05:21 - Impressions Impressions Abdomen/Pelvis CT 07/21/16 08:39 IMPRESSION: 1. 3.9 x 3.1 cm organized fluid collection in the right pelvic region likely represents abscess. 2. Midline incision. Below the umbilicus there is an area of gas and irregular soft tissue density along the incision. This could represent an area of packing in the wound appears to be open at this level. 3. Bowel wall thickening within pelvic loops of small bowel which could be secondary inflammation or due to other etiologies such as radiation enteritis or infection. 4. Small right pleural effusion and subcutaneous edema. D/ / Devin Chambers MD / Devin Chambers MD Interpreting Provider: Devin Chambers MD Chest X-Ray 07/21/16 08:43 IMPRESSION: Persistent bilateral airspace disease could represent persistent pneumonia. Pulmonary edema could give this appearance as well. D/ / Evan Mckeon MD / Evan Mckeon MD Interpreting Provider: Evan Mckeon MD - VTE Documentation of Mechanical Device: Intermittent pneumatic compression device Consult Discharge Plan - Plan [facility]errals: [facility] [Primary Care Provider[facility] - 08/02/16 1:30 pm
--- NOTE | 2016-07-21 14:14 | General Surgery Progress Note ---
Date of Encounter: 07/21/16 Time of Encounter: 13:45 - Assessment and Plan (1) Perforated appendicitis Current Visit: Yes Status: Acute POD #8 exploratory lap, SHANNON, repair of SB enterotomy Advance to mechanical soft diet with nectar thick liquids IV antibiotics- Zosyn TPN therapy Supportive care/pain control repeat am labs PT/OT daily Will continue to follow CT scan today shows 3.9 X 3.1cm fluid collection- IR consulted and notified by myself D/C Zosyn Start Diflucan- loading dose of 200mg today IVPB (2) HCAP (healthcare-associated pneumonia) Current Visit: Yes Status: Acute Management per pulmonary/medicine service Zosyn discontinued today (3) Anemia Current Visit: Yes Status: Acute Stable at 7.8 Repeat am labs Qualifiers: Anemia type: other cause Other causes of anemia: other cause, not classified Qualified Code(s): D64.89 - Other specified anemias (4) History of dysphagia Current Visit: Yes Status: Chronic Speech therapy consulted to evaluate and make recommendations for oral intake Advance to mechanical soft diet today (5) DVT prophylaxis Current Visit: Yes Status: Acute Continue Lovenox 40mg daily for DVT prophylaxis Subjective Patient reports: feels better, still having pain, pain is less, tolerating liquids well, voiding w/o difficulty, flatus, bowel movement (last 2/8), afebrile, other (CT scan complete this morning per Dr. Boothe orders) Objective Vital Signs - Last 8 Hours Temp Pulse Resp BP Pulse Ox 07/21/16 12:03 98.1 F 101 20 105/68 90 L 07/21/16 11:22 98 22 98 07/21/16 08:59 103 94 L 07/21/16 07:00 98 F 105 20 96/72 94 L Intake and Output 07/20/16 07/21/16 07/21/16 23:59 07:59 15:59 Intake Total 2830 / 2830 100 / 100 51 / 51 Output Total 2375 / 2375 1625 / 1625 525 / 525 Balance 455 / 455 -1525 / -1525 -474 / -474 Intake: IV Fluids 2357 / 2357 100 / 100 51 / 51 Clinimix E 5%-20% 2257 / 2257 SOLUTION 2,000 ML Trophamine 300 ML @ 95.8 mls/hr IV .Q24H MICHAELA with M.v.i. Adult 10 ml Rx#: [id number] Zosyn 3.375 GM In 100 / 100 100 / 100 Dextrose 5% (Minibag+) 100 ML 100 ML @ 25 mls/hr IVPB Q8HR [facility] Rx#: [id number] Vitamin B-1 100 MG In 51 / 51 Dextrose 5% 50 ML @ 50 mls/hr IVPB DAILY [facility] Rx# :[id number] Oral 473 / 473 0 / 0 Output: Urine 2375 / 2375 1625 / 1625 225 / 225 Catheter 300 / 300 Other: Meal Breakfast Percent of Meal Consumed 0% Weight 89.9 kg Blood Glucose* 111 116 123 Patient Weight 07/21/16 23:59 Weight 89.9 kg - General physical appearance no distress, chronically ill, other (resting in bed comfortably) - Eyes normal ocular movement - ENT normal mucosa, atraumatic, normocephalic - Neck Neck exam: trachea midline - Respiratory normal respiratory effort, clear to auscultation, other (diminished bibasilar bases) - Cardiovascular Cardiovascular exam: Present: tachycardia - Abdomen Abdomen: Present: bowel sounds present, soft, tender (mild, expected post- operative tenderness), wound (Midline with open area packed with 1/2 inch gauze , small amount of serousang. drainage noted. No surrounding erythema or induration.) - Genitourinary other (clear, yellow urine) - Neurologic CN 2-12 grossly intact - Musculoskeletal other (moderate deconditioning) - Psychiatric oriented to person, oriented to place, speech is normal - Labs 07/21/16 04:50 07/21/16 04:50 Diabetes panel 07/21/16 Range/Units 04:50 Sodium 130 L (136-145) mEq/L Potassium 4.5 (3.5-4.5) mEq/L Chloride 103 (98-109) mEq/L Carbon Dioxide 21 (19-29) mEq/L BUN 16 (8-26) mg/dL Creatinine 0.62 L (0.72-1.25) mg/dL Glucose 86 (70-99) mg/dL Calcium 8.4 L (8.6-10.8) mg/dL Triglycerides 84 (< 150) mg/dL Calcium panel 07/21/16 Range/Units 04:50 Calcium 8.4 L (8.6-10.8) mg/dL Pituitary panel 07/21/16 Range/Units 04:50 Sodium 130 L (136-145) mEq/L Potassium 4.5 (3.5-4.5) mEq/L Chloride 103 (98-109) mEq/L Carbon Dioxide 21 (19-29) mEq/L BUN 16 (8-26) mg/dL Creatinine 0.62 L (0.72-1.25) mg/dL Glucose 86 (70-99) mg/dL Calcium 8.4 L (8.6-10.8) mg/dL Adrenal panel 07/21/16 Range/Units 04:50 Sodium 130 L (136-145) mEq/L Potassium 4.5 (3.5-4.5) mEq/L Chloride 103 (98-109) mEq/L Carbon Dioxide 21 (19-29) mEq/L BUN 16 (8-26) mg/dL Creatinine 0.62 L (0.72-1.25) mg/dL Glucose 86 (70-99) mg/dL Calcium 8.4 L (8.6-10.8) mg/dL - VTE Documentation of Mechanical Device: Intermittent pneumatic compression device Consult Discharge Plan - Plan [facility]errals: [facility] [Primary Care Provider[facility] - 08/02/16 1:30 pm - Attending Attestation I examined this patient and my medical decision-making was reviewed with the PIPE STRIPPER/PA/Advanced Practice Nurse/Resident Physician. I agree with the documented findings, disposition and treatment plan as described except to the extent set forth below.
[2016-07-21] MEDS ORDERED: Fluconazole 200 MG/100 ML 200 MG/100 ML BAG IVPB ONE (14:21)
[2016-07-21 14:42] LABS: INR 1.4
[2016-07-21] MEDS: [UNRECOGNIZED DRUG - OTHER] IV SCH ×2 (17:05→17:27)
[2016-07-21] MEDS: CLINIMIX E IV SCH ×2 (17:05→17:27)
[2016-07-21] MEDS: MVI IV SCH ×2 (17:05→17:27)
[2016-07-21] MEDS: AMINO ACIDS 10% IV SCH ×2 (17:05→17:27)
[2016-07-21] MEDS: OLANZapine 10 MG TAB.RAPDIS PO SCH (17:23)
[2016-07-22] MEDS: *HR* HYDROmorphone (PF) 1 MG/ML SYRINGE IVP PRN ×3 (04:12→15:51)
[2016-07-22] MEDS: Ipratropium/Albuterol Neb 3 ML IH SCH ×4 (05:09→23:00)
[2016-07-22 06:03] LABS: Basophils # 0.1 K/mcL (0.0-0.2); Basophils % 1.1 %; Eosinophils # 0.4 K/mcL (0.0-0.6); Eosinophils % 3.1 %; Hematocrit 24.2 % (37.5-50.1); Hemoglobin 7.7 g/dL (12.9-16.9); Immature Granulocytes % 3.8 % (0-4); Lymphocytes # 2.1 K/mcL (0.6-4.6); Lymphocytes % 16.9 %; Mean Corpuscular HGB Conc 31.8 g/dL (31.6-35.5); Mean Corpuscular Hemoglobin 25.6 pg (28.0-33.3); Mean Corpuscular Volume 80.4 fL (83.0-100.0); Mean Platelet Volume 10.3 fL (9.4-12.4); Monocytes # 1.6 K/mcL (0.0-1.3); Monocytes % 13.3 %; Neutrophils # 7.7 K/mcL (1.6-8.9); Platelet Count 623 K/mcL (140-400); Red Blood Count 3.01 M/mcL (4.19-5.50); Red Cell Distribution Width 18.9 % (11.5-14.5); Segmented Neutrophils % 61.8 %
[2016-07-22 06:16] LABS: BUN/Creatinine Ratio 28 (6-26); Blood Urea Nitrogen 18 mg/dL (8-26); Calcium 8.5 mg/dL (8.6-10.8); Carbon Dioxide 23 mEq/L (19-29); Chloride 101 mEq/L (98-109); Glucose 106 mg/dL (70-99); Osmolality,Calculated 272 (280-300); Potassium 4.6 mEq/L (3.5-4.5); Sodium 130 mEq/L (136-145); eGFR For African Americans > 60 (> 60); eGFR For Non-African Americans > 60 (> 60)
[2016-07-22] MEDS: OLANZapine 5 MG TAB.RAPDIS PO SCH (08:23)
[2016-07-22] MEDS: Pantoprazole 40 MG VIAL IVP SCH (08:23)
[2016-07-22] MEDS: Famotidine 20 MG TABLET PO SCH ×2 (08:23→20:59)
[2016-07-22] MEDS: Nicotine 21 MG PATCH.TD24 TD SCH (08:23)
[2016-07-22] MEDS ORDERED: *HR* FentaNYL (PF) 100 MCG/2 ML VIAL IV PRN (09:53)
[2016-07-22] MEDS ORDERED: 0.9 % Sodium Chloride 500 ML ONE (09:56)
--- NOTE | 2016-07-22 11:16 | General Surgery Progress Note ---
Date of Encounter: 07/22/16 Time of Encounter: 11:00 - Assessment and Plan (1) Perforated appendicitis Current Visit: Yes Status: Acute POD #9 exploratory lap, SHANNON, repair of SB enterotomy Continue mechanical soft diet with nectar thick liquids TPN therapy- decrease to 50ml/hour Supportive care/pain control ([place] added today) repeat am labs PT/OT daily Will continue to follow CT scan today shows 3.9 X 3.1cm fluid collection- IR unable to drain safely due to location D/C Zosyn 07/21 Continue difllucan 100mg daily IVPB (2) HCAP (healthcare-associated pneumonia) Current Visit: Yes Status: Acute Management per pulmonary/medicine service Zosyn discontinued 07/21 (3) Anemia Current Visit: Yes Status: Acute Stable at 7.7 Transfuse 1 unit of PRBC today due to signs/symptoms of anemia when up (dizzy and light headed) Repeat am labs Qualifiers: Anemia type: other cause Other causes of anemia: other cause, not classified Qualified Code(s): D64.89 - Other specified anemias (4) History of dysphagia Current Visit: Yes Status: Chronic Speech therapy consulted to evaluate and make recommendations for oral intake Continue mechanical soft diet (5) DVT prophylaxis Current Visit: Yes Status: Acute Continue Lovenox 40mg daily for DVT prophylaxis Subjective Patient reports: no new complaints, feels better, still having pain, pain is less, tolerating a regular diet (mechanical soft), voiding w/o difficulty, flatus, bowel movement (last 2), afebrile, other (IR- unable to drain fluid collection due to location this morning) Objective Vital Signs - Last 8 Hours Temp Pulse Resp BP Pulse Ox 07/22/16 08:10 90 96 07/22/16 07:14 98.1 F 91 18 112/82 95 07/22/16 05:20 93 07/22/16 04:11 97.7 F 96 24 108/68 96 Intake and Output 07/21/16 07/22/16 07/22/16 23:59 07:59 15:59 Intake Total 2580 / 2580 Output Total 485 / 485 1000 / 1000 250 / 250 Balance 2095 / 2095 -1000 / -1000 -250 / -250 Intake: IV Fluids 2460 / 2460 Clinimix E 5%-20% 2210 / 2210 SOLUTION 2,000 ML Trophamine 300 ML @ 95.8 mls/hr IV .Q24H MICHAELA with M.v.i. Adult 10 ml Rx#: [id number] Intralipid 20% 250 ML @ 250 / 250 21 mls/hr IVPB DAILY@1700 MICHAELA Rx#:[id number] Oral 120 / 120 Output: Urine 485 / 485 1000 / 1000 250 / 250 Other: Meal Dinner NPO at breakfast Percent of Meal Consumed 50% Weight 89.1 kg Blood Glucose* 112 114 Patient Weight 07/22/16 23:59 Weight 89.1 kg - General physical appearance well developed, no distress, other (out of bed to chair) - Eyes normal ocular movement - ENT normal mucosa, atraumatic, normocephalic - Neck Neck exam: trachea midline - Respiratory normal respiratory effort, clear to auscultation, other (diminished bibasilar bases) - Cardiovascular Cardiovascular exam: Present: RRR - Abdomen Abdomen: Present: bowel sounds present, soft, tender (mild, expeceted post- operative tenderness), wound (Midline with packing intact- small amount of serous drainage noted without erythema or induration) - Incision Incision: Present: open (midline with adina with small open area draining minimal amount of serous drainage) - Integumentary no rash - Neurologic CN 2-12 grossly intact - Musculoskeletal other (moderate deconditioning) - Psychiatric oriented to person, oriented to place, speech is normal - Labs 07/22/16 05:15 07/22/16 05:15 Diabetes panel 07/22/16 Range/Units 05:15 Sodium 130 L (136-145) mEq/L Potassium 4.6 H (3.5-4.5) mEq/L Chloride 101 (98-109) mEq/L Carbon Dioxide 23 (19-29) mEq/L BUN 18 (8-26) mg/dL Creatinine 0.64 L (0.72-1.25) mg/dL Glucose 106 H (70-99) mg/dL Calcium 8.5 L (8.6-10.8) mg/dL Calcium panel 07/22/16 Range/Units 05:15 Calcium 8.5 L (8.6-10.8) mg/dL Pituitary panel 07/22/16 Range/Units 05:15 Sodium 130 L (136-145) mEq/L Potassium 4.6 H (3.5-4.5) mEq/L Chloride 101 (98-109) mEq/L Carbon Dioxide 23 (19-29) mEq/L BUN 18 (8-26) mg/dL Creatinine 0.64 L (0.72-1.25) mg/dL Glucose 106 H (70-99) mg/dL Calcium 8.5 L (8.6-10.8) mg/dL Adrenal panel 07/22/16 Range/Units 05:15 Sodium 130 L (136-145) mEq/L Potassium 4.6 H (3.5-4.5) mEq/L Chloride 101 (98-109) mEq/L Carbon Dioxide 23 (19-29) mEq/L BUN 18 (8-26) mg/dL Creatinine 0.64 L (0.72-1.25) mg/dL Glucose 106 H (70-99) mg/dL Calcium 8.5 L (8.6-10.8) mg/dL - VTE Documentation of Mechanical Device: Intermittent pneumatic compression device Consult Discharge Plan - Plan [facility]: [facility] Provider[facility] - 08/02/16 1:30 pm - Attending Attestation I examined this patient and my medical decision-making was reviewed with the DENTAL RESIDENT/PA/Advanced Practice Nurse/Resident Physician. I agree with the documented findings, disposition and treatment plan as described except to the extent set forth below.
--- NOTE | 2016-07-22 11:27 | IR Progress Note ---
Vital Signs: Vital Signs/O2 Sat, Most Current Temp Pulse Resp BP Pulse Ox 98.1 F 90 18 112/82 96 07/22/16 07:14 07/22/16 08:10 07/22/16 07:14 07/22/16 07:14 07/22/16 08:10 Recent Labs: Lab Results 07/22/16 07/22/16 07/21/16 05:15 05:15 04:50 WBC 12.4 H 17.4 H RBC 3.01 L 2.97 L Hgb 7.7 L 7.8 L Hct 24.2 L 23.6 L MCV 80.4 L 79.5 L MCH 25.6 L 26.3 L MCHC 31.8 33.1 RDW 18.9 H 18.5 H Plt Count 623 H 570 H MPV 10.3 10.2 Neutrophils # 7.7 12.0 H Lymphocytes # 2.1 2.2 Monocytes # 1.6 H 2.0 H Eosinophils # 0.4 0.4 Basophils # 0.1 0.1 Sodium 130 L Potassium 4.6 H Chloride 101 Carbon Dioxide 23 BUN 18 Creatinine 0.64 L Est GFR ( Amer) > 60 Est GFR (Non-Af Amer) > 60 BUN/Creatinine Ratio 28 H Glucose 106 H Calcium 8.5 L 07/21/16 07/20/16 07/20/16 04:50 04:07 04:02 WBC 15.9 H RBC 2.74 L Hgb 7.3 L Hct 21.8 L MCV 79.6 L MCH 26.6 L MCHC 33.5 RDW 18.3 H Plt Count 501 H MPV 10.3 Neutrophils # 11.7 H Lymphocytes # 1.8 Monocytes # 1.4 H Eosinophils # 0.4 Basophils # 0.1 Sodium 130 L 131 L Potassium 4.5 4.3 Chloride 103 105 Carbon Dioxide 21 19 BUN 16 17 Creatinine 0.62 L 0.61 L Est GFR ( Amer) > 60 > 60 Est GFR (Non-Af Amer) > 60 > 60 BUN/Creatinine Ratio 26 28 H Glucose 86 109 H Calcium 8.4 L 8.0 L 07/19/16 10:49 WBC 15.1 H RBC 2.45 L Hgb 6.3 L Hct 19.4 L MCV 79.2 L MCH 25.7 L MCHC 32.5 RDW 18.6 H Plt Count 481 H MPV 10.6 Neutrophils # 11.4 H Lymphocytes # 1.9 Monocytes # 1.2 Eosinophils # 0.3 Basophils # 0.1 Sodium Potassium Chloride Carbon Dioxide BUN Creatinine Est GFR ( Amer) Est GFR (Non-Af Amer) BUN/Creatinine Ratio Glucose Calcium Assessment and Plan 66 year old man with small abscess in the RLQ. The abscess is surrounded by bowel and vessels, and is not ammenable to drain placement at this time. In addition, it appears smaller from the prior CT. Continued CT surveillance is suggested. The abscess enlarges, a repeat attempt at drainage can be performed.
[2016-07-22] MEDS: *HR* HYDROcodone/Acet 5/325 mg TABLET PO PRN ×2 (12:11→18:18)
[2016-07-22] MEDS: Fluconazole 100 MG/50 ML 100 MG/50 ML BAG IVPB SCH (12:11)
[2016-07-22] MEDS ORDERED: 0.9 % Sodium Chloride 250 ML ONE (12:50)
--- NOTE | 2016-07-22 14:40 | Internal Med Progress Note ---
Date of Encounter: 07/22/16 Time of Encounter: 10:00 - Assessment and plan (1) Perforated appendicitis Current Visit: Yes Status: Acute Assessment and plan: Patient likely has sepsis from intra-abdominal pathology due to perforated appendicitis and enteritis. Status post appendectomy, exploratory laparoscopy with small bowel enterotomy. Abdomen CT shows pelvic abscess. Not drainable. Off Zosyn now. Surgical consult is on case. Patient is at high risk because he need surgical intervention. (2) Acute encephalopathy Current Visit: Yes Status: Acute Assessment and plan: Likely related to complicated surgery, prolonged hospitalization and medication related- noted to be on antipsychotics and antidepressants at home which had to be held due to NG tube to suction. Improving; stop Precedex drip. Avoid further sedatives/hypnotics. Improvement in the mental status now. AAO x 3. (3) HCAP (healthcare-associated pneumonia) Current Visit: Yes Status: Acute Assessment and plan: Patient's respiratory distress have significantly improved. Finish the antibiotic course. 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 Swallow evaluation done, recommendation would be followed. (5) DVT prophylaxis Current Visit: Yes Status: Acute Assessment and plan: on lovenox - Time Spent With Patient Greater than 35 minutes - Subjective Interval history: Patient is a 66-year-old male admitted for sepsis and perforated appendicitis. The patient had the surgery done. His past medical history is significant for GI bleeding, hepatitis, hypertension. Patient was seen and examined. He is awake alert, oriented 3. No cough, no shortness of breath. Had a bowel movement and can pass gas. Advance diet per surgical team. TPN is trying to taper down. leukocytosis has improved. Pelvic abscess is not drainable per IR. Off antibiotics now. Close monitoring. - Constitutional Vitals: Temp Pulse Resp BP Pulse Ox 98.2 F 88 22 107/76 97 07/22/16 13:28 07/22/16 13:28 07/22/16 13:28 07/22/16 13:28 07/22/16 13:28 General appearance: Present: A&O X 3 Internal Medicine: Result - Labs CBC & Chem 7: 07/22/16 05:15 07/22/16 05:15 Labs: Short CBC 07/22/16 Range/Units 05:15 WBC 12.4 H (4.3-11.1) K/mcL Hgb 7.7 L (12.9-16.9) g/dL Hct 24.2 L (37.5-50.1) % Plt Count 623 H (140-400) K/mcL Neutrophils # 7.7 (1.6-8.9) K/mcL BMP 07/22/16 05:15 Sodium 130 L Potassium 4.6 H Chloride 101 Carbon Dioxide 23 BUN 18 Creatinine 0.64 L Glucose 106 H Calcium 8.5 L - ABG Interpretation ABG results: ABG ABG pH 7.41 pH Units (7.32-7.45) 07/14/16 02:38 ABG pCO2 42 mmHg (35-45) 07/14/16 02:38 ABG pO2 126 mmHg (85-104) H 07/14/16 02:38 ABG O2 Saturation 99 % (95-98) H 07/14/16 02:38 PT/INR, D-dimer PT 15.0 Seconds (9.4-12.1) H 07/21/16 14:25 - Impressions Impressions Needle Aspiration CT 07/22/16 00:00 IMPRESSION: There is a small fluid collection in the right lower quadrant, which is small and in a poor location for drain placement at this time. Continued CT surveillance is recommended. If the collection enlarges, a repeat attempt at drain placement can be considered. This was discussed with Kelley Stoll at the conclusion of the CT. D/ / 07/22/2016 10:46:43 Vishal Sheth MD / [facility] Interpreting Provider: Vishal Sheth MD - VTE Documentation of Mechanical Device: Intermittent pneumatic compression device Consult Discharge Plan - Plan Referrals: [facility] [Primary Care Provider] - 08/02/16 1:30 pm
[2016-07-22] MEDS: [UNRECOGNIZED DRUG - OTHER] IV SCH (17:51)
[2016-07-22] MEDS: AMINO ACIDS 10% IV SCH (17:51)
[2016-07-22] MEDS: CLINIMIX E IV SCH (17:51)
[2016-07-22] MEDS: MVI IV SCH (17:51)
[2016-07-22] MEDS: OLANZapine 10 MG TAB.RAPDIS PO SCH (17:52)
[2016-07-23] MEDS: *HR* HYDROcodone/Acet 5/325 mg TABLET PO PRN ×3 (00:49→18:34)
[2016-07-23] MEDS: Ipratropium/Albuterol Neb 3 ML IH SCH ×4 (04:50→21:17)
[2016-07-23 04:55] LABS: Basophils # 0.2 K/mcL (0.0-0.2); Basophils % 1.3 %; Eosinophils # 0.4 K/mcL (0.0-0.6); Eosinophils % 3.7 %; Hematocrit 28.3 % (37.5-50.1); Hemoglobin 9.1 g/dL (12.9-16.9); Immature Granulocytes % 2.6 % (0-4); Lymphocytes # 2.5 K/mcL (0.6-4.6); Lymphocytes % 22.1 %; Mean Corpuscular HGB Conc 32.2 g/dL (31.6-35.5); Mean Corpuscular Volume 80.9 fL (83.0-100.0); Monocytes # 1.4 K/mcL (0.0-1.3); Monocytes % 12.6 %; Neutrophils # 6.5 K/mcL (1.6-8.9); Platelet Count 680 K/mcL (140-400); Red Cell Distribution Width 18.4 % (11.5-14.5); Segmented Neutrophils % 57.7 %
[2016-07-23 05:21] LABS: BUN/Creatinine Ratio 30 (6-26); Blood Urea Nitrogen 22 mg/dL (8-26); Carbon Dioxide 22 mEq/L (19-29); Chloride 101 mEq/L (98-109); Glucose 86 mg/dL (70-99); Osmolality,Calculated 273 (280-300); Potassium 4.9 mEq/L (3.5-4.5); Sodium 130 mEq/L (136-145); eGFR For African Americans > 60 (> 60); eGFR For Non-African Americans > 60 (> 60)
[2016-07-23] MEDS: *HR* Enoxaparin 40 MG/0.4 ML SYRINGE SQ SCH (07:38)
[2016-07-23] MEDS: Nicotine 14 MG PATCH.TD24 TD SCH (09:00)
[2016-07-23] MEDS: Famotidine 20 MG TABLET PO SCH ×2 (09:00→20:42)
[2016-07-23] MEDS: OLANZapine 5 MG TAB.RAPDIS PO SCH (09:00)
[2016-07-23] MEDS: Fluconazole 100 MG/50 ML 100 MG/50 ML BAG IVPB SCH (11:03)
[2016-07-23] MEDS: 0.9 % Sodium Chloride 1,000 ML IVC SCH (11:03)
[2016-07-23] MEDS: Ketorolac 30 MG/ML VIAL IVP PRN (12:14)
--- NOTE | 2016-07-23 12:21 | Internal Med Progress Note ---
Date of Encounter: 07/23/16 Time of Encounter: 10:00 - Assessment and plan (1) Perforated appendicitis Current Visit: Yes Status: Acute Assessment and plan: Patient likely has sepsis from intra-abdominal pathology due to perforated appendicitis and enteritis. Status post appendectomy, exploratory laparoscopy with small bowel enterotomy. Abdomen CT shows pelvic abscess. Not drainable. Off Zosyn now. Surgical consult is on case. Patient is at high risk because he need surgical intervention. (2) Acute encephalopathy Current Visit: Yes Status: Acute Assessment and plan: Improved in the mental status now. AAO x 3. (3) HCAP (healthcare-associated pneumonia) Current Visit: Yes Status: Resolved Assessment and plan: Patient's respiratory distress have significantly improved. Finish the antibiotic course. 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 Swallow evaluation done, recommendation will be followed. (5) DVT prophylaxis Current Visit: Yes Status: Acute Assessment and plan: on lovenox - Time Spent With Patient Greater than 35 minutes - Subjective Interval history: Patient is a 66-year-old male admitted for sepsis and perforated appendicitis. The patient had the surgery done. His past medical history is significant for GI bleeding, hepatitis, hypertension. Patient was seen and examined. He is awake alert, oriented 3. No cough, no shortness of breath. Had a bowel movement and can pass gas. Advance diet per surgical team. TPN is discontinued. leukocytosis has improved. Pelvic abscess is not drainable per IR. Off antibiotics now. Close monitoring. - Constitutional Vitals: Temp Pulse Resp BP Pulse Ox 98.2 F 89 18 94/57 97 07/23/16 11:04 07/23/16 11:04 07/23/16 11:04 07/23/16 11:04 07/23/16 11:04 General appearance: Present: A&O X 3 - Head Head exam: Present: atraumatic, normocephalic - Eye Eye exam: Present: PERRL, conjuntiva pink, sclera anicteric Pupils: Present: PERRL - Neck Neck exam general surgery: Present: supple, trachea midline. Absent: lymphadenopathy - Respiratory Respiratory exam: Present: CTAB. Absent: accessory muscle use, rales, rhonchi, wheezes - Cardiovascular Cardiovascular exam: Present: RRR, +S1, +S2. Absent: diastolic murmur, gallop, rubs, systolic murmur - GI/Abdominal GI/Abdominal exam: Present: normal bowel sounds, soft, no peritoneal signs. Absent: distended, tenderness - Extremities Exam Extremities exam: Present: warm, radial pulses palpable and symetrical. Absent : calf tenderness, cyanotic, pedal edema - Neurological Exam Neurological exam: Present: CN II-XII intact, oriented X3, no focal deficits. Absent: pronater drift, facial droop, speech deficit - Skin Skin exam: Present: dry, intact Internal Medicine: Result - Labs CBC & Chem 7: 07/23/16 04:35 07/23/16 04:35 Labs: Short CBC 07/23/16 Range/Units 04:35 WBC 11.3 H (4.3-11.1) K/mcL Hgb 9.1 L (12.9-16.9) g/dL Hct 28.3 L (37.5-50.1) % Plt Count 680 H (140-400) K/mcL Neutrophils # 6.5 (1.6-8.9) K/mcL BMP 07/23/16 04:35 Sodium 130 L Potassium 4.9 H Chloride 101 Carbon Dioxide 22 BUN 22 Creatinine 0.74 Glucose 86 Calcium 9.0 - ABG Interpretation ABG results: ABG ABG pH 7.41 pH Units (7.32-7.45) 07/14/16 02:38 ABG pCO2 42 mmHg (35-45) 07/14/16 02:38 ABG pO2 126 mmHg (85-104) H 07/14/16 02:38 ABG O2 Saturation 99 % (95-98) H 07/14/16 02:38 PT/INR, D-dimer PT 15.0 Seconds (9.4-12.1) H 07/21/16 14:25 - Impressions Impressions Videofluoroscopic Swallow 07/20/16 00:01 IMPRESSION: Episode of deep laryngeal penetration with thin barium by straw. No evidence of aspiration. Please see separate speech pathology report for full discussion of findings and recommendations. D/ / 07/20/2016 09:33:54 Praneeth Vasquez MD / [facility] Interpreting Provider: Praneeth Vasquez MD Needle Aspiration CT 07/22/16 00:00 IMPRESSION: There is a small fluid collection in the right lower quadrant, which is small and in a poor location for drain placement at this time. Continued CT surveillance is recommended. If the collection enlarges, a repeat attempt at drain placement can be considered. This was discussed with Kelley Stoll at the conclusion of the CT. D/ / 07/22/2016 10:46:43 Vishal Sheth MD / [facility] Interpreting Provider: Vishal Sheth MD - VTE Documentation of Mechanical Device: Intermittent pneumatic compression device Consult Discharge Plan - Plan [facility]errals: [facility] [Primary Care Provider] - 08/02/16 1:30 pm
--- NOTE | 2016-07-23 14:01 | General Surgery Progress Note ---
Date of Encounter: 07/23/16 Time of Encounter: 09:30 - Assessment and Plan (1) Perforated appendicitis Current Visit: Yes Status: Acute POD #10 exploratory lap, SHANNON, repair of SB enterotomy Continue mechanical soft diet with nectar thick liquids TPN stopped Supportive care/pain control PT/OT daily Will continue to follow CT scan on 07/22/16 showed 3.9 X 3.1cm fluid collection- IR unable to drain safely due to location Continue diflucan 100mg daily IVPB (2) HCAP (healthcare-associated pneumonia) Current Visit: Yes Status: Resolved Management per pulmonary/medicine service Zosyn discontinued 07/21 (3) Anemia Current Visit: Yes Status: Acute Received 1 unite pRBC yesterday. Hgb 6.3>7.3>7.7>9.1 Qualifiers: Anemia type: other cause Other causes of anemia: other cause, not classified Qualified Code(s): D64.89 - Other specified anemias (4) History of dysphagia Current Visit: Yes Status: Chronic Speech therapy consulted to evaluate and make recommendations for oral intake Continue mechanical soft diet (5) DVT prophylaxis Current Visit: Yes Status: Acute Continue Lovenox 40mg daily for DVT prophylaxis Subjective Patient reports: no new complaints, feels better, still having pain, pain is less, tolerating a regular diet (mechanical soft diet and nectar thicken liquids ), flatus, bowel movement, afebrile Objective Vital Signs - Last 8 Hours Temp Pulse Resp BP Pulse Ox 07/23/16 13:00 81 96 07/23/16 11:04 98.2 F 89 18 94/57 97 07/23/16 10:59 96 97 07/23/16 08:54 98 96 07/23/16 07:43 90 07/23/16 07:23 97.8 F 112 16 133/81 96 Intake and Output 07/22/16 07/23/16 07/23/16 23:59 07:59 15:59 Intake Total 2737 / 2737 240 / 240 Output Total 250 / 250 800 / 800 300 / 300 Balance 2487 / 2487 -800 / -800 -60 / -60 Intake: IV Fluids 2136 Clinimix E 5%-20% 2136 SOLUTION 2,000 ML Trophamine 300 ML @ 95.8 mls/hr IV .Q24H MICHAELA with M.v.i. Adult 10 ml Rx#: [id number] Oral 600 / 600 240 / 240 Output: Urine 250 / 250 800 / 800 300 / 300 Other: Meal Dinner Lunch Percent of Meal Consumed 30% 40% Stool Size Moderate Stool Consistency loose Stool Color Brown # Bowel Movements 1 Weight 89.3 kg Blood Glucose* 101 78 Patient Weight 07/23/16 23:59 Weight 89.3 kg - General physical appearance well developed, no distress, other (out of bed to chair) - Eyes normal ocular movement - ENT normal mucosa, atraumatic, normocephalic - Neck Neck exam: trachea midline - Respiratory normal respiratory effort, clear to auscultation - Cardiovascular Cardiovascular exam: Present: tachycardia - Abdomen Abdomen: Present: bowel sounds present, soft, tender (mild, expected post- operative tenderness), wound (Midline with packing intact- small amount of serous drainage noted without erythema or induration) - Incision Incision: Present: open (midline with adina with small open area draining minimal amount of serous drainage) - Integumentary no rash - Neurologic CN 2-12 grossly intact - Musculoskeletal other (moderate deconditioning) - Psychiatric oriented to time, oriented to person, oriented to place, speech is normal, memory intact - Labs 07/23/16 04:35 07/23/16 04:35 Diabetes panel 07/23/16 Range/Units 04:35 Sodium 130 L (136-145) mEq/L Potassium 4.9 H (3.5-4.5) mEq/L Chloride 101 (98-109) mEq/L Carbon Dioxide 22 (19-29) mEq/L BUN 22 (8-26) mg/dL Creatinine 0.74 (0.72-1.25) mg/dL Glucose 86 (70-99) mg/dL Calcium 9.0 (8.6-10.8) mg/dL Calcium panel 07/23/16 Range/Units 04:35 Calcium 9.0 (8.6-10.8) mg/dL Pituitary panel 07/23/16 Range/Units 04:35 Sodium 130 L (136-145) mEq/L Potassium 4.9 H (3.5-4.5) mEq/L Chloride 101 (98-109) mEq/L Carbon Dioxide 22 (19-29) mEq/L BUN 22 (8-26) mg/dL Creatinine 0.74 (0.72-1.25) mg/dL Glucose 86 (70-99) mg/dL Calcium 9.0 (8.6-10.8) mg/dL Adrenal panel 07/23/16 Range/Units 04:35 Sodium 130 L (136-145) mEq/L Potassium 4.9 H (3.5-4.5) mEq/L Chloride 101 (98-109) mEq/L Carbon Dioxide 22 (19-29) mEq/L BUN 22 (8-26) mg/dL Creatinine 0.74 (0.72-1.25) mg/dL Glucose 86 (70-99) mg/dL Calcium 9.0 (8.6-10.8) mg/dL - VTE Documentation of Mechanical Device: Intermittent pneumatic compression device Consult Discharge Plan - Plan Referrals: [facility] [Primary Care Provider] - 08/02/16 1:30 pm
[2016-07-23] MEDS: OLANZapine 10 MG TAB.RAPDIS PO SCH (18:28)
[2016-07-23] MEDS: *HR* HYDROmorphone (PF) 1 MG/ML SYRINGE IVP PRN (20:41)
[2016-07-24] MEDS: Ipratropium/Albuterol Neb 3 ML IH SCH ×4 (03:32→22:37)
[2016-07-24] MEDS: 0.9 % Sodium Chloride 1,000 ML IVC SCH (04:42)
[2016-07-24] MEDS: *HR* HYDROcodone/Acet 5/325 mg TABLET PO PRN ×2 (04:44→12:25)
[2016-07-24 05:45] LABS: Basophils # 0.1 K/mcL (0.0-0.2); Basophils % 1.1 %; Eosinophils # 0.3 K/mcL (0.0-0.6); Eosinophils % 3.5 %; Hematocrit 25.2 % (37.5-50.1); Hemoglobin 8.2 g/dL (12.9-16.9); Immature Granulocytes % 1.6 % (0-4); Lymphocytes # 1.8 K/mcL (0.6-4.6); Lymphocytes % 20.1 %; Mean Corpuscular HGB Conc 32.5 g/dL (31.6-35.5); Mean Corpuscular Hemoglobin 26.8 pg (28.0-33.3); Mean Corpuscular Volume 82.4 fL (83.0-100.0); Mean Platelet Volume 9.7 fL (9.4-12.4); Monocytes # 1.1 K/mcL (0.0-1.3); Monocytes % 12.7 %; Neutrophils # 5.4 K/mcL (1.6-8.9); Platelet Count 654 K/mcL (140-400); Red Blood Count 3.06 M/mcL (4.19-5.50); Red Cell Distribution Width 18.3 % (11.5-14.5)
[2016-07-24 05:58] LABS: BUN/Creatinine Ratio 36 (6-26); Blood Urea Nitrogen 26 mg/dL (8-26); Calcium 7.8 mg/dL (8.6-10.8); Carbon Dioxide 20 mEq/L (19-29); Chloride 108 mEq/L (98-109); Glucose 83 mg/dL (70-99); Osmolality,Calculated 282 (280-300); Potassium 4.3 mEq/L (3.5-4.5); Sodium 134 mEq/L (136-145); eGFR For African Americans > 60 (> 60); eGFR For Non-African Americans > 60 (> 60)
[2016-07-24] MEDS: *HR* HYDROmorphone (PF) 1 MG/ML SYRINGE IVP PRN ×3 (09:00→20:49)
[2016-07-24] MEDS: Famotidine 20 MG TABLET PO SCH ×2 (09:04→20:49)
[2016-07-24] MEDS: *HR* Enoxaparin 40 MG/0.4 ML SYRINGE SQ SCH (09:04)
[2016-07-24] MEDS: Fluconazole 100 MG/50 ML 100 MG/50 ML BAG IVPB SCH (09:05)
[2016-07-24] MEDS: OLANZapine 5 MG TAB.RAPDIS PO SCH (09:05)
[2016-07-24] MEDS: Nicotine 14 MG PATCH.TD24 TD SCH (09:05)
--- NOTE | 2016-07-24 14:06 | General Surgery Progress Note ---
Date of Encounter: 07/24/16 Time of Encounter: 13:25 - Assessment and Plan (1) Perforated appendicitis Current Visit: Yes Status: Acute POD #11 exploratory lap, SHANNON, repair of SB enterotomy Continue mechanical soft diet with nectar thick liquids TPN stopped Supportive care/pain control PT/OT daily CT scan on 07/22/16 showed 3.9 X 3.1cm fluid collection- IR unable to drain safely due to location Continue diflucan 100mg daily IVPB Likely discharge tomorrow to rehab or to the care of Jacinda (patient's sister). (2) HCAP (healthcare-associated pneumonia) Current Visit: Yes Status: Resolved Management per pulmonary/medicine service Zosyn discontinued 07/21 (3) Anemia Current Visit: Yes Status: Acute Last received 1 unite pRBC 07/22/16. Hgb 6.3>7.3>7.7>9.1>8.2 Qualifiers: Anemia type: other cause Other causes of anemia: other cause, not classified Qualified Code(s): D64.89 - Other specified anemias (4) History of dysphagia Current Visit: Yes Status: Chronic Speech therapy consulted to evaluate and make recommendations for oral intake Continue mechanical soft diet (5) DVT prophylaxis Current Visit: Yes Status: Acute Continue Lovenox 40mg daily for DVT prophylaxis Subjective Patient reports: no new complaints, feels better, still having pain, pain is less, tolerating a regular diet (ground meats), flatus, bowel movement, afebrile Objective Vital Signs - Last 8 Hours Temp Pulse Resp BP Pulse Ox 07/24/16 12:07 98.0 F 84 14 122/80 96 07/24/16 10:00 16 96 07/24/16 07:49 97.4 F L 84 16 101/53 96 Intake and Output 07/23/16 07/24/16 07/24/16 23:59 07:59 15:59 Intake Total 50 / 50 1520 / 1520 360 / 360 Output Total 250 / 250 475 / 475 225 / 225 Balance -200 / -200 1045 / 1045 135 / 135 Intake: IV Fluids 50 / 50 1000 / 1000 0.9 % Sodium Chloride 1, 1000 / 1000 000 ML @ 60 mls/hr IVC . [id number] [facility] Rx#: [id number] Diflucan 100 MG/50 ML 100 50 / 50 mg In 50 ml @ 50 mls/hr IVPB 1030 [facility] Rx#: [id number] Oral 0 / 0 520 / 520 360 / 360 Output: Urine 250 / 250 475 / 475 225 / 225 Other: Meal Dinner Lunch Percent of Meal Consumed 10% 30% Stool Size Small Stool Consistency loose liquid Stool Characteristics Pasty Stool Color Brown Weight 98.2 kg Patient Weight 07/24/16 23:59 Weight 98.2 kg - General physical appearance well developed, no distress - Eyes normal ocular movement - ENT normal mucosa, atraumatic, normocephalic - Neck Neck exam: trachea midline - Respiratory normal respiratory effort, clear to auscultation - Cardiovascular Cardiovascular exam: Present: tachycardia - Abdomen Abdomen: Present: bowel sounds present, soft, tender (mild, expected post- operative tenderness), wound (Midline with packing intact) - Incision Incision: Present: open (midline with adina, small inferior opening to incision with packing) - Integumentary no rash - Neurologic CN 2-12 grossly intact - Musculoskeletal other (moderate deconditioning) - Psychiatric oriented to time, oriented to person, oriented to place, speech is normal, memory intact - Labs 07/24/16 05:25 07/24/16 05:25 Diabetes panel 07/24/16 Range/Units 05:25 Sodium 134 L (136-145) mEq/L Potassium 4.3 (3.5-4.5) mEq/L Chloride 108 (98-109) mEq/L Carbon Dioxide 20 (19-29) mEq/L BUN 26 (8-26) mg/dL Creatinine 0.72 (0.72-1.25) mg/dL Glucose 83 (70-99) mg/dL Calcium 7.8 L (8.6-10.8) mg/dL Calcium panel 07/24/16 Range/Units 05:25 Calcium 7.8 L (8.6-10.8) mg/dL Pituitary panel 07/24/16 Range/Units 05:25 Sodium 134 L (136-145) mEq/L Potassium 4.3 (3.5-4.5) mEq/L Chloride 108 (98-109) mEq/L Carbon Dioxide 20 (19-29) mEq/L BUN 26 (8-26) mg/dL Creatinine 0.72 (0.72-1.25) mg/dL Glucose 83 (70-99) mg/dL Calcium 7.8 L (8.6-10.8) mg/dL Adrenal panel 07/24/16 Range/Units 05:25 Sodium 134 L (136-145) mEq/L Potassium 4.3 (3.5-4.5) mEq/L Chloride 108 (98-109) mEq/L Carbon Dioxide 20 (19-29) mEq/L BUN 26 (8-26) mg/dL Creatinine 0.72 (0.72-1.25) mg/dL Glucose 83 (70-99) mg/dL Calcium 7.8 L (8.6-10.8) mg/dL - VTE Documentation of Mechanical Device: Intermittent pneumatic compression device Consult Discharge Plan - Plan Referrals: AN[facility]EL[facility]P [Primary Care Provider] - 08/02/16 1:30 pm
--- NOTE | 2016-07-24 14:37 | Internal Med Progress Note ---
Date of Encounter: 07/24/16 Time of Encounter: 10:00 - Assessment and plan (1) Perforated appendicitis Current Visit: Yes Status: Acute Assessment and plan: Patient likely has sepsis from intra-abdominal pathology due to perforated appendicitis and enteritis. Status post appendectomy, exploratory laparoscopy with small bowel enterotomy. Abdomen CT shows pelvic abscess. Not drainable. Off Zosyn now. Surgical consult is on case. Patient is at high risk because he need surgical intervention. (2) Acute encephalopathy Current Visit: Yes Status: Acute Assessment and plan: Improved in the mental status now. AAO x 3. (3) HCAP (healthcare-associated pneumonia) Current Visit: Yes Status: Resolved Assessment and plan: Patient's respiratory distress have significantly improved. Finish the antibiotic course. 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 Swallow evaluation done, recommendation will be followed. (5) DVT prophylaxis Current Visit: Yes Status: Acute Assessment and plan: on lovenox - Time Spent With Patient Greater than 35 minutes - Subjective Interval history: Patient is a 66-year-old male admitted for sepsis and perforated appendicitis. The patient had the surgery done. His past medical history is significant for GI bleeding, hepatitis, hypertension. Patient was seen and examined. He is awake alert, oriented 3. No cough, no shortness of breath. Had bowel movement and can pass gas. Advance diet per surgical team. TPN is discontinued. leukocytosis has improved. Pelvic abscess is not drainable per IR. Off antibiotics now. Close monitoring. Planning for discharge tomorrow per surgical team. - Constitutional Vitals: Temp Pulse Resp BP Pulse Ox 98.0 F 84 14 122/80 96 07/24/16 12:07 07/24/16 12:07 07/24/16 12:07 07/24/16 12:07 07/24/16 12:07 General appearance: Present: A&O X 3 - Head Head exam: Present: atraumatic, normocephalic - Eye Eye exam: Present: PERRL, conjuntiva pink, sclera anicteric Pupils: Present: PERRL - Neck Neck exam general surgery: Present: supple, trachea midline. Absent: lymphadenopathy - Respiratory Respiratory exam: Present: CTAB. Absent: accessory muscle use, rales, rhonchi, wheezes - Cardiovascular Cardiovascular exam: Present: RRR, +S1, +S2. Absent: diastolic murmur, gallop, rubs, systolic murmur - GI/Abdominal GI/Abdominal exam: Present: normal bowel sounds, soft, no peritoneal signs. Absent: distended, tenderness - Extremities Exam Extremities exam: Present: warm, radial pulses palpable and symetrical. Absent : calf tenderness, cyanotic, pedal edema - Neurological Exam Neurological exam: Present: CN II-XII intact, oriented X3, no focal deficits. Absent: pronater drift, facial droop, speech deficit - Skin Skin exam: Present: dry, intact Internal Medicine: Result - Labs CBC & Chem 7: 07/24/16 05:25 07/24/16 05:25 Labs: Short CBC 07/24/16 Range/Units 05:25 WBC 8.8 (4.3-11.1) K/mcL Hgb 8.2 L (12.9-16.9) g/dL Hct 25.2 L (37.5-50.1) % Plt Count 654 H (140-400) K/mcL Neutrophils # 5.4 (1.6-8.9) K/mcL BMP 07/24/16 05:25 Sodium 134 L Potassium 4.3 Chloride 108 Carbon Dioxide 20 BUN 26 Creatinine 0.72 Glucose 83 Calcium 7.8 L - ABG Interpretation ABG results: ABG ABG pH 7.41 pH Units (7.32-7.45) 07/14/16 02:38 ABG pCO2 42 mmHg (35-45) 07/14/16 02:38 ABG pO2 126 mmHg (85-104) H 07/14/16 02:38 ABG O2 Saturation 99 % (95-98) H 07/14/16 02:38 PT/INR, D-dimer PT 15.0 Seconds (9.4-12.1) H 07/21/16 14:25 - VTE Documentation of Mechanical Device: Intermittent pneumatic compression device Consult Discharge Plan - Plan Referrals: ANGELPCP [Primary Care Provider] - 08/02/16 1:30 pm
[2016-07-24] MEDS: OLANZapine 10 MG TAB.RAPDIS PO SCH (18:01)
[2016-07-25] MEDS: 0.9 % Sodium Chloride 1,000 ML IVC SCH (00:35)
[2016-07-25] MEDS: Ipratropium/Albuterol Neb 3 ML IH SCH ×4 (03:21→21:15)
[2016-07-25] MEDS: *HR* Enoxaparin 40 MG/0.4 ML SYRINGE SQ SCH (08:34)
[2016-07-25] MEDS: Famotidine 20 MG TABLET PO SCH ×2 (08:34→20:50)
[2016-07-25] MEDS: *HR* HYDROcodone/Acet 5/325 mg TABLET PO PRN ×3 (08:35→18:40)
[2016-07-25] MEDS: Nicotine 14 MG PATCH.TD24 TD SCH (08:35)
[2016-07-25] MEDS: OLANZapine 5 MG TAB.RAPDIS PO SCH (08:35)
[2016-07-25] MEDS: Fluconazole 100 MG TABLET PO SCH (11:00)
--- NOTE | 2016-07-25 12:48 | Internal Med Progress Note ---
Date of Encounter: 07/25/16 Time of Encounter: 09:00 - Assessment and plan (1) Perforated appendicitis Current Visit: Yes Status: Acute Assessment and plan: Patient likely has sepsis from intra-abdominal pathology due to perforated appendicitis and enteritis. Status post appendectomy, exploratory laparoscopy with small bowel enterotomy. Abdomen CT shows pelvic abscess. Not drainable. Off Zosyn now. Surgical consult is on case. Patient is at high risk because he need surgical intervention. (2) Acute encephalopathy Current Visit: Yes Status: Acute Assessment and plan: Improved in the mental status now. AAO x 3. (3) HCAP (healthcare-associated pneumonia) Current Visit: Yes Status: Resolved Assessment and plan: Patient's respiratory distress have significantly improved. Finish the antibiotic course. 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 Swallow evaluation done, recommendation will be followed. (5) DVT prophylaxis Current Visit: Yes Status: Acute Assessment and plan: on lovenox - Time Spent With Patient Greater than 35 minutes - Subjective Interval history: Patient is a 66-year-old male admitted for sepsis and perforated appendicitis. The patient had the surgery done. His past medical history is significant for GI bleeding, hepatitis, hypertension. Patient was seen and examined. He is awake alert, oriented 3. No cough, no shortness of breath. Had bowel movement and can pass gas. Advance diet per surgical team. TPN is discontinued. leukocytosis has improved. Pelvic abscess is not drainable per IR. Off antibiotics now. Close monitoring. Planning for discharge. SW working on plan. - Constitutional Vitals: Temp Pulse Resp BP Pulse Ox 98.3 F 85 17 101/32 93 L 07/25/16 12:00 07/25/16 12:00 07/25/16 12:00 07/25/16 12:00 07/25/16 12:00 General appearance: Present: A&O X 3, no acute distress, answers questions appropriately - Head Head exam: Present: atraumatic, normocephalic - Eye Eye exam: Present: PERRL, conjuntiva pink, sclera anicteric Pupils: Present: PERRL - Neck Neck exam general surgery: Present: supple, trachea midline. Absent: lymphadenopathy - Respiratory Respiratory exam: Present: CTAB. Absent: accessory muscle use, rales, rhonchi, wheezes - Cardiovascular Cardiovascular exam: Present: RRR, +S1, +S2. Absent: diastolic murmur, gallop, rubs, systolic murmur - GI/Abdominal GI/Abdominal exam: Present: normal bowel sounds, soft, tenderness, no peritoneal signs. Absent: distended - Extremities Exam Extremities exam: Present: warm, radial pulses palpable and symetrical. Absent : calf tenderness, cyanotic, pedal edema - Neurological Exam Neurological exam: Present: CN II-XII intact, oriented X3, no focal deficits. Absent: pronater drift, facial droop, speech deficit - Skin Skin exam: Present: dry, intact Internal Medicine: Result - Labs CBC & Chem 7: 07/24/16 05:25 07/24/16 05:25 - ABG Interpretation ABG results: ABG ABG pH 7.41 pH Units (7.32-7.45) 07/14/16 02:38 ABG pCO2 42 mmHg (35-45) 07/14/16 02:38 ABG pO2 126 mmHg (85-104) H 07/14/16 02:38 ABG O2 Saturation 99 % (95-98) H 07/14/16 02:38 PT/INR, D-dimer PT 15.0 Seconds (9.4-12.1) H 07/21/16 14:25 - VTE Documentation of Mechanical Device: Intermittent pneumatic compression device Consult Discharge Plan - Plan Referrals: ANGEL,PCP [Primary Care Provider] - 08/02/16 1:30 pm
--- NOTE | 2016-07-25 14:03 | General Surgery Progress Note ---
Date of Encounter: 07/25/16 Time of Encounter: 08:50 - Assessment and Plan (1) Perforated appendicitis Current Visit: Yes Status: Acute POD #12 exploratory lap, SHANNON, repair of SB enterotomy Continue mechanical soft diet with nectar thick liquids TPN stopped Supportive care/pain control PT/OT daily CT scan on 07/22/16 showed 3.9 X 3.1cm fluid collection- IR unable to drain safely due to location Continue diflucan 100mg daily IVPB (2) HCAP (healthcare-associated pneumonia) Current Visit: Yes Status: Resolved Management per pulmonary/medicine service Zosyn discontinued 07/21 (3) Anemia Current Visit: Yes Status: Acute Last received 1 unite pRBC 07/22/16. Hgb 6.3>7.3>7.7>9.1>8.2 yesterday No new labs today Qualifiers: Anemia type: other cause Other causes of anemia: other cause, not classified Qualified Code(s): D64.89 - Other specified anemias (4) History of dysphagia Current Visit: Yes Status: Chronic Speech therapy consulted to evaluate and make recommendations for oral intake Continue mechanical soft diet (5) DVT prophylaxis Current Visit: Yes Status: Acute Continue Lovenox 40mg daily for DVT prophylaxis Subjective Patient reports: no new complaints, feels better, pain is less, tolerating a regular diet, flatus, bowel movement, afebrile Objective Vital Signs - Last 8 Hours Temp Pulse Resp BP Pulse Ox 07/25/16 13:15 98.3 F 85 17 101/32 93 L 07/25/16 12:00 98.3 F 85 17 101/32 93 L 07/25/16 11:43 98.3 F 85 17 101/32 93 L 07/25/16 11:00 98.3 F 85 17 101/32 93 L 07/25/16 10:50 18 119/90 92 L 07/25/16 09:05 98.2 F 87 18 119/90 92 L 07/25/16 08:15 98.2 F 87 18 119/90 92 L 07/25/16 07:57 98.2 F 87 18 119/90 92 L Intake and Output 07/24/16 07/25/16 07/25/16 23:59 07:59 15:59 Intake Total 1000 / 1000 200 / 200 300 / 300 Output Total 425 / 425 175 / 175 700 / 700 Balance 575 / 575 -400 / -400 Intake: IV Fluids 1000 / 1000 0.9 % Sodium Chloride 1, 1000 / 1000 000 ML @ 60 mls/hr IVC . [id number] MICHAELA Rx#: [id number] Oral 0 / 0 200 / 200 300 / 300 Output: Urine 375 / 375 175 / 175 600 / 600 Other 50 / 50 Catheter 100 / 100 Other: Meal Dinner Lunch Percent of Meal Consumed 100% 30% # Voids 1 - General physical appearance well developed, well nourished - Eyes normal ocular movement - ENT normal mucosa - Neck Neck exam: trachea midline - Respiratory normal respiratory effort crackles: bilateral (bases) - Cardiovascular Cardiovascular exam: Present: RRR - Abdomen Abdomen: Present: bowel sounds present, soft, non tender - Incision Incision: Present: open (midline with adina, small inferior opening to incision with packing) - Integumentary no rash - Neurologic CN 2-12 grossly intact - Musculoskeletal normal posture - Psychiatric oriented to time, oriented to person, oriented to place, speech is normal, memory intact - Labs 07/24/16 05:25 07/24/16 05:25 - VTE Documentation of Mechanical Device: Intermittent pneumatic compression device Consult Discharge Plan - Plan Additional Instructions: Wound care: cleans midline with soap and water, pack with 1/2 inch of plain gauze, cover with 4x4, and tape to secure daily PT/OT daily Followup with outpatient appointment 08/09 at 10:50 [facility]errals: [facility] [[facility] Provider[facility] - 08/02/16 1:30 pm Telly Boothe DO [Partnered Physician] - 08/09/16 10:50 am - Attending Attestation I examined this patient and my medical decision-making was reviewed with the [employer]/PA/Advanced Practice Nurse/Resident Physician. I agree with the documented findings, disposition and treatment plan as described except to the extent set forth below.
[2016-07-25 15:10] LABS: Hematocrit 26.8 % (37.5-50.1); Hemoglobin 8.6 g/dL (12.9-16.9)
[2016-07-25] MEDS: OLANZapine 10 MG TAB.RAPDIS PO SCH (18:40)
[2016-07-26] MEDS: Ipratropium/Albuterol Neb 3 ML IH SCH ×3 (03:39→16:02)
[2016-07-26] MEDS: *HR* Enoxaparin 40 MG/0.4 ML SYRINGE SQ SCH (06:02)
[2016-07-26] MEDS: OLANZapine 5 MG TAB.RAPDIS PO SCH (09:06)
[2016-07-26] MEDS: Nicotine 14 MG PATCH.TD24 TD SCH (09:06)
[2016-07-26] MEDS: Famotidine 20 MG TABLET PO SCH (09:06)
[2016-07-26] MEDS: Fluconazole 100 MG TABLET PO SCH (09:06)
[2016-07-26] MEDS: *HR* HYDROcodone/Acet 5/325 mg TABLET PO PRN ×2 (09:07→15:45)
--- NOTE | 2016-07-26 10:19 | General Surgery Progress Note ---
Date of Encounter: 07/26/16 Time of Encounter: 10:00 - Assessment and Plan (1) Perforated appendicitis Current Visit: Yes Status: Acute POD #13 exploratory lap, SHANNON, repair of SB enterotomy Continue mechanical soft diet with nectar thick liquids TPN stopped Supportive care/pain control PT/OT daily CT scan on 07/22/16 showed 3.9 X 3.1cm fluid collection- IR unable to drain safely due to location Continue diflucan 100mg daily IVPB Patient is progressing well, [facility]. Followup with appointment given in discharge packet. (2) HCAP (healthcare-associated pneumonia) Current Visit: Yes Status: Resolved Management per pulmonary/medicine service Zosyn discontinued 07/21 (3) Anemia Current Visit: Yes Status: Acute Last received 1 unite pRBC 07/22/16. Hgb 6.3>7.3>7.7>9.1>8.2>8.6 yesterday No new labs today Qualifiers: Anemia type: other cause Other causes of anemia: other cause, not classified Qualified Code(s): D64.89 - Other specified anemias (4) History of dysphagia Current Visit: Yes Status: Chronic Speech therapy consulted to evaluate and make recommendations for oral intake Continue mechanical soft diet with nectar liquids (5) DVT prophylaxis Current Visit: Yes Status: Acute Continue Lovenox 40mg daily for DVT prophylaxis Subjective Patient reports: no new complaints, feels better, pain is less, tolerating a regular diet (soft diet with nectar liquids), voiding w/o difficulty, flatus, bowel movement, afebrile Narrative: no nausea or vomiting with meals Objective Vital Signs - Last 8 Hours Temp Pulse Resp BP Pulse Ox 07/26/16 07:03 98.6 F 107 16 122/76 96 07/26/16 04:02 98.1 F 83 16 105/76 95 Intake and Output 07/25/16 07/26/16 07/26/16 23:59 07:59 15:59 Intake Total 0 / 0 Balance 0 / 0 Intake: Oral 0 / 0 Other: Meal Dinner Percent of Meal Consumed 0% Stool Size Moderate Stool Consistency soft formed # Bowel Movements 1 Weight 88.1 kg Patient Weight 07/26/16 23:59 Weight 88.1 kg - General physical appearance well developed, well nourished, no distress - Eyes normal ocular movement - ENT normal mucosa - Neck Neck exam: trachea midline - Respiratory normal respiratory effort, clear to auscultation - Abdomen Abdomen: Present: bowel sounds present, soft Abdominal Tenderness: suprapubic (mild) - Incision Incision: Present: open ((midline with adina) bandaged.) - Integumentary no rash - Musculoskeletal normal gait, normal posture - Psychiatric oriented to time - Labs 07/25/16 14:00 07/24/16 05:25 - VTE Documentation of Mechanical Device: Intermittent pneumatic compression device Consult Discharge Plan - Plan Additional Instructions: Wound care: cleans midline with soap and water, pack with 1/2 inch of plain gauze, cover with 4x4, and tape to secure daily PT/OT daily Followup with outpatient appointment 08/09 at 10:50 Referrals: Telly Boothe, [Partnered Physician] - 08/09/16 10:50 am [facility] [Primary Care Provider[facility] - 08/02/16 1:30 pm - Attending Attestation I examined this patient and my medical decision-making was reviewed with the [employer]/PA/Advanced Practice Nurse/Resident Physician. I agree with the documented findings, disposition and treatment plan as described except to the extent set forth below.
--- NOTE | 2016-07-26 16:02 | Discharge Summary ---
Date of Encounter: 07/26/16 Time of Encounter: 14:00 - Discharge Diagnosis (1) Perforated appendicitis Priority: Primary Status: Acute (2) Acute encephalopathy Priority: Primary Status: Acute (3) HCAP (healthcare-associated pneumonia) Priority: Secondary Status: Resolved (4) History of dysphagia Priority: Secondary Status: Chronic (5) DVT prophylaxis Priority: Secondary Status: Acute - Discharge Medications Prescriptions: HYDROcodone/Acet 5/325 mg [[place] 5-325 mg] 1 tab PO Q6HR PRN #14 tablet PRN Reason: Moderate Pain Carvedilol [Coreg] 6.25 mg PO BID #60 tablet Escitalopram [Lexapro] 10 mg PO DAILY #30 tablet Ipratropium/Albuterol Sulfate [Combivent Respimat Inhal Winner] 1 puff IH TID 30 Days Nicotine Patch [Nicoderm] 14 mg TD DAILY #14 patch.td24 OLANZapine [Zyprexa] 10 mg PO QPM #30 tablet OLANZapine [Zyprexa] 5 mg PO QAM #30 tablet Ranitidine HCl [Acid Director Equipment] 150 mg PO BID #60 tablet Sennosides/Docusate Sodium [Senna Plus] 1 each PO HS #30 tablet Tamsulosin [Flomax] 0.4 mg PO HS #30 capsule Home Medications: Carvedilol [Coreg] 6.25 mg PO BID #60 tablet 07/26/16 [Rx] Escitalopram [Lexapro] 10 mg PO DAILY #30 tablet 07/26/16 [Rx] HYDROcodone/Acet 5/325 mg [[place] 5-325 mg] 1 tab PO Q6HR PRN #14 tablet [Rx] Ipratropium/Albuterol Sulfate [Combivent Respimat Inhal Winner] 1 puff IH TID 30 Days 07/26/16 [Rx] Nicotine Patch [Nicoderm] 14 mg TD DAILY #14 patch.td24 07/26/16 [Rx] OLANZapine [Zyprexa] 5 mg PO QAM #30 tablet 07/26/16 [Rx] OLANZapine [Zyprexa] 10 mg PO QPM #30 tablet 07/26/16 [Rx] Ranitidine HCl [Acid Director Equipment] 150 mg PO BID #60 tablet 07/26/16 [Rx] Sennosides/Docusate Sodium [Senna Plus] 1 each PO HS #30 tablet 07/26/16 [Rx] Tamsulosin [Flomax] 0.4 mg PO HS #30 capsule 07/26/16 [Rx] Allergies/Adverse Reactions: Allergies haloperidol [From Haldol] Allergy (Verified 10/15/15 14:00) Hives Date of admission: 07/06/16 23:26 [facility] Consults: 07/08/16 13:02 Consult to Blending Line Attendant [CONS] Routine Reason for SW Consult: Discharge planning 07/09/16 20:19 Consult to Physical Therapy [CONS] Routine Comment: Evaluate, develop and implement POC OT [Consult to Occupational Therapy] [CONS] Routine Comment: Evaluate, develop and implement POC 07/10/16 12:35 Consult to Respiratory Therapy [CONS] Routine Reason for Consult: prn bipap 05/19 Call Completed: No 07/11/16 08:39 Consult to Invasive Line Access Team [CONS] Routine Reason for Consult: TPN Line Type: PICC Call Completed: No Consult to Nutrition [CONS] Routine Comment: Consulting Provider: NUTRITION Reason for Dietary Consult: TPN Start and Manage 07/11/16 10:24 Consult to Invasive Line Access Team [CONS] Routine Reason for Consult: Picc Line Insertion Line Type: PICC 07/13/16 15:20 Consult to Pulmonology [CONS] Routine Consulting Provider: Pulm Crit Care & Sleep Megan Reason for Consult: critical care mgmt. possible vent mgmt post op. HCAP Call Completed: Yes 07/18/16 12:31 Consult to Speech Therapy [CONS] Stat Comment: Evaluate, develop and implement POC Reason for Consult: evaluate swallow, may perform barium swallow if needed; may give clear liquids if safe to swallow Time Notified: 12:32 Call Completed: No 07/21/16 14:09 Consult to Interventional Radiology [CONS] Routine Consulting Provider: Radiology Interventional Cols Reason for Consult: Drainage of abscess Time Notified: 14:10 Call Completed: Yes 07/22/16 11:12 consult to import coordinator [Consult to Nutrition] [CONS] Routine Comment: decrease TPN to 50ml/hour Consulting Provider: NUTRITION Reason for Dietary Consult: TPN Start and Manage Discharging clinician: Shweta Arreola Anticipated date of discharge: 07/26/16 - Patient Status Disposition: Home Health Service Condition: Fair Functional capacity at discharge: independent ambulation Overall status at discharge: patient is progressing back to baseline - Discharge Instructions Follow Up With: Telly Boothe DO [Partnered Physician] - 08/09/16 10:50 am [facility],PCP [Primary Care Provider] - 08/02/16 1:30 pm Additional Instructions: Wound care: cleans midline with soap and water, pack with 1/2 inch of plain gauze, cover with 4x4, and tape to secure daily PT/OT daily Followup with outpatient appointment 08/09 at 10:50 - Diet and Activity Activity: increase activity as tolerated Diet: other ([place] thinkened Diet, Mechanical soft diet, ensure supplement.) Interval History: Mr. Melendez is a 66 year old male who presented to the hospital with 3 day history of abdominal pain. Patient describes pain as a sharp, stabbing pain that began umbilicus. Pain began to wrap around to sides bilaterally and radiated to the back. Pain is an 8/10 at this time. Upon onset of abdominal pain, patient had 4 episodes of non-bloody diarrhea. He began vomiting the following morning. Patient states that he has had a similar episode in the past. He claims that his "bowel twisted on itself". He was treated at [facility] in [place], [place]. However, he does not remember if he had a bowel resection was performed at that time. He states that pain was improved with lying down. Pain worsened with coughing. Pain has worsened over the last 3 days. Admits fever, chills, dizziness, racing heart, tachypnea, dyspnea, tensmus, nausea, vomiting Denies diaphoresis, chest pain, palpitations, increased cough with sputum, increased wheeze, hematochezia, melena, urinary symptoms Hospital course: Mr. Melendez is a 66 year old male admitted for perforated appendicitis. Surgical consult was called and patient had surgery. After surgery patient developed hospital acquired pneumonia. He was treated with antibiotics, his condition has improved. Patient was placed on TPN for several days and stopped this after he resumes his diet. Patient has difficult swallowing, swallowing evaluation was called and the recommendation was followed. After treatment the patient's condition had improved. He had good intake and good bowel movement. Patient was discharged home with home health. I saw and examined the patient today. He is awake alert, oriented 3. No fever , vitals are stable. Denies chest pain, shortness of breast, cough, nausea, no vomiting. Still having some incisional pain. Labs reviewed, hemoglobin is stable after transfusion. Discharge home with home health, follow-up with PCP and surgical team. Time spent discussing smoking cessation with patient: 3 to 10 minutes - Time Spent with Patient Total time spent providing and/or coordinating discharge services: 40 minutes Greater than 30 minutes - Constitutional Vitals: Temp Pulse Resp BP Pulse Ox 98.4 F 81 16 129/90 95 07/26/16 11:19 07/26/16 15:18 07/26/16 15:18 07/26/16 15:18 07/26/16 11:19 General appearance: Present: A&O X 3, no acute distress, answers questions appropriately - Head Head exam: Present: atraumatic, normocephalic - Eye Eye exam: Present: PERRL, conjuntiva pink, sclera anicteric Pupils: Present: PERRL - Neck Neck exam general surgery: Present: supple, trachea midline. Absent: lymphadenopathy - Respiratory Respiratory exam: Present: CTAB. Absent: accessory muscle use, rales, rhonchi, wheezes - Cardiovascular Cardiovascular exam: Present: RRR, +S1, +S2. Absent: diastolic murmur, gallop, rubs, systolic murmur - GI/Abdominal GI/Abdominal exam: Present: normal bowel sounds, soft, no peritoneal signs. Absent: distended, tenderness - Extremities Exam Extremities exam: Present: warm, radial pulses palpable and symetrical. Absent : calf tenderness, cyanotic, pedal edema - Neurological Exam Neurological exam: Present: CN II-XII intact, oriented X3, no focal deficits. Absent: pronater drift, facial droop, speech deficit - Skin Skin exam: Present: dry, intact - VTE Documentation of Mechanical Device: Intermittent pneumatic compression device
--- NOTE | 2016-07-26 16:15 | Physician Discharge Referral ---
Home Health/Hosp Referral Info Transfer to: Home Health - Diagnosis (1) Perforated appendicitis Status: Acute (2) Acute encephalopathy Status: Acute (3) HCAP (healthcare-associated pneumonia) Status: Resolved (4) History of dysphagia Status: Chronic (5) DVT prophylaxis Status: Acute - Respiratory Orders Smoking Cessation: Smoking cessation has been advised. For more information, call the [employer] Tobacco Quit Line at 7-414-FUUF-NOW. - Dressing/Wound Care Site: Per surgical instruction - Diet/Nutrition Diet/Nutrition Orders: Mechanical Soft (Anton Ruiz thinkened Diet, Mechanical soft diet, ensure supplement.) - Activity Activity Orders: Ambulate - Services Needed Following services are medically necessary services: Nursing, Home Health Aide - Transfer Medications Prescriptions: HYDROcodone/Acet 5/325 mg [[place] 5-325 mg] 1 tab PO Q6HR PRN #14 tablet PRN Reason: Moderate Pain Carvedilol [Coreg] 6.25 mg PO BID #60 tablet Escitalopram [Lexapro] 10 mg PO DAILY #30 tablet Ipratropium/Albuterol Sulfate [Combivent Respimat Inhal [place]] 1 puff IH TID 30 Days Nicotine Patch [Nicoderm] 14 mg TD DAILY #14 patch.[id number] OLANZapine [Zyprexa] 10 mg PO QPM #30 tablet OLANZapine [Zyprexa] 5 mg PO QAM #30 tablet Ranitidine HCl [Acid Auto Leasing Manager] 150 mg PO BID #60 tablet Sennosides/Docusate Sodium [Senna Plus] 1 each PO HS #30 tablet Tamsulosin [Flomax] 0.4 mg PO HS #30 capsule Home Medications: Carvedilol [Coreg] 6.25 mg PO BID #60 tablet 07/26/16 [Rx] Escitalopram [Lexapro] 10 mg PO DAILY #30 tablet 07/26/16 [Rx] HYDROcodone/Acet 5/325 mg [[place] 5-325 mg] 1 tab PO Q6HR PRN #14 tablet [Rx] Ipratropium/Albuterol Sulfate [Combivent Respimat Inhal [place]] 1 puff IH TID 30 Days 07/26/16 [Rx] Nicotine Patch [Nicoderm] 14 mg TD DAILY #14 patch.[id number] 07/26/16 [Rx] OLANZapine [Zyprexa] 5 mg PO QAM #30 tablet 07/26/16 [Rx] OLANZapine [Zyprexa] 10 mg PO QPM #30 tablet 07/26/16 [Rx] Ranitidine HCl [Acid Auto Leasing Manager] 150 mg PO BID #60 tablet 07/26/16 [Rx] Sennosides/Docusate Sodium [Senna Plus] 1 each PO HS #30 tablet 07/26/16 [Rx] Tamsulosin [Flomax] 0.4 mg PO HS #30 capsule 07/26/16 [Rx] Allergies/Adverse Reactions: Allergies haloperidol [From Haldol] Allergy (Verified 10/15/15 14:00) Hives Certification: Further, I certify that my clinical findings support that this patient is homebound (i.e. absences from home require considerable and taxing effort and are for medical reasons or spiritism services or infrequently or short duration when for other reasons) because: Homebound Reason: Patient requires assistance of a person or device to safely leave home Attestation: My signature below is to certify that this patient is under my care and that I, or nurse practitioner, or a physician's esl instructional assistant working with me, has a face-to -face encounter with this patient.
[2016-07-26 16:24] VITALS: BP 122/88
== END 2016-07-26 18:02 | disposition home health service (06) | DRG 853 ==
LOC: EMEROO 19:07 → SUATTDRO 23:26 → ICNU 23:26 → 2NENU 07-07 14:50 → ICNU 07-14 02:49 → 2NNU 07-16 12:24
PROVIDERS: ADMIT Family Medicine; ATTEND Internal Medicine